=== PATIENT | male | born 1975 | race Caucasian/White ===

== ENCOUNTER 2023-10-03 01:08 | Inpatient (IN) | payer MEDICARE, MEDICAID, SELFPAY ==
[2023-10-03] VITALS (41 sets, daily range): BP systolic 97–190; BP diastolic 56–123; PULSE 69–121; RESP 12–22; TEMP 35.9–36.9; O2SAT 17–99; BMI 24.0; BMI 23.8; BMI 24.2
--- NOTE | 2023-10-03 01:31 | EKG12_ITS ---
Test Reason : CP Blood Pressure : / mmHG Vent. Rate : 103 BPM Atrial Rate : 103 BPM P-R Int : 180 ms QRS Dur : 134 ms QT Int : 374 ms P-R-T Axes : 055 -58 100 degrees QTc Int : 489 ms Sinus tachycardia Left axis deviation Left ventricular hypertrophy with QRS widening and repolarization abnormality ( R in aVL , [place] pr oduct ) Abnormal ECG Confirmed by Ky Brown ([id number]), design editor LANETTE MACIAS ([id number]) on 10/03/2023 10:03:51 AM Referred By: MADDI Confirmed By:Ky Brown
--- NOTE | 2023-10-03 01:36 | EDS_ITS ---
HPI History of Present Illness Chief Complaint: Chest Pain Narrative Narrative: 48-year-old male past medical history of hypertension, coronary artery disease with 1 stent, and ICD/defibrillator placed at [facility] by Dr. Oliver. He states that he had been life flighted there from [facility] back in 2021. He has been noncompliant with his medications and presents for evaluation for intermittent chest pain that he has been having over the last week. He states the pain can last for hours. Sometimes it is associated with nausea and shortness of breath. Other times it may involve diaphoresis. He states that he had quit smoking, but started again and smokes 10 cigarettes a day. No real exacerbating or alleviating factors. He took his antihypertensive yesterday morning, but has not taken aspirin or any other of his medications. He states that he was on numerous medications including spironolactone and other antihypertensives but he cut it down to carvedilol only. Additionally, he states he wants to be evaluated and checked out because he had the hiccups today and thinks it might be related to the chest pain that he has been having. PFSH PFSH Medical History Alcohol abuse Anxiety Asthma Congestive heart failure (CHF) COPD (chronic obstructive pulmonary disease) Crohn's disease Heart attack HLD (hyperlipidemia) Hypertension ICD (implantable cardioverter-defibrillator) in place PAF (paroxysmal atrial fibrillation) Sleep apnea Tobacco use Home Medications alprazolam 0.5 mg tablet 0.5 mg PO TID 10/03/23 [History Last Taken Unknown] carvedilol 25 mg tablet 25 mg PO BID 10/03/23 [History Last Taken Unknown] spironolactone 25 mg tablet 25 mg PO DAILY 10/03/23 [History Last Taken Unknown] Allergy/AdvReac Type Severity Reaction Status Date / Time bee venom protein (honey bee) Allergy Mild Swelling Verified 10/03/23 01:16 Family History (Updated 10/03/23 @ 04:[address] Shellie Monsalve MD) Mother Hypertension Heart disease Father Hypertension CAD (coronary artery disease) Heart disease Myocardial infarction Surgical History Hx of heart artery stent S/P implantation of automatic cardioverter/defibrillator (AICD) Social History (Updated 10/03/23 @ 04:[address] Shellie Monsalve MD) household members: none Smoking Status: Current every day smoker tobacco type: cigarettes Smoking packs per day: 0.5 Smoking cigarettes per day: 10.0 alcohol intake: current alcohol intake frequency: 3 or more drinks per day details: Usually hard liquor, i.e. 7/7 drinks, 3 or more daily. substance use type: does not use ROS ROS ED ROS Narrative Constitutional: No fever, no chills. Intermittent diaphoresis HEENT: No sore throat. No neck pain. No loss of vision. No rhinorrhea. Cardiovascular: Positive chest pain. Positive hiccups. Sometimes chest pain can last hours. No palpitations. No pedal edema. Respiratory: No cough, intermittent shortness of breath. Abdominal: No abdominal pain. Positive nausea. No vomiting. Genitourinary: No dysuria. No hematuria. Musculoskeletal: No myalgias. No arthralgias. Neurologic: No headaches. No dizziness. No lightheadedness. Skin: No rash. No change in color. Psychiatric: No depression. No anxiety. EXAM Physical Exam Narrative Exam Narrative: Afebrile. Vital signs noted. HEENT: Normocephalic. Atraumatic. PERRL, EOMI. Neck soft and supple. No point tenderness or step off. Cardiovascular: Regular rate and rhythm. No murmurs, rubs, or gallops appreciated. Respiratory: No tachypnea. Lungs clear to auscultation bilaterally. Gastrointestinal: Abdomen soft, nontender, with normoactive bowel sounds. No rebound or guarding. Neurological: Awake. Alert. Nonfocal, nonlateralizing. Skin: No rash. Normal color. No pallor. Musculoskeletal: No pedal edema. Full range of motion extremities. Const Vital Signs: 10/03/23 01:09 10/03/23 01:16 10/03/23 01:17 Temperature 98.2 F Temperature Source Oral Pulse Rate 110 H Respiratory Rate 18 Respiratory Effort Normal Non-Labored Blood Pressure 190/112 H 184/123 H Blood Pressure Mean 138 143 Pulse Ox 95 Oxygen Delivery Method Room Air 10/03/23 01:33 10/03/23 01:38 10/03/23 02:51 Temperature 98.5 F Temperature Source Pulse Rate 99 121 H Respiratory Rate 20 H 17 Respiratory Effort Blood Pressure 158/106 H 150/93 H Blood Pressure Mean 123 112 Pulse Ox 93 17 Oxygen Delivery Method Room Air Room Air 10/03/23 01:36 10/03/23 01:37 10/03/23 01:45 Temperature Temperature Source Pulse Rate 86 86 87 Respiratory Rate 14 13 13 Respiratory Effort Blood Pressure 158/106 H Blood Pressure Mean 121 Pulse Ox 98 97 99 Oxygen Delivery Method 10/03/23 02:00 10/03/23 02:15 10/03/23 02:15 Temperature Temperature Source Pulse Rate 90 98 Respiratory Rate 17 18 Respiratory Effort Blood Pressure 150/93 H 150/93 H Blood Pressure Mean 110 110 Pulse Ox 96 98 Oxygen Delivery Method Room Air 10/03/23 02:35 10/03/23 02:45 10/03/23 03:00 Temperature Temperature Source Pulse Rate 117 H 107 H 107 H Respiratory Rate 17 18 18 Respiratory Effort Blood Pressure 175/104 H Blood Pressure Mean 123 Pulse Ox 95 97 96 Oxygen Delivery Method Room Air 10/03/23 03:45 10/03/23 04:00 Temperature Temperature Source Pulse Rate 98 74 Respiratory Rate 12 22 H Respiratory Effort Blood Pressure 166/115 H Blood Pressure Mean 129 Pulse Ox 96 95 Oxygen Delivery Method Heart Score History: Slightly/Non-Suspicious ECG: Normal Age: >45 - <65 years Risk Factors: >/= 3 Risk Factors or History of CAD Score: 3 MDM MDM MDM Narrative Medical decision making narrative: In the differential diagnosis is acute coronary syndrome including non-STEMI versus pulmonary embolism versus hypertensive urgency versus emergency. EKG was obtained and interpreted by myself independently as sinus tachycardia with widened QRS at [address] changes. No STEMI. Patient was administered aspirin orally. He was also administered hydralazine with resultant blood pressure 158/106. Pulse ox ranges from 93 to 95% on room air. I reviewed his laboratory work and he has a normal white count of 5.9, hemoglobin normal at 14.4, hematocrit slightly low at 39.9 with platelet count l ow at 145. His D-dimer is elevated at 1.96, CTA was ordered to help rule out pulmonary embolism. Sodium is slightly low at 135 which I think is nonspecific with potassium low at 3.0 which was replaced orally with 40 mEq. BUN normal at 8 with creatinine 0.99, glucose appropriately elevated at 108 with an anion gap normal at 12. Of significance is his troponin that is elevated as well. It is 586. His D-dimer may be elevated secondary to more of a coronary artery clot. Chest x-ray 1 view had been obtained and interpreted by myself independently as no acute process, no pneumothorax, no pneumonia. There is an implanted defibrillator device. I reviewed the radiology report which confirms my independent interpretation. Given his elevated troponin, APTT and PT will be obtained and he will be started on a heparin drip with a bolus for non-STEMI. Patient will be discussed with the hospitalist, Dr. Monsalve for admission. I did have a discussion with the patient regarding smoking cessation and compliance with antihypertensive and other medications. I reviewed the radiology report for the CTA and there is no evidence of pulmonary embolism. There is no aortic dissection as well. Patient was discussed with Dr. Klein with cardiology, and with Dr. Monsalve with hospitalist medicine. She will continue to trend the platelets while he is on a heparin drip. Disposition is admit in stable condition. History & Record Review Discussion w/independent historian: Patient Additional record(s) reviewed:: No prior records Lab Data Attestation: I reviewed the patient's lab results. Labs: Laboratory Results - last 24 hr 10/03/23 01:15 WBC 5.9 RBC 4.11 L Hgb 14.4 Hct 39.9 L MCV 97.1 H MCH 35.0 H MCHC 36.1 H RDW Std Deviation 82.1 H RDW Coeff of Amanda 24.1 H Plt Count 145 L MPV 9.3 Immature Gran % (Auto) 0.300 Neut % (Auto) 58.3 Lymph % (Auto) 27.5 Becker % (Auto) 9.3 Eos % (Auto) 2.9 Baso % (Auto) 1.7 H Absolute Neuts (auto) 3.4 Absolute Lymphs (auto) 1.62 Nucleated RBC % 0 Differential Comment SCANNED PT 12.0 INR 0.9 APTT 31.4 D-Dimer Quant (PE/DVT) 1.96 H* Sodium 135 L Potassium 3.0 L Chloride 99 Carbon Dioxide 24.0 Anion Gap 12 BUN 8 Creatinine 0.99 Estim Creat Clear Calc 84.39 Est GFR (MDRD) Af Amer 103 Est GFR (MDRD) Non-Af 85 BUN/Creatinine Ratio 8.0 L Glucose 108 H Calcium 8.5 Troponin I High Sens 586 H* Radiography Diagnostic Testing: Clinical Impression(s) from Imaging Studies Chest X-Ray 10/03/23 01:47 IMPRESSION: 1. Implanted defibrillator. 2. No evidence for acute cardiopulmonary pathology. Electronically Signed: Wesley Arcos MD at 2:35 EDT , Chest CTA 10/03/23 02:15 IMPRESSION: 1. No evidence for pulmonary embolism, aortic aneurysm, or aortic dissection. 2. No evidence for acute cardiopulmonary pathology. 3. Coronary artery calcifications. 4. Implanted defibrillator. 5. Fatty liver. Electronically Signed: Wesley Arcos MD at 4:10 EDT , Management Discussion w/another healthcare provider: Hospitalist (Dr. Monsalve) and Director Of Vocational Guidance (Dr. Klein) Discharge Plan Dx/Rx/DC Orders Clinical Impression: Hypertensive emergency, Non-ST elevation MD (NSTEMI), Elevated d-dimer, Hypokalemia Disposition Disposition: Acute Care Hospital [facility]
[2023-10-03] MEDS: hydrALAZINE 20 MG/ML Vial 10 MG IV ×3 (01:39→16:50)
[2023-10-03] MEDS: Aspirin 81 MG TAB.CHEW 324 MG PO (01:39)
[2023-10-03 01:40] LABS: Absolute Lymphocyte Count 1.62 X10^3/uL (0.83-4.51); Absolute Neutrophil Count 3.4 X10^3/uL (2.0-7.7); Basophil% 1.7 % (0-1); Eosinophil# 0.17 X10^3/uL; Eosinophils% 2.9 % (0-5); Hematocrit 39.9 % (40-54); Hemoglobin 14.4 g/dL (13.0-16.5); Lymphocyte # 1.62 X10^3/ul (0.83-4.51); Lymphocyte % 27.5 % (19-41); Mean Corp Hgb Conc 36.1 g/dL (32-36); Mean Corpuscular Volume 97.1 fL (80-94); Mean Platelet Vol. 9.3 fl (6.2-12.0); Monocyte# 0.55 X10^3/uL; Monocyte% 9.3 % (0-10); NRBC Flagged by Analyzer 0 % (0-5); Neutrophil # 3.44 X10^3/uL (2.7-7.7); Neutrophil % 58.3 % (47-70); POSITIVE MORPHOLOGY YES; Platelet Count 145 K/mm3 (150-450); RBC Distribution Width CV 24.1 % (11.6-14.6); RBC Distribution Width SD 82.1 fl (35.1-43.9); Red Blood Count 4.11 M/mm3 (4.6-6.2); White Blood Count 5.9 K/mm3 (4.4-11.0)
--- NOTE | 2023-10-03 01:47 | RAD_ITS ---
EXAM: XR CHEST, 1 VIEW CLINICAL INDICATION: chest pain chest pain TECHNIQUE: Frontal view of the chest. COMPARISON: No relevant prior studies available. FINDINGS: LUNGS AND PLEURAL SPACES: Unremarkable. No consolidation or edema. No pneumothorax. No effusion. HEART: Unremarkable. Cardiac silhouette not enlarged. MEDIASTINUM: Central airways and mediastinal contour are unremarkable. BONES/JOINTS: There is an old healed fracture of the right seventh rib. SOFT TISSUES: Unremarkable. TUBES, LINES AND DEVICES: There is an implanted defibrillator with electrode overlying the left para midline chest. RAD/Chest 1 View (Portable) IMPRESSION: 1. Implanted defibrillator. 2. No evidence for acute cardiopulmonary pathology. Electronically Signed: Wesley Arcos MD at 2:35 EDT Reading Location ID and State: [facility] / [place] , Service support ,
[2023-10-03 01:52] LABS: Differential Comment SCANNED; Differential Indicated SCAN CRITERIA MET
[2023-10-03 02:15] LABS: D-Dimer Quantitative (DVT/PE) 1.96 FEU/ug/m (0.27-0.49)
--- NOTE | 2023-10-03 02:15 | CT_ITS ---
EXAM: CT ANGIOGRAPHY CHEST WITHOUT AND WITH INTRAVENOUS CONTRAST CLINICAL INDICATION: elevated D dimer. left sided cp today, hx afib, heart stents, asthma, copd, chf, ICD, htn, alcohol abuse TECHNIQUE: Helically acquired angiography images were obtained of the chest without and with intravenous contrast. This CT exam was performed using one or more of the following dose reduction techniques: automated exposure control, adjustment of the mA and/or kV according to patient size, and/or use of iterative reconstruction technique. MIP reconstructed images were created and reviewed. CONTRAST: IV 100mL [id number] RADIATION DOSE: CTDIvol = 5.31 mGy, DLP = 220.43 mGy-cm COMPARISON: Chest x-ray 10/03/2023. FINDINGS: PULMONARY ARTERIES: Unremarkable. Normal in caliber. No evidence of pulmonary embolism. AORTA: Unremarkable. Normal in caliber. No evidence of dissection. GREAT VESSELS OF AORTIC ARCH: Unremarkable. Normal in caliber. No evidence of dissection. LUNGS AND PLEURAL SPACES: Unremarkable. No mass. No consolidation or edema. No pleural effusion or thickening. No pneumothorax. HEART: There are coronary artery calcifications. Heart size is normal. No pericardial effusion. MEDIASTINUM: Unremarkable. No mediastinal or hilar adenopathy. Esophagus is unremarkable. No hiatal hernia. THYROID: Unremarkable. No thyroid lesions. BONES/JOINTS: An old healed fracture of the lateral segment of the right seventh rib. There are multilevel degenerative changes in the visualized spine. No suspicious lytic or blastic abnormality. LIVER: There is decreased attenuation of liver consistent with fatty infiltration. TUBES, LINES AND DEVICES: There is an implanted defibrillator, with electrode in subcutaneous fat anterior to the sternum. CT/CTA Chest W/WO Contrast IMPRESSION: 1. No evidence for pulmonary embolism, aortic aneurysm, or aortic dissection. 2. No evidence for acute cardiopulmonary pathology. 3. Coronary artery calcifications. 4. Implanted defibrillator. 5. Fatty liver. Electronically Signed: Wesley Arcos MD at 4:10 EDT Reading Location ID and State: [facility] / [place] , Service support ,
[2023-10-03 02:19] LABS: Anion Gap 12 (5-15); BUN 8 mg/dL (7-18); Calcium,Total 8.5 mg/dL (8.5-10.1); Chloride 99 mmol/L (98-107); Creatinine, Serum 0.99 mg/dL (0.70-1.30); EST Glomerular Filtration Rate 85 mL/min (>60); Est Glom Filt Rate - Afr Amer 103 mL/min (>60); Estimated Creatinine Clearance 84.39 ml/min; Glucose 108 mg/dL (74-106); Sodium Level 135 mmol/L (136-145); Troponin-I HS (w/2H Reflex) 586 pg/mL (3.0-78.0)
[2023-10-03] MEDS: HEPARIN/D5w 25,000 UNITS 25,000 UNITS/250 ML IV.SOLN. 8 UNITS CONT INF (02:43)
[2023-10-03] MEDS: Heparin Injection (Vial) 5,000 UNIT/ML VIAL 4000 UNIT IV (02:43)
[2023-10-03] MEDS: Potassium Chloride Oral Tablet 20 MEQ 40 MEQ PO ×2 (02:44→08:58)
[2023-10-03] MEDS: ALPRAZolam 0.5 MG Tablet PO (02:56)
[2023-10-03 03:00] LABS: International Normalized Ratio 0.9
[2023-10-03 03:01] LABS: Partial Thromboplast Time 31.4 Seconds (24.1-36.2)
--- NOTE | 2023-10-03 03:27 | HP.PCM.HOS_ITS ---
HPI - General General Date of Admission: 10/03/23 Date of Service: 10/03/23 Chief Complaint: Chest pain HPI Narrative The patient is a 48 y/o M w/ PMHx: EtOH abuse (3 or more EtOH drinks daily, often hard liquor drinks) with chronic LFT elevations, LIZ noncompliant with PAP therapy, PAF, Asthma/COPD, HTN, HLD, CAD s/p PCI x 1 per patient report following with cardiology in the [facility] system Dr. Oliver, Presumed HFrEF s/p AICD placement/suspected Ischemic cardiomyopathy but uncertain, Crohn's disease, Tobacco use who presents to the [facility] ED on 10/03/23 with history of significant noncompliance with his medications purposefully weaning himself off various portions of his regimen with ongoing intermittent left sided chest discomfort over the last week sometimes lasting hours associate with nausea without emesis as well as dyspnea and diaphoresis recently resumed smoking as he had previously quit also admitting that he has not been taking his aspirin therapy or statin therapy but on day of presentation he started having dyspepsia as well as hiccups in addition to ongoing chest discomfort with episodes of nausea, dyspnea and diaphoresis prompting eventual ED evaluation. Patient describes the discomfort in his chest as a burning aching sensation to the left chest. He denies any radiation to his arm or neck region. He does not have a current PCP but would like to establish thus options discussed. He is interested in help with EtOH abuse. He notes willingness to restart medications if felt necessary. He notes his pain when it has been at its worst has been 5-6 out of 10 in severity, currently down to 2-3 out of 10 in severity upon current evaluation. Workup in the ED included T98.2, heart rate 110, BP 190/112, respiratory rate 18, 95% on room air with most recent repeat vitals heart rate 98, BP 150/93, respiratory rate 18, 98% on room air, CBC with WBC 5.9, hemoglobin 14.4, platelet 145 without marked shift, unremarkable coags aside D-dimer 1.96, BMP with sodium 135, potassium 3.0, glucose 108, initial troponin 586, chest x-ray with no acute cardiopulmonary findings with implanted defibrillator, CTPA with no acute PE, aortic aneurysm or dissection, no acute cardiopulmonary pathology, implanted defibrillator present, fatty liver, EKG with sinus tachycardia with no acute evidence of ischemia. In the ED patient ministered full-strength aspirin therapy, heparin drip initiated with bolus, alprazolam 0.5 mg p.o. x 1, potassium chloride 40 mill equivalent p.o. x 1 as well as hydralazine 10 mg IV x 1 administered. Discussed with ED and they note intention to review case with Cardiology Dr. Klein given presentation with NSTEMI and underlying history with need for cardiac catheterization consideration. PFSH Medical History Alcohol abuse Anxiety Asthma Congestive heart failure (CHF) COPD (chronic obstructive pulmonary disease) Crohn's disease Heart attack HLD (hyperlipidemia) Hypertension ICD (implantable cardioverter-defibrillator) in place PAF (paroxysmal atrial fibrillation) Sleep apnea Tobacco use Home Medications alprazolam 0.5 mg tablet 0.5 mg PO TID 10/03/23 [History Last Taken Unknown] carvedilol 25 mg tablet 25 mg PO BID 10/03/23 [History Last Taken Unknown] spironolactone 25 mg tablet 25 mg PO DAILY 10/03/23 [History Last Taken Unknown] Allergy/AdvReac Type Severity Reaction Status Date / Time bee venom protein (honey bee) Allergy Mild Swelling Verified 10/03/23 01:16 Family History (Updated 10/03/23 @ 04:[address] Shellie Monsalve MD) Mother Hypertension Heart disease Father Hypertension CAD (coronary artery disease) Heart disease Myocardial infarction Surgical History Hx of heart artery stent S/P implantation of automatic cardioverter/defibrillator (AICD) Social History (Updated 10/03/23 @ 04:[address] Shellie Monsalve MD) household members: none Smoking Status: Current every day smoker tobacco type: cigarettes Smoking packs per day: 0.5 Smoking cigarettes per day: 10.0 alcohol intake: current alcohol intake frequency: 3 or more drinks per day details: Usually hard liquor, i.e. 7/7 drinks, 3 or more daily. substance use type: does not use ROS ROS Narrative Admission Review of Systems: CONSTITUTIONAL: No weight loss, fever, chills, + weakness or fatigue. HEENT: Eyes: No visual loss, blurred vision, double vision or yellow sclerae. Ears, Nose, Throat: No hearing loss, sneezing, congestion, runny nose or sore throat. SKIN: No rash or itching, lesions, wounds. CARDIOVASCULAR: + Chest pain. No palpitations, edema, orthopnea, syncopal events. RESPIRATORY: No shortness of breath, cough or sputum, wheezing, hemoptysis. GASTROINTESTINAL: + Recent increased hiccups, occasional nausea and dyspepsia. No emesis, diarrhea, constipation, abdominal pain, melena, BRBPR. GENITOURINARY: No dysuria, frequency, urgency or retention. NEUROLOGICAL: + Reports tremors/tactiles disturbances when he does not drink, denies any currently. No headache, dizziness, syncope, paralysis, ataxia, numbness or tingling in the extremities, focal weakness, change in bowel or bladder control, seizure. MUSCULOSKELETAL: + muscle, back pain, joint pain or stiffness. HEMATOLOGIC: No anemia, bleeding or bruising. LYMPHATICS: No enlarged nodes. No history of splenectomy. PSYCHIATRIC: + History of anxiety. ENDOCRINOLOGIC: + reports of sweating, cold or heat intolerance. No polyuria or polydipsia. ALLERGIES: + History of asthma. Vital Signs Vital Signs Vital Signs: 10/03/23 01:09 10/03/23 01:16 10/03/23 01:17 Temperature 98.2 F Temperature Source Oral Pulse Rate 110 H Respiratory Rate 18 Respiratory Effort Normal Non-Labored Blood Pressure 190/112 H 184/123 H Blood Pressure Mean 138 143 Pulse Ox 95 Oxygen Delivery Method Room Air 10/03/23 01:33 10/03/23 01:38 10/03/23 02:51 Temperature 98.5 F Temperature Source Pulse Rate 99 121 H Respiratory Rate 20 H 17 Respiratory Effort Blood Pressure 158/106 H 150/93 H Blood Pressure Mean 123 112 Pulse Ox 93 17 Oxygen Delivery Method Room Air Room Air 10/03/23 01:36 10/03/23 01:37 10/03/23 01:45 Temperature Temperature Source Pulse Rate 86 86 87 Respiratory Rate 14 13 13 Respiratory Effort Blood Pressure 158/106 H Blood Pressure Mean 121 Pulse Ox 98 97 99 Oxygen Delivery Method 10/03/23 02:00 10/03/23 02:15 10/03/23 02:15 Temperature Temperature Source Pulse Rate 90 98 Respiratory Rate 17 18 Respiratory Effort Blood Pressure 150/93 H 150/93 H Blood Pressure Mean 110 110 Pulse Ox 96 98 Oxygen Delivery Method Room Air 10/03/23 02:35 10/03/23 02:45 10/03/23 03:00 Temperature Temperature Source Pulse Rate 117 H 107 H 107 H Respiratory Rate 17 18 18 Respiratory Effort Blood Pressure 175/104 H Blood Pressure Mean 123 Pulse Ox 95 97 96 Oxygen Delivery Method Room Air Weight Weight: 153 lb 3.54 oz Body Mass Index (BMI) 24.0 Physical Exam Narrative Physical Examination: General: Awake, alert, oriented x 3 and cooperative, seated upright in the ED bed, notes discomfort is better, currently 2-3 out of 10 in severity of the left chest. Skin: Normal color, normal turgor, no icterus, no cyanosis. Except occasional staged ecchymoses HEENT: AT/NC, EOMI, PERRLA, MMM, no carotid bruits or JVD noted. Lungs: Mildly diminished, greater bases, appropriate effort, no rales, ronchi or wheezing. Heart: Regular rate and rhythm; no gallop, rub audible. Abdomen: Soft, NTTP, ND, mildly hyperactive BS, no severely noted HSM. Extremities: No cyanosis, clubbing, or edema. Neurological: Patient awake, alert, oriented as noted, cognitive function intact; pupils equally reactive to light and accommodation, cranial nerves gross ly normal, moving all 4 extremities, no focal deficits, strength moderately globally Precious secondary to acute presentation complaints Psychiatric: Affect appears fatigued otherwise normal, no acute evidence of depressive or anxiety feelings but does have underlying history. Results Lab / Micro Data 10/03/23 01:15 10/03/23 01:15 Labs: Laboratory Results - last 24 hr 10/03/23 01:15: WBC 5.9, RBC 4.11 L, Hgb 14.4, Hct 39.9 L, MCV 97.1 H, MCH 35.0 H, MCHC 36.1 H, RDW Std Deviation 82.1 H, RDW Coeff of Amanda 24.1 H, Plt Count 145 L, MPV 9.3, Immature Gran % (Auto) 0.300, Neut % (Auto) 58.3, Lymph % (Auto) 27.5, Hinds % (Auto) 9.3, Eos % (Auto) 2.9, Baso % (Auto) 1.7 H, Absolute Neuts (auto) 3.4, Absolute Lymphs (auto) 1.62, Nucleated RBC % 0, Differential Comment SCANNED, PT 12.0, INR 0.9, APTT 31.4, D-Dimer Quant (PE/DVT) 1.96 H*, Sodium 135 L, Potassium 3.0 L, Chloride 99, Carbon Dioxide 24.0, Anion Gap 12, BUN 8, Creatinine 0.99, Estim Creat Clear Calc 84.39, Est GFR (MDRD) Af Amer 103, Est GFR (MDRD) Non-Af 85, BUN/Creatinine Ratio 8.0 L, Glucose 108 H, Calcium 8.5, Troponin I High Sens 586 H* Imaging Radiology Impression Chest X-Ray 10/03/23 01:47 IMPRESSION: 1. Implanted defibrillator. 2. No evidence for acute cardiopulmonary pathology. Electronically Signed: Wesley Arcos MD at 2:35 EDT Reading Location ID and State: [facility] / [place] , Service support , Assessment & Plan Assessment/Plan (1) Non-ST elevation MD (NSTEMI): (2) Hypertensive emergency: PLAN: Plan The patient is a 48 y/o M w/ PMHx: [facility] records of EtOH abuse with chronic LFT elevations, PAF, Asthma/COPD, HTN, HLD, CAD s/p PCI x 1 per patient report following with cardiology in the [facility] Dr. Oliver, Presumed HFrEF s/p AICD placement/suspected Ischemic cardiomyopathy but uncertain, Crohn's disease, Tobacco use who presents to the [facility] ED on 10/03/23 with history of significant noncompliance with his medications purposefully weaning himself off various portions of his regimen with ongoing intermittent chest discomfort over the last week sometimes lasting hours associate with nausea without emesis as well as dyspnea and diaphoresis recently resumed smoking as he had previously quit also admitting that he has not been taking his aspirin therapy or statin therapy but on day of presentation he started having dyspepsia as well as hiccups in addition to ongoing chest discomfort with episodes of nausea, dyspnea and diaphoresis prompting eventual ED evaluation. #1. Chest Pain w/ Acute NSTEMI complicated by #2: EKG in ED w/ ST without acute evidence of ischemia, CXR w/ no acute cardiopulmonary findings, CTPA with no acute PE, aortic aneurysm or dissection, no acute cardiopulmonary pathology, implanted defibrillator present, fatty liver, Trop elevated, 586 initial. Will admit to PCU, maintain on a monitored bed, continue serial cardiac enzymes and EKGs. Obtain magnesium level upon admission. Will continue heparin drip initiated in the ED with bolus already administered. Continue medical management w/ asa, BB, statin w/ AM FLP. ECHO requested. Cardiology consulted. Maintain NPO after midnight. ASA, NG, morphine. Requested records from [facility] as patient had cardiac care in the system. #2. Hypertensive emergency: Patient admits to being noncompliant with his hypertensive medications which unfortunately has likely in part led to his significantly elevated blood pressure coupled with #1, in the ED patient ministered hydralazine 10 mg IV x 1 with good effect, will continue Coreg, spironolactone and given no allergy listed will initiate at least moderate dose DANN inhibitor, as needed IV hydralazine. Any regimen adjustments or changes to discretion of cardiology. From review of also previous records appears to have been on hydralazine 100 mg p.o. 3 times daily as well as high-dose Imdur at some point. #3. Hypokalemia: Admission K+ 3.0, magnesium level requested, supplementation given, repeat level in AM. #4. Presumed HFrEF s/p AICD placement/suspected Ischemic cardiomyopathy but uncertain: Will continue aspirin, adding high-dose statin, continue Coreg, adding at least moderate dose DANN inhibitor, continue spironolactone, not on any other diuretic regimen, judiciously hydrate given likely need for cardiac catheterization and unclear history. Echocardiogram requested. Will request AICD interrogation. Requested records from [facility] as patient had cardiac care in the system. #5. Hyponatremia, suspect chronic component: Admission sodium 135, chloride 99, does have alcohol abuse history, potentially could be small component of hypovolemia given recent ongoing discomfort and potentially decreased oral intake, will judiciously hydrate given underlying heart failure history and repeat CMP in AM. #6. CAD w/ Hx MD including STEMI: Status post previous PCI, will maintain on aspirin, adding high-dose statin, continue Coreg, adding DANN inhibitor given significant elevated blood pressure upon presentation, from review with patient unfortunately he has been noncompliant and doing weaning himself off of medications. Requested records from [facility] as patient had cardiac care in the system. #7. PAF: We will continue patient home Coreg regimen, per current list does not appear to be anticoagulated but again patient has been noncompliant with medical therapies, currently maintained on heparin drip given acute presentation number 1 but following would be appropriate to transition back to potentially a NOAC. #8. Alcohol abuse with chronically elevated LFTs: Will obtain hepatic profile to be cautious. Patient notes routine consumption of often 3 or more EtOH liquor drinks per day. Will maintain on CIWA protocol, MVI, thiamine and folic acid. CM consulted. Encouraged consideration of alcohol withdrawal protocol treatment with phenobarbital and patient notes that if he begins to have symptoms he will pursue this. #9. Hyperlipidemia: Per current list does not appear to be on statin therapy, will add high-dose, FLP in AM. #10. Thrombocytopenia, unclear chronicity: Admission platelets 145, no comparison, unclear if chronic or acute, will repeat CBC to further elucidate. #11. Chronic COPD/asthma: Per current list not on any chronic regimen, given presentation to maximize pulmonary status will initiate on ATC budesonide the rapy, PRN albuterol, HOB, IS parameters. #12. Tobacco Abuse: Encouraged cessation, inpatient consultation per RT, NR if desired. #13. Crohn's disease: Per current list does not appear to be on chronic regimen however verifying, encourage continued outpatient follow-up with gastroenterology as previously arranged. #14. Anxiety: Although patient has been prescribed 3 times daily alprazolam he denies taking this recently thus we will at this time discontinue especially given underlying alcohol abuse. #15. LIZ: Noncompliant, encourage CPAP q HS. #16. DVT Prophylaxis: Continue heparin drip initiated in the ED. #17. CODE status: Patient HCPOA and living will are not in place but he notes his fianc?e would be his decision-maker if necessary. Discussed CODE status at length including difference between FULL code, DNR-CCA and DNR-CC status. Following discussions about the differences in these status, requested Full Code status. Advanced Care Planning Face to Face Time: 16 minutes. Charges/Coding Visit Charges Inpatient E&M: 12985 Init Hosp L3 Procedures Hospitalists Procedures: 53604 Advncd Care Plan 30 Min
[2023-10-03 03:35] LABS: Reflex Troponin-HS? (from REC) Y
[2023-10-03 04:21] LABS: Troponin-I HS 624 pg/mL (3.0-78.0)
[2023-10-03 04:54] LABS: AST(SGOT) 77 U/L (15-37); Alanine Aminotransfer ALT/SGPT 48 U/L (16-61); Albumin, Serum 3.3 g/dL (3.2-5.0); Alkaline Phosphatase 239 U/L (45-117); Bilirubin, Direct 0.41 mg/dL (0.00-0.30); Globulin 3.4 g/dL (2.2-4.2); Magnesium 1.5 mg/dL (1.6-2.6); Phosphorus 2.1 mg/dL (2.5-4.9); Protein, Total 6.7 g/dL (6.4-8.2)
--- NOTE | 2023-10-03 05:39 | EKG12_ITS ---
Test Reason : ADMISSION EKG Blood Pressure : / mmHG Vent. Rate : 102 BPM Atrial Rate : 102 BPM P-R Int : 170 ms QRS Dur : 126 ms QT Int : 394 ms P-R-T Axes : 062 -53 094 degrees QTc Int : 513 ms Sinus tachycardia with occasional Premature ventricular complexes Possible Left atrial enlargement Left axis deviation Left ventricular hypertrophy with QRS widening ( [place] product ) Cannot rule out Septal infarct , age undetermined Abnormal ECG When compared with ECG of 03-OCT-2023 01:06, MANUAL COMPARISON REQUIRED, DATA IS UNCONFIRMED Confirmed by JACQUELINE ROGERS, LALO ([id number]), editor map LANETTE MACIAS ([id number]) on 10/03/2023 9:40:41 AM Referred By: Confirmed By:LALO PHILLIPS MD
--- NOTE | 2023-10-03 05:39 | ECHOCS_ITS ---
Reason For Study: Chest pain Procedure This was a 2D Doppler, Color Flow transthoracic echocardiogram. The study was technically difficult. Exam performed portable in patient room. Left Ventricle Normal LV size. Severe concentric left ventricular hypertrophy. The estimated ejection fraction is 50 %. Mild segmental systolic dysfunction (see wall motion). Stage 1 diastolic dysfunction. Mid- Inferior: Hypokinetic. Infero-Basal: Akinetic. Mid-Posterior: Hypokinetic. Posterior-Basal: Severely hypokinetic. Right Ventricle Normal RV size. Normal systolic function. Atria Normal left atrium. Normal right atrium. Mitral Valve Normal mitral valve. Tricuspid Valve Normal tricuspid valve. Aortic Valve Trisinus/trileaflet aortic valve. Pulmonic Valve Normal pulmonic valve. Great Vessels Normal aortic root. The pulmonary artery is normal size. Inferior vena cava collapse with respiration. Pericardium/Pleural No pericardial effusion. Medication Diluted definity 2ml given slow IV push to enhance endocardial definition. MMode/2D Measurements & Calculations LVIDd: 4.0 cm IVSd: 1.7 cm Ao root diam: 3.5 cm LVIDs: 2.6 cm LVPWd: 1.5 cm RVDd: 2.9 cm FS: 35.4 % LAV(MOD-bp): 45.5 ml LVAd ap4: 35.6 cm2 LVAd ap2: 29.9 cm2 LAV(MOD-bp) Indexed: 25.2 ml/m2 LVLd ap4: 8.9 cm LVLd ap2: 8.6 cm LAV(MOD-sp2): 50.5 ml EDV(MOD-sp4): 121.2 ml EDV(MOD-sp2): 90.9 ml LAV(MOD-sp4): 36.0 ml EDV(sp4-el): 121.0 ml EDV(sp2-el): 87.7 ml LVAs ap4: 19.7 cm2 LVAs ap2: 16.8 cm2 LVLs ap4: 7.8 cm LVLs ap2: 7.6 cm ESV(MOD-sp4): 42.0 ml ESV(MOD-sp2): 35.2 ml ESV(sp4-el): 42.0 ml ESV(sp2-el): 31.7 ml EF(MOD-sp4): 65.4 % EF(MOD-sp2): 61.3 % EF(sp4-el): 65.3 % SV(MOD-sp4): 79.2 ml SV(MOD-sp2): 55.8 ml SV(sp4-el): 78.9 ml LA A4 area: 15.1 cm2 LA dimension(2D): 4.0 cm RA A4 area: 13.2 cm2 TAPSE: 1.6 cm Time Measurements MV dec time: 0.23 sec Doppler Measurements & Calculations MV E max izaiah: 58.3 cm/sec Lat Peak E' Izaiah: 10.4 cm/sec Med Peak E' Izaiah: 6.2 cm/sec MV A max izaiah: 64.2 cm/sec E/E' lat: 5.6 E/E' med: 9.4 MV E/A: 0.91 Ao V2 max: 101.5 cm/sec LV V1 max: 97.3 cm/sec MV dec slope: 255.6 cm/sec2 Ao max P.1 mmHg LV V1 max P.8 mmHg Ao V2 mean: 70.9 cm/sec LV V1 mean P.1 mmHg Ao mean P.3 mmHg LV V1 mean: 68.4 cm/sec Ao V2 VTI: 16.5 cm LV V1 VTI: 14.3 cm AV (velocity ratio): 0.87 PA V2 max: 88.8 cm/sec ECHO/Echo Complete W/ Contrast Interpretation Summary Normal LV size. Severe concentric left ventricular hypertrophy. The estimated ejection fraction is 50 %. Mild segmental systolic dysfunction (see wall motion). Stage 1 diastolic dysfunction. Structurally normal valves. Contrast injection was performed. Ordering Physician: Shellie Monsalve Performed By: Trae Giron RCS
[2023-10-03] MEDS: 0.9% Normal Saline (1000mL) 1,000 ML 100 ML IV (06:16)
[2023-10-03] MEDS: Potassium Phosphate 21 MM in 0.9% Normal Saline (250mL Bag) 250 ML 84 MM IV (06:17)
[2023-10-03] MEDS: 0.9% Saline Lock 10 ML Syringe IV ×2 (06:21→16:36)
--- NOTE | 2023-10-03 06:21 | CON.PCM.CA_ITS ---
Assessment & Plan Assessment/Plan (1) Non-ST elevation SC (NSTEMI): PLAN: He presents with a non-ST elevation myocardial infarction. He has had a previous coronary artery stenting. He has been noncompliant with his medications and unfortunately continues to use tobacco products. My recommendation will be as follows: * Aspirin * Restart carvedilol * Left heart catheterization which demonstrated patent stent in the left anterior descending artery and a totally occluded right coronary artery with [id number] collaterals. * High intensity statin * I will recommend medical therapy. (2) Hypertensive emergency: PLAN: His blood pressure is uncontrolled because of noncompliance. I would recommend restarting the carvedilol * Restart him on lisinopril * May need to add amlodipine * Continue spironolactone * Echocardiogram to assess ventricular function which demonstrated an ejection fraction of approximately 50% with segmental wall motion abnormalities present. * Replace electrolytes. (3) ICD (implantable cardioverter-defibrillator) in place: PLAN: He does have a subcutaneous ICD in place. This will need to be interrogated and he will need to be seen through our device clinic as well. Will ask our device nurse to evaluate him sometime. Thank you for allowing me to participate in the care of your patient. Please don't hesitate to call if any issues arise. HPI Consult Data Date of Consult: 10/03/23 HPI Narrative HPI Narrative: KARTHIK TOUSSAINT, is a 48 M who presents to the emergency room with chest discomfort. He has a history of hypertension, coronary artery disease, chronic tobacco abuse, status post previous stenting, and subcutaneous ICD implantation at [facility] by Dr. Valdovinos. This was in 2021. He has been noncompliant with his medications and only take his carvedilol. He has not been on any aspirin or clopidogrel. He says that he has been having intermittent chest discomfort over the last week occasionally associated with nausea and some shortness of breath and diaphoresis. Yesterday he presented back with the same to the emergency room was evaluated was noted to have rising cardiac enzymes. His blood pressure was also elevated. Cardiology was consulted for further evaluation and management. At this particular time he remains pain-free. He also did have some hiccups which he says were bothersome. [facility] Medical History Alcohol abuse Anxiety Asthma Congestive heart failure (CHF) COPD (chronic obstructive pulmonary disease) Crohn's disease Heart attack HLD (hyperlipidemia) Hypertension ICD (implantable cardioverter-defibrillator) in place PAF (paroxysmal atrial fibrillation) Sleep apnea Tobacco use Home Medications carvedilol 25 mg tablet 25 mg PO BID 10/03/23 [History Last Taken Unknown] spironolactone 25 mg tablet 25 mg PO DAILY 10/03/23 [History Last Taken Unknown] Allergy/AdvReac Type Severity Reaction Status Date / Time bee venom protein (honey bee) Allergy Mild Swelling Verified 10/03/23 01:16 Family History Mother Hypertension Heart disease Father Hypertension CAD (coronary artery disease) Heart disease Myocardial infarction Surgical History Hx of heart artery stent S/P implantation of automatic cardioverter/defibrillator (AICD) Social History household members: none number of children: 1 service: No current occupational status: disabled pets and animals: No Smoking Status: Current every day smoker tobacco type: cigarettes Smoking packs per day: 0.5 Smoking cigarettes per day: 10.0 alcohol intake: current alcohol intake frequency: 3 or more drinks per day details: Whiskey 3-4 shots per day last drink october 01 substance use type: does not use ROS Constitutional Constitutional: Denies fever(s) or weight loss Eyes Eyes: Reports systems reviewed and no addt'l complaints, except as documented ENT HEENT: Reports systems reviewed and no addt'l complaints, except as documented Cardiovascular Cardiovascular: Denies chest pain at rest, chest pain with activity, dyspnea at rest, dyspnea on exertion, edema, palpitations or paroxysmal nocturnal dyspnea Respiratory/Chest Respiratory/Chest: Denies dyspnea on exertion, productive cough, shortness of breath at rest or shortness of breath with exertion Gastrointestinal Gastrointestinal: Denies change in bowel habits, nausea, vomiting or weight changes Genitourinary Genitourinary: Denies difficulty urinating Musculoskeletal Musculoskeletal: Denies joint stiffness or muscle weakness Integumentary Integumentary: Denies lesions Neurologic Neurologic: Denies dizziness or syncope Psychiatric Psychiatric: Denies anxiety Endocrine Endocrinology: Denies excessive sweating or fatigue Hematologic/Lymphatic Hematologic/Lymphatic: Denies anemia Allergic/Immunologic Allergic/Immunologic: Denies seasonal rhinorrhea Physical Exam Const alert, oriented x3 and no apparent distress General Appearance: cooperative HEENT hearing grossly normal bilaterally Head and Scalp: atraumatic Eyes EOMs intact bilaterally Neck General: normal visual inspection Chest inspection of chest normal and palpation of chest normal Resp normal respiratory effort Auscultation: clear to auscultation bilaterally Cardio regular rate, regular rhythm, S1 normal heart sound and S2 normal heart sound Jugular Venous Distention: JVD GI normal to inspection, nondistended, normoactive bowel sounds Extremity normal capillary refill and no pedal edema Peripheral Pulses: Yes pulses 2+ throughout and femoral pulses present Skin no rashes or lesions noted Neuro oriented x3 and CN's II-XII intact bilaterally Psych Appearance: grossly normal and appropriate Risk Stratification Risk Stratification Applicable: Yes Age >/= 65: No >/= 3 CAD Risk Factors (HTN, HLD, DM, family hx of CAD, or current smoker): No Aspirin Use in the Past 7 Days: No Severe Angina (>/= episodes in 24 hours): No EKG ST Changes >/= 0.5mm: No Positive Cardiac Marker: Yes LAURIE Risk Stratification Score: 1 LAURIE % Risk: 5% Risk Objective Data Vital Signs: Vital Signs Temp Pulse Resp BP Pulse Ox O2 Del Method 98.5 F 101 H 17 124/80 H 94 Room Air 10/03/23 02:51 10/03/23 05:15 10/03/23 05:15 10/03/23 05:15 10/03/23 04:42 10/03/23 04:34 Oxygen Delivery Method Room Air Weight: 147 lb 4.301 oz Body Mass Index (BMI) 23.8 Lab / Micro Data 10/03/23 01:15 10/03/23 01:15 Labs: Laboratory Results - last 24 hr 10/03/23 01:15: WBC 5.9, RBC 4.11 L, Hgb 14.4, Hct 39.9 L, MCV 97.1 H, MCH 35.0 H, MCHC 36.1 H, RDW Std Deviation 82.1 H, RDW Coeff of Amanda 24.1 H, Plt Count 145 L, MPV 9.3, Immature Gran % (Auto) 0.300, Neut % (Auto) 58.3, Lymph % (Auto) 27.5, [place] % (Auto) 9.3, Eos % (Auto) 2.9, Baso % (Auto) 1.7 H, Absolute Neuts (auto) 3.4, Absolute Lymphs (auto) 1.62, Nucleated RBC % 0, Differential Comment SCANNED, PT 12.0, INR 0.9, APTT 31.4, D-Dimer Quant (PE/DVT) 1.96 H*, Sodium 135 L, Potassium 3.0 L, Chloride 99, Carbon Dioxide 24.0, Anion Gap 12, BUN 8, Creatinine 0.99, Estim Creat Clear Calc 84.39, Est GFR (MDRD) Af Amer 103, Est GFR (MDRD) Non-Af 85, BUN/Creatinine Ratio 8.0 L, Glucose 108 H, Calcium 8.5, Troponin I High Sens 586 H* 10/03/23 03:35: Phosphorus 2.1 L, Magnesium 1.5 L, Total Bilirubin 0.90, Direct Bilirubin 0.41 H, AST 77 H, ALT 48, Alkaline Phosphatase 239 H, Troponin I High Sens 624 H*, Total Protein 6.7, Albumin 3.3, Globulin 3.4 Cardiology Labs/Tests 10/03/23 01:15: WBC 5.9, RBC 4.11 L, Hgb 14.4, Hct 39.9 L, MCV 97.1 H, MCH 35.0 H, MCHC 36.1 H, Plt Count 145 L, MPV 9.3, Immature Gran % (Auto) 0.300, Neut % (Auto) 58.3, Lymph % (Auto) 27.5, [place] % (Auto) 9.3, Eos % (Auto) 2.9, Baso % (Auto) 1.7 H, Absolute Neuts (auto) 3.4, Nucleated RBC % 0, PT 12.0, INR 0.9, APTT 31.4, D-Dimer Quant (PE/DVT) 1.96 H*, Sodium 135 L, Potassium 3.0 L, Chloride 99, Carbon Dioxide 24.0, Anion Gap 12, BUN 8, Creatinine 0.99, Est GFR (MDRD) Af Amer 103, Est GFR (MDRD) Non-Af 85, BUN/Creatinine Ratio 8.0 L, Glucose 108 H, Calcium 8.5 10/03/23 03:35: Phosphorus 2.1 L, Magnesium 1.5 L, Total Bilirubin 0.90, Direct Bilirubin 0.41 H Rhythm: EKG: ECHO: Stress Test: Cardiac Cath: PCI: CT Surgery: Holter monitor: EPS: PPM: CXR: Chest CT Scan: Radiography Diagnostic Testing: Radiology Impression Chest X-Ray 10/03/23 01:47 IMPRESSION: 1. Implanted defibrillator. 2. No evidence for acute cardiopulmonary pathology. Electronically Signed: Wesley Arcos MD at 2:35 EDT , Chest CTA 10/03/23 02:15 IMPRESSION: 1. No evidence for pulmonary embolism, aortic aneurysm, or aortic dissection. 2. No evidence for acute cardiopulmonary pathology. 3. Coronary artery calcifications. 4. Implanted defibrillator. 5. Fatty liver. Electronically Signed: Wesley Arcos MD at 4:10 EDT ,
[2023-10-03] MEDS: Carvedilol 25 MG Tablet PO ×2 (06:48→22:25)
[2023-10-03] MEDS: Aspirin E.C. 81 MG Tablet PO (06:48)
[2023-10-03] MEDS: Lisinopril 10 MG Tablet PO (06:48)
[2023-10-03] MEDS: Magnesium Sulfate 2 GM in Dextrose 5%-Water (100mL Bag) 100 ML IV (07:00)
[2023-10-03] MEDS: Budesonide Respules 0.5 MG/2 ML AMPUL.NEB. INHALATION ×2 (07:27→20:33)
[2023-10-03 07:29] LABS: Cholesterol 219 mg/dL (200); High Density Lipoprotein 122 mg/dL; Triglycerides 101 mg/dL; Very Low Density Lipoprotein 20 mg/dL (5-40)
[2023-10-03 07:32] LABS: Troponin-I HS 589 pg/mL (3.0-78.0)
[2023-10-03 09:01] LABS: Partial Thromboplast Time 30.4 Seconds (24.1-36.2)
[2023-10-03] MEDS: Spironolactone 25 MG Tablet PO (10:46)
[2023-10-03] MEDS: Thiamine Hydrochloride 100 MG Tablet PO (10:46)
[2023-10-03] MEDS: Folic Acid 1 MG Tablet PO (10:46)
[2023-10-03] MEDS: Famotidine 20 MG Tablet PO ×2 (10:50→22:26)
--- NOTE | 2023-10-03 13:45 | CASEMGMT ---
RN CM Face to Face with patient for initial transition planning/care coordination assessment. RN CM introduced self and role at [facility]. Patient lying in bed, alert and oriented, mother at bedside. Patient willing to participate in assessment and is able to answer all questions appropriately. Care providers, pharmacy, and demographics verified. PCP: No PCP, has list from girlfriend Specialists: none Preferred Pharmacy: [facility]; [facility] at discharge. Insurance: [facility] Prescription Benefit: yes Living Will/HPOA: none LNOK: mother, girlfriend Living Arrangements: Patient lives alone in a first floor apartment with 2 steps to enter. Patient states he is independent at home. Transportation: Mother, girlfriend DME/HHC: Patient denies DME in the home. Patient denies previous HHC or SNF. Patient states he smokes 1/2 ppd of cigarettes, marijuana a few times per week, and drink 2-3 mixed drinks daily. RN CM inquired if patient would like cessation resources, patient denied resources. Patient wishes to discharge home, denies need for home health at this time. Patient states he has no further needs or concerns at this time. CM to follow for discharge planning needs that may arise. Disposition Plan: Patient to discharge home with family support and follow-up plans in place. Krystle PHILIP, RN, CM
--- NOTE | 2023-10-03 14:08 | DCINST_ITS ---
Discharge Instructions Diet Discharge Diet: Low fat / Low cholesterol Dressing / Incision Call your doctor if you observe: Fever of 101 or Higher, Shortness of breath, Dizziness, Fainting spells, Swelling in the ankles, Chest pain and Increased palpitations (irregular heartbeat) Follow Up Care Test Results: Test results from this visit will be discussed in further detail at your follow- up appointment, if applicable. Discharge Plan Admission Admit Date/Time: 10/03/23 04:22 Attending Provider: Peyman Garcia Primary Care Provider: Care Physician,No Primary Consulting Providers: Danyel Klein; Shellie Monsalve Discharge Orders/Prescriptions Prescriptions: New atorvastatin 80 mg Tablet 80 mg PO QHS 30 Days Qty: 30 0RF aspirin 81 mg Tablet,Delayed Release (Dr/Ec) 81 mg PO BREAKFAST 30 Days Qty: 30 0RF lisinopril 10 mg Tablet 10 mg PO DAILY 30 Days Qty: 30 0RF potassium chloride 20 mEq tablet extended release 20 meq PO DAILY Qty: 14 0RF Continued carvedilol 25 mg tablet 25 mg PO BID spironolactone 25 mg tablet 25 mg PO DAILY Referrals / Follow Up: Danyel Klein MD [Med Staff - Active Staff] - Within 1 Month Care Physician,No Primary [Primary Care Provider] - Disposition Disposition (needs filled in before D/C Order can be placed): Home, Self Care
--- NOTE | 2023-10-03 14:16 | CL.D_ITS ---
Patient Name: KARTHIK TOUSSAINT Study Date: 10/03/2023 Performing: Danyel Klein MD Ht: 67 inches 170.18 cm : 1975 Wt: 147.27 lbs 66.8 kg Age: 48 Gender: male BSA: 1.78 PROCEDURE(S) PERFORMED DC01-([id number])LHC/COR/LV CLINICAL PROFILE AND INDICATIONS Indications: Suspected CAD Heart Failure: None Stress/Imaging Stress/Image Study Performed: No CAD Presentations: Unstable angina. CONCLUSIONS Totally occluded right coronary artery with [id number] collaterals mildly reduced left ventricular ejection fraction previously placed stent in the LAD is patent and subcutaneous ICD is in good position. RECOMMENDATIONS Medical therapy Medication compliance is recommended. DESCRIPTION OF PROCEDURE The patient arrived to the procedure lab. The risks and benefits of the procedure as well as a full description of our services here and current unavailability of surgical backup were fully explained to the patient and/or their significant other prior to the catheterization. The Timeout was completed, verifying the correct patient and procedure. The patient's procedural site was prepped and draped in the usual fashion. Local anesthetic was given subcutaneously to right radial region with Lidocaine 2%. Local anesthetic was given subcutaneously to right ulnar region with Lidocaine 2%. Using a modified Seldinger technique, arterial access was obtained via the right ulnar artery, a 6Fr sheath was inserted. Left Coronary Artery selective angiography was performed in multiple views using a 5 Fr. 4.0 Chataignier catheter. Right Coronary Artery selective angiography was then performed in multiple views using a 5 Fr. 4.0 Chataignier catheter. Left Ventriculography was performed in SANDOVAL projection using a 5 Fr. Pigtail catheter. LV to AO pullback pressures were then recorded.The arterial sheath was pulled and a TR Band was applied for hemostasis, 9cc of air CORONARY ANGIOGRAPHY DOMINANCE: Right Dominant LEFT HEART ASSESSMENT Left Ventricular Ejection Fraction: by LV Gram 45 % Inferior Basal Akinesis Depressed Left Ventricular systolic function LEFT MAIN: Mild calcification, Mild luminal irregularities LEFT ANTERIOR DESCENDING ARTERY: Previously placed stent in the left anterior descending artery is patent with no significant stenosis noted. CIRCUMFLEX ARTERY: Small vessel with moderate luminal irregularities present. Left to right collaterals noted RIGHT CORONARY ARTERY: PROX RCA: is occluded COLLATERAL FLOW: Collateral flow from Left to Right COMPLICATIONS No Complications PROCEDURE MEDICATIONS Fentanyl 50 mcg IV Versed 1 mg IV Oxygen: 2 L/min via nasal cannula Heparin given IA 10/03/2023 09:59:32 Verapamil 2.5mg, 3000 units of Heparin given IA 10/03/2023 09:59:32 SUMMARY OF HEMODYNAMIC DATA Time AIR REST ECG 09:15:17 LV 95/5, 10 10:01:35 LV 94/5, 10 10:01:42 LVp 93/5, 9 10:01:46 AOp 89/63 (75) 10:01:51 AO 96/64 (78) SA 10:02:08 LVp 95/5, 11 10:08:15 AOp 98/58 (76) 10:08:20 10:19:53 Signed By Danyel Klein MD On 10/03/2023 14:15:33 Danyel Klein MD
--- NOTE | 2023-10-03 15:02 | PHA.DC_ITS ---
Pharmacy [facility] Pharmacy Service has performed discharge medication reconciliation and counseling for this patient. 1. ASPIRIN 81MG PO BREAKFAST 2. ATORVASTATIN 80MG PO QHS 3. LISINOPRIL 10MG PO DAILY 4. POTASSIUM CHLORIDE 20MEQ PO DAILYCM The patient's discharge medication list was reviewed for discrepancies and discrepancies were resolved. The patient was counseled on the following discharge medications and changes in medications for homegoing were reviewed. The Reason for Use, instructions for use, and potential side effects were revie wed for all new medications. The patient's questions regarding all of their medications were answered. The patient was able to verbally demonstrate an understanding of their discharge medications. Medications at Discharge Home Medications aspirin 81 mg tablet,delayed release 81 mg PO BREAKFAST 30 days #30 tabs 10/03/23 atorvastatin 80 mg tablet 80 mg PO QHS 30 days #30 tabs 10/03/23 carvedilol 25 mg tablet 25 mg PO BID BP 10/03/23 lisinopril 10 mg tablet 10 mg PO DAILY 30 days #30 tabs 10/03/23 potassium chloride 20 mEq tablet,extended release 20 meq PO DAILY #14 tabs 10/03/23 spironolactone 25 mg tablet 25 mg PO DAILY BP/fluid retention 10/03/23
--- NOTE | 2023-10-03 16:11 | EKG12_ITS ---
Test Reason : Blood Pressure : / mmHG Vent. Rate : 071 BPM Atrial Rate : 071 BPM P-R Int : 154 ms QRS Dur : 134 ms QT Int : 436 ms P-R-T Axes : 008 -48 109 degrees QTc Int : 473 ms Normal sinus rhythm Left axis deviation Non-specific intra-ventricular conduction block Minimal voltage criteria for LVH, may be normal variant ( Jose Armando product ) T wave abnormality, consider lateral ischemia Abnormal ECG Confirmed by Ky Brown ([id number]), production editor LANETTE MACIAS ([id number]) on 10/04/2023 10:08:13 AM Referred By: JASSI Confirmed By:Ky Brown
[2023-10-03] MEDS: LORazepam 1 MG Tablet PO (18:23)
--- NOTE | 2023-10-03 18:31 | PCM.PN.BLA ---
Progress Note When I went and discussed with him the possibility of discharge today he was willing to go home however he did appear like he was going through alcohol withdrawal which he vehemently denies as he says he only takes 2 drinks a day. On the way out the door he developed some shortness of breath and hypertension and rest did not significantly lower these numbers therefore I discussed with him the need to stay in the hospital which she agreed to. Will continue to monitor and evaluate in the morning
[2023-10-03] MEDS: Atorvastatin Calcium 80 MG Tablet PO (22:25)
[2023-10-04] VITALS (7 sets, daily range): BP systolic 122–169; BP diastolic 85–120; PULSE 70–94; RESP 16–18; TEMP 36.3–36.4; O2SAT 94–97; BMI 24.3
[2023-10-04] MEDS: LORazepam 1 MG Tablet PO ×3 (00:30→12:04)
[2023-10-04] MEDS: hydrALAZINE 20 MG/ML Vial 10 MG IV (06:48)
[2023-10-04] MEDS: 0.9% Saline Lock 10 ML Syringe IV (06:49)
[2023-10-04] MEDS: Budesonide Respules 0.5 MG/2 ML AMPUL.NEB. INHALATION (07:23)
[2023-10-04 08:02] LABS: Anion Gap 8 (5-15); BUN 10 mg/dL (7-18); BUN/Creat Ratio 11.5 RATIO (10-20); Calcium,Total 8.8 mg/dL (8.5-10.1); Chloride 106 mmol/L (98-107); Creatinine, Serum 0.87 mg/dL (0.70-1.30); EST Glomerular Filtration Rate 99 mL/min (>60); Est Glom Filt Rate - Afr Amer 120 mL/min (>60); Estimated Creatinine Clearance 92.69 ml/min; Glucose 114 mg/dL (74-106); Magnesium 1.7 mg/dL (1.6-2.6); Potassium 3.2 mmol/L (3.5-5.1); Sodium Level 137 mmol/L (136-145)
[2023-10-04] MEDS: Multivitamins,Ther W-Minerals Tablet 1 TABLET PO (09:12)
[2023-10-04] MEDS: Carvedilol 25 MG Tablet PO (09:12)
[2023-10-04] MEDS: Thiamine Hydrochloride 100 MG Tablet PO (09:12)
[2023-10-04] MEDS: Folic Acid 1 MG Tablet PO (09:12)
[2023-10-04] MEDS: Famotidine 20 MG Tablet PO (09:12)
[2023-10-04] MEDS: Spironolactone 25 MG Tablet PO (09:12)
[2023-10-04] MEDS: Lisinopril 10 MG Tablet PO (09:13)
[2023-10-04] MEDS: Aspirin E.C. 81 MG Tablet PO (09:14)
--- NOTE | 2023-10-04 11:54 | CASEMGMT ---
Patient has order for discharge. RN CM in to discuss needs at discharge. Patient has information to schedule at [facility]. Patient denies further needs or help at discharge. Patient had no further questions or concerns.
[2023-10-04] MEDS: Potassium Phosphate 30 MM in 0.9% Normal Saline (250mL Bag) 250 ML 42 MM IV (11:56)
[2023-10-04] MEDS: Magnesium Sulfate 2 GM in Dextrose 5%-Water (100mL Bag) 100 ML IV (11:56)
--- NOTE | 2023-10-04 14:59 | DS.PCM_ITS ---
Providers Date of Admission: 10/03/23 Primary Care Physician: No Primary Care Phys Consultations 10/03/23 05:39 Consult: Cardiology Routine Consulting Provider: Danyel Klein Reason for Consult: Chest Pain EMERGENT Consult: No MD Notified: Yes Date Notified: 10/03/23 Time Notified: 04:23 Method of Notification: ED Physician Initiated Reason For Visit: NSTEMI, HTN EMERGENCY Diagnosis Discharge Diagnosis (1) Non-ST elevation SC (NSTEMI): Status: Acute Code(s): I21.4 - Non-ST elevation (NSTEMI) myocardial infarction (2) Hypertensive emergency: Status: Acute Code(s): I16.1 - Hypertensive emergency (3) ICD (implantable cardioverter-defibrillator) in place: Status: Acute Code(s): Z95.810 - Presence of automatic (implantable) cardiac defibrillator Medications at Discharge Home Medications aspirin 81 mg tablet,delayed release 81 mg PO BREAKFAST 30 days #30 tabs 10/03/23 atorvastatin 80 mg tablet 80 mg PO QHS 30 days #30 tabs 10/03/23 carvedilol 25 mg tablet 25 mg PO BID BP 10/03/23 lisinopril 10 mg tablet 10 mg PO DAILY 30 days #30 tabs 10/03/23 potassium chloride 20 mEq tablet,extended release 20 meq PO DAILY #14 tabs 10/03/23 spironolactone 25 mg tablet 25 mg PO DAILY BP/fluid retention 10/03/23 Hospital Course Operations None Procedures Cardiac catheterization Summary of Care Provided Minutes Spent on Discharge: 36 Hospital Course: Per HPI: The patient is a 48 y/o M w/ PMHx: EtOH abuse (3 or more EtOH drinks daily, often hard liquor drinks) with chronic LFT elevations, LIZ noncompliant with PAP therapy, PAF, Asthma/COPD, HTN, HLD, CAD s/p PCI x 1 per patient report following with cardiology in the [facility] Dr. Oliver, Presumed HFrEF s/p AICD placement/suspected Ischemic cardiomyopathy but uncertain, Crohn's disease, Tobacco use who presents to the [facility] ED on 10/03/23 with history of significant noncompliance with his medications purposefully weaning himself off various port ions of his regimen with ongoing intermittent left sided chest discomfort over the last week sometimes lasting hours associate with nausea without emesis as well as dyspnea and diaphoresis recently resumed smoking as he had previously quit also admitting that he has not been taking his aspirin therapy or statin therapy but on day of presentation he started having dyspepsia as well as hiccups in addition to ongoing chest discomfort with episodes of nausea, dyspnea and diaphoresis prompting eventual ED evaluation. Patient describes the discomfort in his chest as a burning aching sensation to the left chest. He denies any radiation to his arm or neck region. He does not have a current PCP but would like to establish thus options discussed. He is interested in help with EtOH abuse. He notes willingness to restart medications if felt necessary. He notes his pain when it has been at its worst has been 5-6 out of 10 in severity, currently down to 2-3 out of 10 in severity upon current evaluation. Workup in the ED included T98.2, heart rate 110, BP 190/112, respiratory rate 18, 95% on room air with most recent repeat vitals heart rate 98, BP 150/93, respiratory rate 18, 98% on room air, CBC with WBC 5.9, hemoglobin 14.4, platelet 145 without marked shift, unremarkable coags aside D-dimer 1.96, BMP with sodium 135, potassium 3.0, glucose 108, initial troponin 586, chest x-ray with no acute cardiopulmonary findings with implanted defibrillator, CTPA with no acute PE, aortic aneurysm or dissection, no acute cardiopulmonary pathology, implanted defibrillator present, fatty liver, EKG with sinus tachycardia with no acute evidence of ischemia. In the ED patient ministered full-strength aspirin therapy, heparin drip initiated with bolus, alprazolam 0.5 mg p.o. x 1, potassium chloride 40 mill equivalent p.o. x 1 as well as hydralazine 10 mg IV x 1 administered. Discussed with ED and they note intention to review case with Cardiology Dr. Klein given presentation with NSTEMI and underlying history with need for cardiac catheterization consideration. Hospital Course: 1. Non-STEMI secondary to hypertensive emergency/chronic systolic CHF? 48-year-old male was a heavy drinker presented to the hospital with chest pain and hypertensive emergency. Cardiology was consulted and took him to the cardiac [employer] which demonstrated that his RCA was completely occluded, his prior LAD stent was patent. He was not compliant with the medications because he did not feel like he needed them. He was restarted on his blood pressure medication including his Aldactone and he was also added onto lisinopril and Coreg. He was also started on high-dose statin therapy and was to be discharged yesterday after his heart cath however his blood pressure spiked and he developed lightheadedness and dizziness and there is some concern that he was going into withdrawal so he was kept overnight. This morning he was feeling much better and his CIWA scores were 4 and after his morning blood pressure medications his blood pressure was much more stable. I discussed with him the possibility for discharge today he expressed understanding the risk benefits of going home and would like to go home today. His electrolytes were replaced with his phosphorus and magnesium and he was discharged on potassium supplementation for 2 weeks. I also asked nursing staff to help him find a primary care physician prior to discharge. 2. Alcohol abuse chronic medical condition which complicates his care. I just discussed with him the need to quit drinking and if he needs to detox he can stay otherwise needs to find therapy as an outpatient. Physical Exam Narrative General: Alert, Oriented x3, Cooperative, No apparent distress HEENT: Atraumatic, PERRLA, EOMI, Normocephalic Oral: Moist Mucosa Neck: Supple, No JVD Lungs: Diminished, Normal air movement, No rhonchi, No wheeze, No rales Cardiovascular: Regular rate, Regular Rhythm, Normal S1, Normal S2, No murmurs Abdomen: Soft, Non Tender, Non-Distended, No Hepato-splenomegaly Extremities: No edema, Capillary Refill Less than 3 Seconds Skin: No rashes, No breakdown Musculoskeletal: No Tenderness to Palpation of Joints or Extremities Neurological: No focal neurological deficits, Motor Exam 5/5 strength throughout, Sensory exam intact to light touch and pain Psych/Mental Status: Normal Affect, Appropriate Medical Records Data Medical Nutrition Assessment Dietitian: Malnutrition Criteria Met Start: 10/03/23 13:48 Freq: Status: Active Protocol: Document 10/03/23 13:48 RMA (Rec: 10/03/23 13:48 RMA [id number]) Nutrition Malnutrition Evidence of Malnutrition Exists Yes Malnutrition (severe): Chronic,Social/Behavioral/ Environmental Evidenced By Suboptimal Energy Intake ( Severe),Weight Loss (Severe) Clinical Problem Chronic Disease or Condition Related Malnutrition Etiology 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 Will add 120mL ensure plus HP 3 times per day w/ medpass. Will add extra 1 oz lean meat/ protein Q meal tray. Fluid restriction as needed per physician. Adjust ONS as needed to optimize PO and prevent further weight loss. Weight / BMI Weight Weight: 150 lb 9.211 oz Body Mass Index (BMI) 24.3 ABG / Lab / Microbiology Data 10/03/23 01:15 10/04/23 07:10 Laboratory: Laboratory Results - last 24 hr 10/04/23 07:10: Sodium 137, Potassium 3.2 L, Chloride 106, Carbon Dioxide 23.0, Anion Gap 8, BUN 10, Creatinine 0.87, Estim Creat Clear Calc 92.69, Est GFR (MDRD) Af Amer 120, Est GFR (MDRD) Non-Af 99, BUN/Creatinine Ratio 11.5, Glucose 114 H, Calcium 8.8, Phosphorus 2.0 L, Magnesium 1.7 D/C Instructions Discharge Diet: Low fat / Low cholesterol Call your doctor if you observe: Fever of 101 or Higher, Shortness of breath, Dizziness, Fainting spells, Swelling in the ankles, Chest pain and Increased palpitations (irregular heartbeat) Meaningful Use Info Meaningful Use Meaningful Use Diagnoses (Choose all that apply): None applicable Ischemic Stroke Statin Dosing Therapy Reference: STATIN DOSE THERAPY REFERENCE: * Patients > 75 years receive moderate or high dose statin therapy. * Patients 75 years or YOUNGER should receive HIGH intensity statin dose unless contraindicated. You will be required to document reason for non-treatment if statin daily dose does not meet guidelines. HIGH DOSE STATIN THERAPY DAILY Atorvastatin > than or = to 40 mg Rosuvastatin > than or = to 20 mg Amlodipine + Atorvastatin > than or = to 2.5/40 mg Ezetimibe + Simvastatin 10/80 mg Simvastatin 80mg Discharge Plan Admission Admit Date/Time: 10/03/23 04:22 Attending Provider: Peyman Garcia Primary Care Provider: Care Physician,No Primary Consulting Providers: Willi Klein Autumn L Discharge Orders/Prescriptions Prescriptions: New atorvastatin 80 mg Tablet 80 mg PO QHS 30 Days Qty: 30 0RF aspirin 81 mg Tablet,Delayed Release (Dr/Ec) 81 mg PO BREAKFAST 30 Days Qty: 30 0RF lisinopril 10 mg Tablet 10 mg PO DAILY 30 Days Qty: 30 0RF potassium chloride 20 mEq tablet extended release 20 meq PO DAILY Qty: 14 0RF Continued carvedilol 25 mg tablet 25 mg PO BID spironolactone 25 mg tablet 25 mg PO DAILY Referrals / Follow Up: [facility] [Provider Group] - 10/07/23 1:00 pm (This appt will be with Ana the Pacer Nurse. ) Danyel Klein MD [Med Staff - Active Staff] - Within 1 Month Care Physician,No Primary [Primary Care Provider] - Disposition Discharge Orders: Discharge Patient (Routine); Ordered 10/04/23 Ordered By: Dr. Peyman Garcia Charges/Coding Visit Charges Inpatient E&M: 87568 Disch Hosp >30min
== END 2023-10-04 18:21 | disposition home or self-care (01) | DRG 280 ==
LOC: ED 02:29 → PCU 05:12
PROVIDERS: Admitting Provider Family Medicine; Emergency Provider Emergency Medicine; Visit Provider Family Medicine
DX: I21.4 Non-ST elevation (NSTEMI) myocardial infarction (principal); E43 Unspecified severe protein-calorie malnutrition; E87.1 Hypo-osmolality and hyponatremia; I50.22 Chronic systolic (congestive) heart failure; F10.239 Alcohol dependence with withdrawal, unspecified; K50.90 Crohn's disease, unspecified, without complications; I16.1 Hypertensive emergency; D69.6 Thrombocytopenia, unspecified; I11.0 Hypertensive heart disease with heart failure; J44.9 Chronic obstructive pulmonary disease, unspecified; E87.6 Hypokalemia; F17.210 Nicotine dependence, cigarettes, uncomplicated; I25.10 Atherosclerotic heart disease of native coronary artery without angina pectoris; E78.5 Hyperlipidemia, unspecified; I25.2 Old myocardial infarction; G47.33 Obstructive sleep apnea (adult) (pediatric); Z95.810 Presence of automatic (implantable) cardiac defibrillator; R06.6 Hiccough; Z95.5 Presence of coronary angioplasty implant and graft; Z68.24 Body mass index [BMI] 24.0-24.9, adult; Z91.148 Patient's other noncompliance with medication regimen for other reason; Y90.9 Presence of alcohol in blood, level not specified
CPT/HCPCS: 36415; 71045; 71275; 80048; 80061; 80076; 83735; 84100; 84484; 85025; 85379; 85610; 85730; 93005; 93306; 93458; 94640; 94668; 97802; 99152; 99153; 99285; J7030; J7050; Q9957; Q9967; A4216; C1769; C1894; C8929

== ENCOUNTER 2023-12-18 17:58 | Inpatient (IN) | payer MEDICARE, MEDICAID, SELFPAY ==
[2023-12-18] VITALS (19 sets, daily range): BP systolic 62–108; BP diastolic 40–80; PULSE 82–114; RESP 14–26; TEMP 36.1–37.5; O2SAT 92–100; BMI 25.4; BMI 24.3
--- NOTE | 2023-12-18 18:14 | EKG12_ITS ---
Test Reason : Blood Pressure : / mmHG Vent. Rate : 124 BPM Atrial Rate : 000 BPM P-R Int : 000 ms QRS Dur : 122 ms QT Int : 372 ms P-R-T Axes : 000 -48 136 degrees QTc Int : 534 ms Atrial fibrillation with rapid ventricular response Left anterior fascicular block Minimal voltage criteria for LVH, may be normal variant ( Jose Armando product ) T wave abnormality, consider lateral ischemia Abnormal ECG Confirmed by JACQUELINE ROGERS, LALO ([id number]), editor sound LANETTE MACIAS ([id number]) on 12/20/2023 8:29:45 AM Referred By: Confirmed By:LALO PHILLIPS MD
--- NOTE | 2023-12-18 18:15 | EX.ED.DYSGE1 ---
HPI History of Present Illness Chief Complaint: Weakness Detail of Chief Complaint: Generalized weakness and black stools Informant: patient and spouse/S.O. Narrative Narrative: Patient presents to the emergency department complaint of generalized weakness and black stools. Patient states that he has had black stools x 3 to 4 days. He has history of colitis. Patient also abuses alcohol. Normally drinks whiskey. Patient also with history of A-fib and has an ICD in place. He denies chest pain or abdominal pain. He denies vomiting blood. He does have history of a bleeding ulcer. [facility] Medical History (Updated 12/18/23 @ 20:[address] Tolu Marion, DO) Alcohol abuse Anxiety PAF (paroxysmal atrial fibrillation) Tobacco use HLD (hyperlipidemia) Crohn's disease Sleep apnea COPD (chronic obstructive pulmonary disease) Asthma Congestive heart failure (CHF) Hypertension ICD (implantable cardioverter-defibrillator) in place Heart attack Home Medications ?Medication ?Instructions ?Recorded ?Last Taken ?Type aspirin 81 mg tablet,delayed 81 mg PO BREAKFAST 30 days #30 tabs 10/03/23 Unknown Rx release atorvastatin 80 mg tablet 80 mg PO QHS 30 days #30 tabs 10/03/23 Unknown Rx carvedilol 25 mg tablet 25 mg PO BID BP 10/03/23 Unknown History lisinopril 10 mg tablet 10 mg PO DAILY 30 days #30 tabs 10/03/23 Unknown Rx potassium chloride 20 mEq 20 meq PO DAILY #14 tabs 10/03/23 Unknown Rx tablet,extended release spironolactone 25 mg tablet 25 mg PO DAILY BP/fluid retention 10/03/23 Unknown History Allergy/AdvReac Type Severity Reaction Status Date / Time bee venom protein (honey bee) Allergy Mild Swelling Verified 10/03/23 01:16 Family History Mother Hypertension Heart disease Father Hypertension CAD (coronary artery disease) Heart disease Myocardial infarction Surgical History S/P implantation of automatic cardioverter/defibrillator (AICD) Hx of heart artery stent Social History household members: none number of children: 1 current occupational status: disabled pets and animals: No Smoking Status: Current every day smoker tobacco type: cigarettes alcohol intake: current alcohol intake frequency: 3 or more drinks per day details: Whiskey 3-4 shots per day last drink october 01 substance use type: does not use ROS ROS ED Review of Systems ROS Unobtainable: other Constitutional Constitutional ED: Reports lethargy; Denies chills, fever(s), sweats or weight loss Eyes Eyes: Denies blurry vision, change in vision or diplopia ENT ENT ED: Denies rhinorrhea or sore throat Cardiovascular Cardiovascular: Denies chest pain, orthopnea or racing heartbeat Respiratory/Chest Respiratory/Chest: Denies cough, dyspnea, dyspnea on exertion, orthopnea or sputum Gastrointestinal Gastrointestinal: Reports other Details: Black stool ; Denies abdominal pain, diarrhea, nausea or vomiting Genitourinary Genitourinary ED: Denies dysuria, hematuria or urinary frequency Musculoskeletal Musculoskeletal: Denies arthralgias, back pain, myalgias or neck pain Integumentary Denies abscess, Abrasions or rash Neurologic Neurologic: Reports weakness; Denies headache(s) Psychiatric Psychiatric: Denies anxiety, depression or suicidal thoughts Endocrine Endocrinology: Denies polydipsia, polyphagia or polyuria Hematologic/Lymphatic Hematologic/Lymphatic: Denies easy bleeding, easy bruising or lymphadenopathy Allergic/Immunologic Allergic/Immunologic ED: Denies mouth swelling, tongue swelling or urticaria EXAM Physical Exam Narrative Exam Narrative: Patient smells of alcohol. Speech slightly slurred. Const Vital Signs: 12/18/23 18:07 12/18/23 18:19 12/18/23 19:10 Temperature 99.5 F H 99.1 F 99.1 F Temperature Source Rectal Oral Axillary Pulse Rate 114 H 103 H 99 Respiratory Rate 16 16 16 Blood Pressure 85/54 L 64/40 L 62/43 L Blood Pressure Mean 64 48 49 Pulse Ox 92 96 97 Oxygen Delivery Method Room Air Nasal Cannula Nasal Cannula Oxygen Flow Rate (L/min) 6 6 12/18/23 19:19 12/18/23 19:25 12/18/23 19:52 Temperature 99.3 F H 99.2 F H 99 F Temperature Source Axillary Axillary Axillary Pulse Rate 98 88 101 H Respiratory Rate 16 22 H 25 H Blood Pressure 88/74 L 88/74 L 99/65 Blood Pressure Mean 78 78 76 Pulse Ox 99 93 96 Oxygen Delivery Method Nasal Cannula Nasal Cannula Nasal Cannula Oxygen Flow Rate (L/min) 6 6 6 12/18/23 20:00 12/18/23 20:00 12/18/23 20:07 Temperature 99.1 F 99.1 F 99.1 F Temperature Source Oral Oral Axillary Pulse Rate 90 84 102 H Respiratory Rate 18 25 H 22 H Blood Pressure 98/68 98/68 90/60 Blood Pressure Mean 78 78 70 Pulse Ox 96 98 96 Oxygen Delivery Method Nasal Cannula Nasal Cannula Nasal Cannula Oxygen Flow Rate (L/min) 6 6 6 12/18/23 20:15 12/18/23 20:30 12/18/23 20:45 Temperature 98.8 F 99 F 99 F Temperature Source Axillary Oral Axillary Pulse Rate 107 H 109 H 110 H Respiratory Rate 23 H 22 H 18 Blood Pressure 105/80 82/70 L 107/69 Blood Pressure Mean 88 74 81 Pulse Ox 100 98 100 Oxygen Delivery Method Nasal Cannula Nasal Cannula Room Air Oxygen Flow Rate (L/min) 6 6 12/18/23 21:00 Temperature 98.6 F Temperature Source Axillary Pulse Rate 111 H Respiratory Rate 18 Blood Pressure 85/66 L Blood Pressure Mean 72 Pulse Ox 99 Oxygen Delivery Method Nasal Cannula Oxygen Flow Rate (L/min) 6 Positive well nourished and well developed General Appearance ED: well developed and NAD HEENT Reports TM's clear and moist mucous membranes normocephalic and atraumatic; Negative for trauma or tenderness Tympanic Membrane ED: Yes TM's clear Eyes PERRL and EOMs intact bilaterally General Eye ED: Negative for pale conjunctiva or scleral icterus Neck no lymphadenopathy, supple and no JVD General: Negative for tenderness Chest Wall inspection of chest normal and palpation of chest normal Chest: Negative for tenderness Resp normal respiratory effort and clear to auscultation bilaterally Effort and Inspection: Negative for respiratory distress or pain with movement Auscultation: Negative for rhonchi, wheezes or diminished lung sounds Cardio regular rate, regular rhythm, S1 normal heart sound, S2 normal heart sound and no murmurs Peripheral Pulses: pulses 2+ throughout GI normal to inspection, nondistended, normoactive bowel sounds, soft to palpation, non-tender, non-distended and no masses GI Narrative: Rectal exam-patient has black tarry stool on exam Back/Spine no CVA tenderness and no thoracic nor lumbar tenderness Extremity normal to inspection General Extremety ED: Negative for edema General Extremity: Negative for edema Neuro oriented x3, CN's II-XII intact bilaterally, no sensory deficits noted and gait normal Sensorium / Orientation: awake, alert, oriented to person, oriented to place and oriented to time Motor Exam: strength 5/5 throughout and strength abnormal Psych mental status grossly normal Skin no rashes or lesions noted and no wounds MDM MDM MDM Narrative Medical decision making narrative: Patient presents to the emergency department with black stool and generalized weakness. History of alcohol abuse. IV line established. Patient placed on a surveillance system monitor. Type and screen ordered. 2 IVs ordered. Patient was given a liter of ascitic fluid bolus. He was typed and screened. Will obtain lab workup. Will start on Protonix IV. CBC with differential white count 12.0 with hemoglobin 10.9 and platelet count of of 80. Chemistries taken showed a low sodium of 127 with potassium of 3.2 and chloride of 61 with CO2 of 21. BUN was 89 creatinine 3.23. LFTs were elevated with AST of 463 and ALT of 125 and alk phos of 193. Troponin was elevated at 223. EKG showed a atrial fibrillation with a rate of [address] changes. I did discuss case with Dr. White who asked that I start patient on octreotide and Rocephin and get a CTA of the abdomen pelvis which was done. Patient had a fluid-filled stomach and no other significant findings. Despite fluids and 2 units of trauma blood patient initially had a bump in his blood pressure up to 100 systolic but then started to trend back down into the 80s systolic. Discussed case with hospitalist to evaluate patient for admission to the ICU. Discussed case with Dr. White again who will see patient this evening. Patient did have emesis in the emergency department that was bloody. Lab Data Attestation: I reviewed the patient's lab results. Labs: Laboratory Results - last 24 hr 12/18/23 18:20 WBC 12.0 H RBC 2.82 L Hgb 10.9 L Hct 30.5 L MCV 108.2 H MCH 38.7 H MCHC 35.7 RDW Std Deviation 60.4 H RDW Coeff of Amanda 15.1 H Plt Count 80 L MPV 12.3 H Immature Gran % (Auto) 0.700 Neut % (Auto) 85.5 H Lymph % (Auto) 7.5 L [place] % (Auto) 6.2 Eos % (Auto) 0.0 Baso % (Auto) 0.1 Absolute Neuts (auto) 10.3 H Absolute Lymphs (auto) 0.90 Nucleated RBC % 0.6 Differential Comment SCANNED Platelet Estimate SLT DEC Sodium 127 L Potassium 3.2 L Chloride 81 L Carbon Dioxide 21.0 Anion Gap 25 H BUN 89 H Creatinine 3.23 H Estim Creat Clear Calc 24.96 Est GFR (MDRD) Af Amer 26 L Est GFR (MDRD) Non-Af 22 L BUN/Creatinine Ratio 27.6 H Glucose 199 H Lactic Acid 7.4 H* Calcium 6.6 L Total Bilirubin 2.40 H AST 463 H ALT 125 H Alkaline Phosphatase 193 H Troponin I High Sens 223 H* Total Protein 5.6 L Albumin 2.6 L Globulin 3.0 Albumin/Globulin Ratio 0.9 Ethyl Alcohol 115.0 Blood Type A POSITIVE Antibody Screen NEGATIVE Crossmatch See Detail Radiography Diagnostic Testing: Clinical Impression(s) from Imaging Studies Abdomen/Pelvis CTA 12/18/23 18:49 IMPRESSION: 1. Minimal calcification of distal abdominal aorta however no evidence of aneurysmal dilatation dissection or vascular occlusion. 2. Normal appearance of the celiac SMA and JOHN. Normal appearance of the renal arteries bilaterally. 3. No masses bowel obstruction abscess free fluid or free air. There is mild wall thickening of the ascending colon and transverse colon. Mild colitis is a consideration. No masses or areas of abnormal enhancement. 4. Hepatic steatosis without hepatic masses. 5. No evidence cholelithiasis or duct dilatation. 6. No evidence of renal calcifications or obstructive uropathy. Electronically Signed: Ayo Ross MD at 20:30 EDT , Chest X-Ray 12/18/23 19:50 IMPRESSION: 1. No evidence of acute cardiac pulmonary process. 2. Subcutaneous before AICD system/defibrillator without change. Electronically Signed: Ayo Ross MD at 20:20 EDT , EKG Initial EKG: Attestation: I personally reviewed and interpreted this EKG as follows: Comments: Atrial fibrillation with rate of [address] changes Critical Care Time Critical care time (excluding procedures): 30-74 minutes, Including time spent:, Discussing w/Patient &/or Family/Post Anesthesia Room Nurse, Discussing w/Consultants, Arranging Admission or Transfer, Performing Direct Patient Care at Bedside and - (35 minutes) Discharge Plan Dx/Rx/DC Orders Clinical Impression: Acute upper gastrointestinal bleeding, Acute hypotension, TEO (acute kidney injury), Acute hyponatremia, Alcohol abuse Disposition Disposition: Acute Care Hospital [facility]
[2023-12-18] MEDS: 0.9% Normal Saline (1000mL) 1,000 ML 999 ML IV ×2 (18:39→19:00)
[2023-12-18 18:42] LABS: Absolute Neutrophil Count 10.3 X10^3/uL (2.0-7.7); Basophil# 0.01 X10^3/uL; Basophil% 0.1 % (0-1); Hematocrit 30.5 % (40-54); Hemoglobin 10.9 g/dL (13.0-16.5); Lymphocyte % 7.5 % (19-41); Mean Corp Hgb Conc 35.7 g/dL (32-36); Mean Corpuscular Hgb 38.7 pg (27.0-32.0); Mean Corpuscular Volume 108.2 fL (80-94); Mean Platelet Vol. 12.3 fl (6.2-12.0); Monocyte# 0.74 X10^3/uL; Monocyte% 6.2 % (0-10); NRBC Flagged by Analyzer 0.6 % (0-5); Neutrophil # 10.29 X10^3/uL (2.7-7.7); Neutrophil % 85.5 % (47-70); POSITIVE COUNT YES; Platelet Count 80 K/mm3 (150-450); RBC Distribution Width CV 15.1 % (11.6-14.6); RBC Distribution Width SD 60.4 fl (35.1-43.9); Red Blood Count 2.82 M/mm3 (4.6-6.2)
--- NOTE | 2023-12-18 18:49 | CT_ITS ---
INDICATION: upper gi bleed: Additional history: Weakness,Black Stools,Elevated Wbc,Jaundice Hx:Afib-Has Icd,Crohn''s,Colitis,Hld,Htn EXAMINATION: CTA OF THE ABDOMEN AND PELVIS WITH IV CONTRAST CTA Abdomen and Pelvis WO/W Contrast Injection TECHNIQUE: Helically acquired images were obtained of the abdomen and pelvis following IV contrast. A dose lowering technique was used using automated exposure control, adjustment of mA and/or kV according to the patient''s size and the use of iterative reconstruction technique Postcontrast imaging, planar and 3-dimensional reconstructions obtained. IV Contrast dosage and agent: 100 mL Isovue-370 Oral contrast: None. Radiation Dose (provided by facility) CTDIvol (32.48 ) mGy, DLP ( 880.11) mGy-cm COMPARISON: : No relevant prior comparison study available FINDINGS: CTA ANGIOGRAM: ABDOMINAL AORTA: The abdominal aorta has normal size and configuration. No areas of bulky plaque, dissection, or aneurysmal dilatation. Minimal calcification in the distal abdominal aorta. VISCERAL VESSELS: There is normal orientation of the origin of the celiac and SMA without focal stenosis or occlusion. Normal patency of the visualized proximal JOHN. RENAL ARTERIES: No stenosis or occlusion bilaterally. Normal patency of the renal arteries bilaterally. ILIAC VESSELS: There is normal patency of the iliac vessels bilaterally. No aneurysmal dilatation or dissection noted. No filling defects noted. No evidence of occlusion. LOWER EXTREMITIES: There is normal patency of the proximal RIGHT and LEFT femoral arterial tree including the visualized common femoral artery, deep femoral artery, and the proximal SFA. CT ABDOMEN AND PELVIS: LOWER THORAX: Lungs are clear. Coronary vascular calcifications are present. HEPATOBILIARY: Liver: The liver is homogeneous and shows no evidence of focal lesion. Diffusely diminished density throughout the liver consistent with hepatic steatosis. Gallbladder: The gallbladder is unremarkable. Pancreas: Pancreas is normal size configuration and density. No mass is noted. Spleen: The spleen is homogeneous and normal in size. . BOWEL: Stomach: Stomach is fluid-filled and moderately distended. No mass is noted. Bowel: Large small bowel loops have normal configuration. Fluid-filled minimally distended small bowel, pattern is nonspecific. Mild wall thickening involving the ascending colon and transverse colon. Appendix: The appendix is not positively identified.: GENITOURINARY: Adrenals: Both adrenal glands are normal in size, no masses or abnormal enhancement noted.. Kidneys: Kidneys appear symmetric in size. No calcifications are seen in the collecting system. There is no hydronephrosis or surrounding fluid. Bladder: Normal Pelvic organs: The visualized pelvic organs are normal in size and configuration. No masses or adenopathy noted. RETROPERITONEUM: No evidence retroperitoneal masses or adenopathy. Aorta as detailed above. PERITONEAL CAVITY: ANTERIOR ABDOMINAL WALL: Normal, no hernia identified. BONES AND SOFT TISSUES: The skeleton shows no evidence for fractures or destructive lesions. OTHER: None CT/CTA Abd/Pelvis W/WO Contrast IMPRESSION: 1. Minimal calcification of distal abdominal aorta however no evidence of aneurysmal dilatation dissection or vascular occlusion. 2. Normal appearance of the celiac SMA and JOHN. Normal appearance of the renal arteries bilaterally. 3. No masses bowel obstruction abscess free fluid or free air. There is mild wall thickening of the ascending colon and transverse colon. Mild colitis is a consideration. No masses or areas of abnormal enhancement. 4. Hepatic steatosis without hepatic masses. 5. No evidence cholelithiasis or duct dilatation. 6. No evidence of renal calcifications or obstructive uropathy. Electronically Signed: Ayo Ross MD at 20:30 EDT ,
[2023-12-18] MEDS: Pantoprazole Sodium 80 MG in 0.9% Normal Saline (100mL Bag) 80 ML 10 MG CONT INF (18:58)
[2023-12-18 18:59] LABS: Differential Indicated SCAN CRITERIA MET
[2023-12-18] MEDS: Octreotide 0.1 MG/ML ML IV (19:08)
[2023-12-18] MEDS: Ceftriaxone 1 GM/50 ML BAG IV (19:08)
[2023-12-18 19:09] LABS: Differential Comment SCANNED; Platelet Estimate SLT DEC (ADEQ)
[2023-12-18 19:10] LABS: ALB/GLOB Ratio 0.9 RATIO (0.9-2.4); AST(SGOT) 463 U/L (15-37); Alanine Aminotransfer ALT/SGPT 125 U/L (16-61); Albumin, Serum 2.6 g/dL (3.2-5.0); Alkaline Phosphatase 193 U/L (45-117); Anion Gap 25 (5-15); BUN 89 mg/dL (7-18); BUN/Creat Ratio 27.6 RATIO (10-20); Calcium,Total 6.6 mg/dL (8.5-10.1); Chloride 81 mmol/L (98-107); Creatinine, Serum 3.23 mg/dL (0.70-1.30); EST Glomerular Filtration Rate 22 mL/min (>60); Est Glom Filt Rate - Afr Amer 26 mL/min (>60); Estimated Creatinine Clearance 24.96 ml/min; Glucose 199 mg/dL (74-106); Lactic Acid 7.4 mmol/L (0.4-1.9); Potassium 3.2 mmol/L (3.5-5.1); Protein, Total 5.6 g/dL (6.4-8.2); Sodium Level 127 mmol/L (136-145); Troponin-I HS 223 pg/mL (3.0-78.0)
--- NOTE | 2023-12-18 19:50 | RAD_ITS ---
INDICATION: weakness EXAMINATION/TECHNIQUE: X-RAY - XR Chest 1 View COMPARISON: 10/03/[address] FINDINGS: LIFE-SUPPORT AND LINES: 1. Subcutaneous AICD system without change.. HEART AND VESSELS: The cardiac silhouette, pulmonary vasculature have normal appearance. No evidence of congestive failure. LUNGS AND PLEURAL SPACES: Lungs are clear. No focal infiltrate, consolidation or effusions. No evidence of pneumothorax. No pulmonary mass is noted. MEDIASTINUM AND HILAR REGIONS: No masses adenopathy noted. No areas of calcification. Visualized upper airway is normal in position. BONY ELEMENTS: Healed RIGHT rib fractures again noted. RAD/Chest 1 View (Portable) IMPRESSION: 1. No evidence of acute cardiac pulmonary process. 2. Subcutaneous before AICD system/defibrillator without change. Electronically Signed: Ayo Ross MD at 20:20 EDT ,
--- NOTE | 2023-12-18 20:46 | PCM.HP.STD ---
[facility] - General General Date of Admission: 12/18/23 Date of Service: 12/18/23 Chief Complaint: Black Tarry Stools for 3-4 Days. HPI Narrative KARTHIK ALMAZAN, is a 48 M with a past medical history of essential hypertension, hyperlipidemia, chronic alcohol abuse; with ~3-4 drinks of whiskey daily, CAD; s/p NSTEMI with history of LAD stent and 100% RCA occlusion noted on [facility] (09/2023), PAF; on BASA (not on anticoagulation), history of chronic diastolic CHF; with preserved LVEF 50% (09/2023), history of ischemic cardiomyopathy, history of AICD, history of tobacco abuse; with subsequent asthma/COPD, LIZ; non-compliant with CPAP, Crohn's disease, generalized anxiety, OA and GERD; with history of PUD who presents to [facility] ER complaining of dark, tarry stools. Mr. Almazan reports his symptoms began ~3-4 days prior to admission when he noticed his stools turned black. He apparently did not come in sooner because he has a history of colitis and he thought it would pass. Unfortunately, he has continued to have black stools with increasing fatigue and malaise so he decided to come in for further evaluation and treatment. He denies vomiting, fever, chills, constipation, chest pain or SOB. In the ER he was diagnosed with UGIB causing Melanotic Stools likely due to recurrent PUD and/or possible bleeding from Esophageal Varices in the setting of Chronic EtOH Abuse; with a STEVEN 115 mg/dL, T. bilirubin 2.4 mg/dL, AST 463 U/L, ALT 125 U/L & alkaline phosphatase 193 U/L present on admission complicated by Thrombocytopenia of 80K with a BUN of 89 mg/dL (up from his baseline of ~10 mg/dL last admission) present on admission with Lactic Acidosis of 7.4 mmol/L and Leukocytosis of 12K present on admission consistent with evolving Hemorrhagic Shock with blood pressure of 85/66 mmHg in spite of getting 2L bolus NS and one unit of trauma blood in ER with a hemoglobin of 10.9 g/dL present on admission compounded by elevated troponin of 223 pg/mL present on admission likely due to Demand Ischemia compounded by ARF; evidenced by elevated serum creatinine of 3.23 mg/dL present on admission (up from his baseline serum creatinine of 0.87 mg/dL last admission) with Hyponatremia of 127 mmol/L, Hypokalemia of 3.2 mmol/L and Severe Hypocalcemia of 6.6 mg/dL present on admission and he was then admitted to the ICU for ongoing care for a stay that is expected to extend beyond 2 midnights. Finally, I spoke with the dedicated intermodal truck driver on-call about this patient with help greatly appreciated! [facility] Medical History Alcohol abuse Anxiety PAF (paroxysmal atrial fibrillation) Tobacco use HLD (hyperlipidemia) Crohn's disease Sleep apnea COPD (chronic obstructive pulmonary disease) Asthma Congestive heart failure (CHF) Hypertension ICD (implantable cardioverter-defibrillator) in place Heart attack Home Medications ?Medication ?Instructions ?Recorded ?Last Taken ?Type aspirin 81 mg tablet,delayed 81 mg PO BREAKFAST 30 days #30 tabs 10/03/23 Unknown Rx release atorvastatin 80 mg tablet 80 mg PO QHS 30 days #30 tabs 10/03/23 Unknown Rx carvedilol 25 mg tablet 25 mg PO BID BP 10/03/23 Unknown History lisinopril 10 mg tablet 10 mg PO DAILY 30 days #30 tabs 10/03/23 Unknown Rx potassium chloride 20 mEq 20 meq PO DAILY #14 tabs 10/03/23 Unknown Rx tablet,extended release spironolactone 25 mg tablet 25 mg PO DAILY BP/fluid retention 10/03/23 Unknown History Allergy/AdvReac Type Severity Reaction Status Date / Time bee venom protein (honey bee) Allergy Mild Swelling Verified 10/03/23 01:16 Family History Mother Hypertension Heart disease Father Hypertension CAD (coronary artery disease) Heart disease Myocardial infarction Surgical History S/P implantation of automatic cardioverter/defibrillator (AICD) Hx of heart artery stent Social History household members: none number of children: 1 current occupational status: disabled pets and animals: No Smoking Status: Current every day smoker tobacco type: cigarettes alcohol intake: current alcohol intake frequency: 3 or more drinks per day details: Whiskey 3-4 shots per day last drink october 01 substance use type: does not use ROS ROS Narrative Full ROS was not possible as patient was acutely ill and had just been extubated. Vital Signs Vital Signs Vital Signs: 12/18/23 18:07 12/18/23 18:19 12/18/23 19:10 Temperature 99.5 F H 99.1 F 99.1 F Temperature Source Rectal Oral Axillary Pulse Rate 114 H 103 H 99 Respiratory Rate 16 16 16 Blood Pressure 85/54 L 64/40 L 62/43 L Blood Pressure Mean 64 48 49 Pulse Ox 92 96 97 Oxygen Delivery Method Room Air Nasal Cannula Nasal Cannula Oxygen Flow Rate (L/min) 6 6 12/18/23 19:19 12/18/23 19:25 12/18/23 19:52 Temperature 99.3 F H 99.2 F H 99 F Temperature Source Axillary Axillary Axillary Pulse Rate 98 88 101 H Respiratory Rate 16 22 H 25 H Blood Pressure 88/74 L 88/74 L 99/65 Blood Pressure Mean 78 78 76 Pulse Ox 99 93 96 Oxygen Delivery Method Nasal Cannula Nasal Cannula Nasal Cannula Oxygen Flow Rate (L/min) 6 6 6 12/18/23 20:00 12/18/23 20:00 12/18/23 20:07 Temperature 99.1 F 99.1 F 99.1 F Temperature Source Oral Oral Axillary Pulse Rate 90 84 102 H Respiratory Rate 18 25 H 22 H Blood Pressure 98/68 98/68 90/60 Blood Pressure Mean 78 78 70 Pulse Ox 96 98 96 Oxygen Delivery Method Nasal Cannula Nasal Cannula Nasal Cannula Oxygen Flow Rate (L/min) 6 6 6 12/18/23 20:15 12/18/23 20:30 Temperature 98.8 F 99 F Temperature Source Axillary Oral Pulse Rate 107 H 109 H Respiratory Rate 23 H 22 H Blood Pressure 105/80 82/70 L Blood Pressure Mean 88 74 Pulse Ox 100 98 Oxygen Delivery Method Nasal Cannula Nasal Cannula Oxygen Flow Rate (L/min) 6 6 Weight Weight: 157 lb 13.616 oz Body Mass Index (BMI) 25.4 Physical Exam Const alert, oriented x3, no apparent distress and average body habitus General Appearance: cooperative Orientation / Consciousness: lethargic HEENT normocephalic, head/scalp atraumatic, hearing grossly normal bilaterally and moist oral mucous membranes Eyes PERRL and EOMs intact bilaterally Neck no lymphadenopathy and supple Resp normal respiratory effort, no retractions, no use of accessory muscles and clear to auscultation bilaterally Cardio regular rate and regular rhythm GI normal to inspection, nondistended, normoactive bowel sounds, soft to palpation, non-tender and non-distended Extremity normal to inspection, full ROM and no clubbing, cyanosis or edema Skin Skin Narrative: Patient has no evidece Neuro oriented x3, CN's II-XII intact bilaterally, moves all extremities and no focal motor deficits Sensorium / Orientation: awake, alert, oriented to person, oriented to place and oriented to time Speech: speech normal Psych affect normal Results Medical Records Data Attestation: I reviewed the patient's medical records Lab / Micro Data Attestation: I reviewed the patient's lab results. 12/19/23 05:40 12/19/23 05:40 Labs: Laboratory Results - last 24 hr 12/18/23 18:20: WBC 12.0 H, RBC 2.82 L, Hgb 10.9 L, Hct 30.5 L, MCV 108.2 H, MCH 38.7 H, MCHC 35.7, RDW Std Deviation 60.4 H, RDW Coeff of Amanda 15.1 H, Plt Count 80 L, MPV 12.3 H, Immature Gran % (Auto) 0.700, Neut % (Auto) 85.5 H, Lymph % (Auto) 7.5 L, [place] % (Auto) 6.2, Eos % (Auto) 0.0, Baso % (Auto) 0.1, Absolute Neuts (auto) 10.3 H, Absolute Lymphs (auto) 0.90, Nucleated RBC % 0.6, Differential Comment SCANNED, Platelet Estimate SLT DEC, Sodium 127 L, Potassium 3.2 L, Chloride 81 L, Carbon Dioxide 21.0, Anion Gap 25 H, BUN 89 H, Creatinine 3.23 H, Estim Creat Clear Calc 24.96, Est GFR (MDRD) Af Amer 26 L, Est GFR (MDRD) Non-Af 22 L, BUN/Creatinine Ratio 27.6 H, Glucose 199 H, Lactic Acid 7.4 H*, Calcium 6.6 L, Total Bilirubin 2.40 H, AST 463 H, ALT 125 H, Alkaline Phosphatase 193 H, Troponin I High Sens 223 H*, Total Protein 5.6 L, Albumin 2.6 L, Globulin 3.0, Albumin/Globulin Ratio 0.9, Ethyl Alcohol 115.0, Blood Type A POSITIVE, Antibody Screen NEGATIVE, Crossmatch See Detail Micro: Microbiology 12/18/23 18:20 Stool Stool Occult Blood (LISANDRA) - Final Occult Blood Positive Imaging Radiology Impression Abdomen/Pelvis CTA 12/18/23 18:49 IMPRESSION: 1. Minimal calcification of distal abdominal aorta however no evidence of aneurysmal dilatation dissection or vascular occlusion. 2. Normal appearance of the celiac SMA and JOHN. Normal appearance of the renal arteries bilaterally. 3. No masses bowel obstruction abscess free fluid or free air. There is mild wall thickening of the ascending colon and transverse colon. Mild colitis is a consideration. No masses or areas of abnormal enhancement. 4. Hepatic steatosis without hepatic masses. 5. No evidence cholelithiasis or duct dilatation. 6. No evidence of renal calcifications or obstructive uropathy. Electronically Signed: Ayo Ross MD at 20:30 EDT , Chest X-Ray 12/18/23 19:50 IMPRESSION: 1. No evidence of acute cardiac pulmonary process. 2. Subcutaneous before AICD system/defibrillator without change. Electronically Signed: Ayo Ross MD at 20:20 EDT , Assessment & Plan Assessment/Plan (1) Gastrointestinal hemorrhage with melena: (2) Adverse drug reaction: QUALIFIERS: Encounter type: initial encounter Qualified Code(s): T50.905A - Adverse effect of unspecified drugs, medicaments and biological substances, initial encounter (3) History of peptic ulcer disease: (4) Alcoholic cirrhosis of liver: QUALIFIERS: Ascites presence: unspecified Qualified Code(s): K70.30 - Alcoholic cirrhosis of liver without ascites (5) Alcoholic hepatitis: QUALIFIERS: Ascites presence: unspecified Qualified Code(s): K70.10 - Alcoholic hepatitis without ascites (6) Alcohol abuse: (7) Elevated troponin: (8) History of non-ST elevation myocardial infarction (NSTEMI): (9) Acute renal failure: QUALIFIERS: Acute renal failure type: unspecified Qualified Code(s): N17.9 - Acute kidney failure, unspecified (10) Hyponatremia: (11) Hypokalemia: (12) Hypocalcemia: PLAN: Plan 1. UGIB causing Melanotic Stools likely due to recurrent PUD and/or possible bleeding from Esophageal Varices in the setting of Chronic EtOH Abuse; with a STEVEN 115 mg/dL, T. bilirubin 2.4 mg/dL, AST 463 U/L, ALT 125 U/L & alkaline phosphatase 193 U/L present on admission complicated by Thrombocytopenia of 80K with a BUN of 89 mg/dL (up from his baseline of ~10 mg/dL last admission) present on admission with Lactic Acidosis of 7.4 mmol/L and Leukocytosis of 12K present on admission consistent with evolving Hemorrhagic Shock with blood pressure of 85/66 mmHg in spite of getting 2L bolus NS and one unit of trauma blood in ER with a hemoglobin of 10.9 g/dL present on admission - Admit to ICU, keep strict NPO and continue Protonix drip begun in the ER. Type & Cross and transfuse for hemoglobin <7 g/dL or if patient beginning to exsanguinate. Bolus LR with continued hypotension and start Levophed drip to keep MAP > 65 mmHg. Serialize lactate and CMP to follow trend. Start IV Phenobarbital 100 mg IV TID in an effort to prevent impending EtOH withdrawal. Avoid Tylenol or other potentially hepatotoxic agents. Avoid NSAID's with active GI Bleeding. Patient will likely be intubated and if so then he will be sedated with Fentanyl and Versed drips. Check ABG to establish baseline. Finally, Dr. White's prompt help, expertise and collegiality are greatly appreciated with patient taken for emergent EGD this evening. 2. Adverse Drug Reaction to unopposed BASA with a known history of PUD likely contributing at least in part to #1 - Hold BASA until further notice and continue Protonix PO long-term once he is weaned off of drip. Will have pharmacy review medications to confirm suspicion of lack of prior GI prophylaxis. 3. Elevated troponin of 223 pg/mL present on admission likely due to Demand Ischemia arising from #1 & #2 in the setting of recently diagnosed CAD; s/p NSTEMI with history of LAD stent and 100% RCA occlusion noted on [facility] (09/2023) with patient on BASA and high-dose Atorvastatin - Serialize troponin. Patient is not a candidate for treatment at this time other than transfusions due to #1. Patient strict NPO at this time with troponin already significantly elevated. 4. ARF; evidenced by elevated serum creatinine of 3.23 mg/dL present on admission (up from his baseline serum creatinine of 0.87 mg/dL last admission) due to #1 - #3 - Aggressively volume resuscitate with suspected ATN due to persistent hypotension with UA to confirm suspicion pending at this time. Recheck CMP daily to monitor for improvement. 5. Hyponatremia of 127 mmol/L, Hypokalemia of 3.2 mmol/L, hypomagnesemia of 1.2 mg/dL and Severe Hypocalcemia of 6.6 mg/dL present on admission complicating #1 - #4 - Replace electrolytes IV and recheck levels in the AM. 6. PAF; on BASA (not on anticoagulation) adding to the complexity and potential worsening risk profile of #1 - #5 - Hold BASA until further notice. Give IV Digoxin prn if RVR develops. 7. History of Crohn's disease - Apparently stable with no evidence of acute flare at this time. 8. Essential hypertension - Hold scheduled antihypertensives with hemorrhagic shock outlined in #1. 9. History of tobacco abuse; with subsequent asthma/COPD plus LIZ; non-compliant with CPAP - Stable with no evidence of flare at this time. Continue nocturnal CPAP if patient not intubated for procedure. 10. Hyperlipidemia - Hold statin until further notice with active UGIB and hyperbilirubinemia with hypertransaminasemia. 11. History of chronic diastolic CHF; with preserved LVEF 50% (09/2023) - Noted with no signs of volume overload at this time. 12. History of ischemic cardiomyopathy - Noted. 13. History of AICD - Stable. 14. Generalized anxiety - Noted. 15. OA - Stable. 16. DVT prophylaxis - SCD's only. Chemoprophylaxis is contraindicated at this time due to active bleeding and thrombocytopenia both outlined in #1. Total time: Approximately 85 minutes. Charges/Coding Visit Charges Inpatient E&M: 45054 Init Hosp L3
--- NOTE | 2023-12-18 21:09 | NURSING ---
clemente insertion x2 attempts by unsuccessful
--- NOTE | 2023-12-18 21:45 | PRE.ANES_ITS ---
ASA Classification* ASA Classification ASA Classification: 4 and E Assessment & Plan Anesthesia* Anesthesia Assessment Anesthesia Assessment: Discussed sedation and/or anesthesia options, risks, benefits, and alternatives with patient/parents/legal guardian/POA. Questions invited. The patient/parents/legal guardian/POA seems to understand and agrees to proceed with anesthesia plan. Reviewed the physical assessment, medical history, allergy history and patient home medications list prior to surgery/procedure/anesthetic and documented any changes. Performed airway and anesthesia risk assessments. Anesthesia Type Anesthesia Type: General (RSI due to Blood presumed in stomach due to upper gi beed) Anesthesia Focused Assessment* Temperature: 98.6 F Pulse Rate: 104 Blood Pressure: 85/66 Respiratory Rate: 22 Pulse Ox: 99 Airway Assessment Mouth opens: >3 cm Mallampati Score: II Focused Labs Anesthesia Preop lab: CBC WBC 12.0 K/mm3 (4.4-11.0) H 12/18/23 18:20 RBC 2.82 M/mm3 (4.6-6.2) L 12/18/23 18:20 Hgb 10.9 g/dL (13.0-16.5) L 12/18/23 18:20 Hct 30.5 % (40-54) L 12/18/23 18:20 Plt Count 80 K/mm3 (150-450) L 12/18/23 18:20 CHEMISTRY Potassium 3.2 mmol/L (3.5-5.1) L 12/18/23 18:20 Sodium 127 mmol/L (136-145) L 12/18/23 18:20 Magnesium 1.7 mg/dL (1.6-2.6) 10/04/23 07:10 Phosphorus 2.0 mg/dL (2.5-4.9) L 10/04/23 07:10 BUN 89 mg/dL (7-18) H 12/18/23 18:20 Creatinine 3.23 mg/dL (0.70-1.30) H 12/18/23 18:20 Glucose 199 mg/dL (74-106) H 12/18/23 18:20 COAG PT 12.0 SECONDS (11.7-14.9) 10/03/23 01:15 Pre-Assessment Diagnosis/Proposed Procedure Planned Operative Procedure(s): EGD for Acute blood loss upper GI Anesthesia History Anesthesia History - technical support associate: Anesthesia History - technical support associate Hx Hospitalization Any Problems With Anesthesia Cholinesterase deficiency You/Your Family Experience fever (hyperthermia) with Relationship Recent Exposure to Contagious Disease Does patient have nerve stimulator Patient instructed to have device shut off --Does patient have Pacemaker or ICD? When Was Last Pacemaker Check QUESTION #4 FULL TEXT: You/Your Family Experience fever (hyperthermia) with Anesthesia Last Oral Intake Last Oral intake: Last Oral Intake NPO since Meds taken in AM with sips of water? Meds patient instructed to take am of surgery PONV PONV - technical support associate: PONV - technical support associate Female HX of Motion Sickness HX of N/V After Surgery Non-Smoker Duration of Surgery greater than 60 minutes Number of Risk Factors PONV Score Height & Weight Height & Weight: Anesthesia: Height & Weight Height 5 ft 6 in 12/18/23 18:07 Weight: 71.6 kg 12/18/23 18:07 Body Mass Index (BMI) 25.4 12/18/23 18:07 Respiratory Assessment Respiratory Assessment - technical support associate: Respiratory Tract Infection Hx - technical support associate Hx Respiratory Tract Infection STOP Sleep Apnea STOP Sleep Apnea - technical support associate: STOP Sleep Apnea - technical support associate Hx Hypertension Yes 10/03/23 05:40 Hx Sleep Apnea Yes 10/03/23 05:40 CPAP No 10/03/23 05:40 BIPAP No 10/03/23 05:40 Do you snore loudly (louder than talking or can be heard Do you often feel tired/ fatigued/ sleepy during daytime? Has anyone observed you stop breathing during sleep? STOP Results QUESTION #5 FULL TEXT : Do you snore loudly (louder than talking or can be heard through closed doors)? Tobacco Use History Tobacco Use History - technical support associate: Tobacco Use History - technical support associate Tobacco Use Smoking Status Current every day smoker 12/18/23 19:57 Hx Tobacco Use Yes 10/03/23 05:40 Years Smoking Packs Smoked per Day Smoking Cessation Date was within the last 15 years Hx Smoking Cessation Date Hx Smoking Cessation Counseling Hematologic Medial History Hematologic Hx - technical support associate: Hematologic Medical Hx - contact center director Hx of Blood Transfusion Hx of Transfusion in last 3 Months Date of Last Transfusion (if within last 3 months) Ever experience any problems with transfusion(s)? Specify any problems Hx of Preganancy in last 3 Months Nurse Filling Out Transfusion & Questions: Date: Time: Patient unable to answer at this time (ie. confused, unrespo /Reproduction History /Reproductive History - technical support associate: /Reproductive Hx- technical support associate Hx Now Gestational Age (in weeks): EDC: Hx Hx Para Hx Section SAB Active Medications Active Medications: Current Medications Generic Name Dose Route Start Last Admin Trade Name Freq PRN Reason Stop Dose Admin Pantoprazole Sodium 80 mg/ 100 mls @ 10 mls/hr 12/18/23 18:15 12/18/23 18:58 Sodium Chloride CONT INF 10 mls/hr Q10H PJ Administration Lactated Ringer's 1,000 mls @ 999 mls/hr 12/18/23 21:30 IV .Q1H1M PJ Piperacillin Sod/Tazobactam 50 mls @ 12.5 mls/hr 12/18/23 22:00 Sod 3.375 gm/ Sodium Chloride IV Q12 PJ Ondansetron HCl 4 mg 12/18/23 21:23 Ondansetron 4 Mg/2 Ml Vial IV Q8H PRN PRN NAUSEA/VOMITING Phenobarbital 100 mg 12/18/23 22:00 Phenobarbital Sodium 130 Mg/Ml Vial IV TID PJ PFSH Medical History Alcohol abuse Anxiety PAF (paroxysmal atrial fibrillation) Tobacco use HLD (hyperlipidemia) Crohn's disease Sleep apnea COPD (chronic obstructive pulmonary disease) Asthma Congestive heart failure (CHF) Hypertension ICD (implantable cardioverter-defibrillator) in place Heart attack Home Medications ?Medication ?Instructions ?Recorded ?Last Taken ?Type aspirin 81 mg tablet,delayed 81 mg PO BREAKFAST 30 days #30 tabs 10/03/23 Unknown Rx release atorvastatin 80 mg tablet 80 mg PO QHS 30 days #30 tabs 10/03/23 Unknown Rx carvedilol 25 mg tablet 25 mg PO BID BP 10/03/23 Unknown History lisinopril 10 mg tablet 10 mg PO DAILY 30 days #30 tabs 10/03/23 Unknown Rx potassium chloride 20 mEq 20 meq PO DAILY #14 tabs 10/03/23 Unknown Rx tablet,extended release spironolactone 25 mg tablet 25 mg PO DAILY BP/fluid retention 10/03/23 Unknown History Allergy/AdvReac Type Severity Reaction Status Date / Time bee venom protein (honey bee) Allergy Mild Swelling Verified 10/03/23 01:16 Family History Mother Hypertension Heart disease Father Hypertension CAD (coronary artery disease) Heart disease Myocardial infarction Surgical History S/P implantation of automatic cardioverter/defibrillator (AICD) Hx of heart artery stent Social History household members: none number of children: 1 current occupational status: disabled pets and animals: No Smoking Status: Current every day smoker tobacco type: cigarettes alcohol intake: current alcohol intake frequency: 3 or more drinks per day details: Whiskey 3-4 shots per day last drink october 01 substance use type: does not use Review of Systems (Anesthesia) ROS Narrative System reviewed and no additional complaints, except as documented.
--- NOTE | 2023-12-18 21:48 | EX.PCM.CON.G ---
HPI Consult Data Date of Consult: 12/18/23 HPI Narrative Reason for Consultation: GI bleed HPI Narrative: KARTHIK TOUSSAINT, is a 48 M who presents to the emergency department complaint of generalized weakness and black stools. Patient states that he has had black stools x 3 to 4 days. He has history of colitis. Patient also abuses alcohol. Normally drinks whiskey. Patient also with history of A-fib and has an ICD in place. He denies chest pain or abdominal pain. He denies vomiting blood. He does have history of a bleeding ulcer. He has not been on PPI prophylaxis as per the chart. He has a history of a recent non-ST segment elevation MT. He underwent cardiac catheterization 2 months ago and has been on aspirin therapy. Findings from his cardiac catheterization were as follows: CORONARY ANGIOGRAPHY DOMINANCE: Right Dominant LEFT HEART ASSESSMENT Left Ventricular Ejection Fraction: by LV Gram 45 % Inferior Basal Akinesis Depressed Left Ventricular systolic function LEFT MAIN: Mild calcification, Mild luminal irregularities LEFT ANTERIOR DESCENDING ARTERY: Previously placed stent in the left anterior descending artery is patent with no significant stenosis noted. CIRCUMFLEX ARTERY: Small vessel with moderate luminal irregularities present. Left to right collaterals noted RIGHT CORONARY ARTERY: PROX RCA: is occluded COLLATERAL FLOW: Collateral flow from Left to Right In the emergency room he was determined to be hypotensive to the 80s and tachycardic. He received 2 L fluid bolus of normal saline and 2 units of trauma blood. Laboratory analysis is as follows. WBC 12.0 H, RBC 2.82 L, Hgb 10.9 L, Hct 30.5 L, MCV 108.2 H, MCH 38.7 H, MCHC 35.7, RDW Std Deviation 60.4 H, RDW Coeff of Amanda 15.1 H, Plt Count 80 L, Sodium 127 L, Potassium 3.2 L, Chloride 81 L, Carbon Dioxide 21.0, Anion Gap 25 H, BUN 89 H, Creatinine 3.23 H Lactic Acid 7.4 H* Total Bilirubin 2.40 H, AST 463 H, ALT 125 H, Alkaline Phosphatase 193 H, , Total Protein 5.6 L, Albumin 2.6 L, Troponin I High Sens 223 H* [facility] Medical History Alcohol abuse Anxiety PAF (paroxysmal atrial fibrillation) Tobacco use HLD (hyperlipidemia) Crohn's disease Sleep apnea COPD (chronic obstructive pulmonary disease) Asthma Congestive heart failure (CHF) Hypertension ICD (implantable cardioverter-defibrillator) in place Heart attack Home Medications ?Medication ?Instructions ?Recorded ?Last Taken ?Type aspirin 81 mg tablet,delayed 81 mg PO BREAKFAST 30 days #30 tabs 10/03/23 Unknown Rx release atorvastatin 80 mg tablet 80 mg PO QHS 30 days #30 tabs 10/03/23 Unknown Rx carvedilol 25 mg tablet 25 mg PO BID BP 10/03/23 Unknown History lisinopril 10 mg tablet 10 mg PO DAILY 30 days #30 tabs 10/03/23 Unknown Rx potassium chloride 20 mEq 20 meq PO DAILY #14 tabs 10/03/23 Unknown Rx tablet,extended release spironolactone 25 mg tablet 25 mg PO DAILY BP/fluid retention 10/03/23 Unknown History Allergy/AdvReac Type Severity Reaction Status Date / Time bee venom protein (honey bee) Allergy Mild Swelling Verified 10/03/23 01:16 Family History Mother Hypertension Heart disease Father Hypertension CAD (coronary artery disease) Heart disease Myocardial infarction Surgical History S/P implantation of automatic cardioverter/defibrillator (AICD) Hx of heart artery stent Social History household members: none number of children: 1 current occupational status: disabled pets and animals: No Smoking Status: Current every day smoker tobacco type: cigarettes alcohol intake: current alcohol intake frequency: 3 or more drinks per day details: Whiskey 3-4 shots per day last drink october 01 substance use type: does not use ROS Constitutional Constitutional: Denies fever(s) or weight loss Eyes Eyes: Reports systems reviewed and no addt'l complaints, except as documented ENT HEENT: Reports systems reviewed and no addt'l complaints, except as documented Cardiovascular Cardiovascular: Denies chest pain at rest, chest pain with activity, dyspnea at rest, dyspnea on exertion, edema, palpitations or paroxysmal nocturnal dyspnea Respiratory/Chest Respiratory/Chest: Denies dyspnea on exertion, productive cough, shortness of breath at rest or shortness of breath with exertion Gastrointestinal Gastrointestinal: Denies change in bowel habits, nausea, vomiting or weight changes Genitourinary Genitourinary: Denies difficulty urinating Musculoskeletal Musculoskeletal: Denies joint stiffness or muscle weakness Integumentary Integumentary: Denies lesions Neurologic Neurologic: Denies dizziness or syncope Psychiatric Psychiatric: Denies anxiety Endocrine Endocrinology: Denies excessive sweating or fatigue Hematologic/Lymphatic Hematologic/Lymphatic: Denies anemia Allergic/Immunologic Allergic/Immunologic: Denies seasonal rhinorrhea Physical Exam Narrative General: Alert, Oriented x3, Cooperative, No apparent distress HEENT: Atraumatic, PERRLA, EOMI, Normocephalic Oral: Moist Mucosa Neck: Supple, No JVD Lungs: Diminished, Normal air movement, No rhonchi, No wheeze, No rales Cardiovascular: Regular rate, Regular Rhythm, Normal S1, Normal S2, No murmurs Abdomen: Soft, Non Tender, Non-Distended, No Hepato-splenomegaly Extremities: No edema, Capillary Refill Less than 3 Seconds Skin: No rashes, No breakdown Musculoskeletal: No Tenderness to Palpation of Joints or Extremities Neurological: No focal neurological deficits, Motor Exam 5/5 strength throughout, Sensory exam intact to light touch and pain Psych/Mental Status: Normal Affect, Appropriate Lab / Micro Data 12/18/23 18:20 12/18/23 18:20 Labs: Laboratory Results - last 24 hr 12/18/23 18:20: WBC 12.0 H, RBC 2.82 L, Hgb 10.9 L, Hct 30.5 L, MCV 108.2 H, MCH 38.7 H, MCHC 35.7, RDW Std Deviation 60.4 H, RDW Coeff of Amanda 15.1 H, Plt Count 80 L, MPV 12.3 H, Immature Gran % (Auto) 0.700, Neut % (Auto) 85.5 H, Lymph % (Auto) 7.5 L, Rice % (Auto) 6.2, Eos % (Auto) 0.0, Baso % (Auto) 0.1, Absolute Neuts (auto) 10.3 H, Absolute Lymphs (auto) 0.90, Nucleated RBC % 0.6, Differential Comment SCANNED, Platelet Estimate SLT DEC, Sodium 127 L, Potassium 3.2 L, Chloride 81 L, Carbon Dioxide 21.0, Anion Gap 25 H, BUN 89 H, Creatinine 3.23 H, Estim Creat Clear Calc 24.96, Est GFR (MDRD) Af Amer 26 L, Est GFR (MDRD) Non-Af 22 L, BUN/Creatinine Ratio 27.6 H, Glucose 199 H, Lactic Acid 7.4 H*, Calcium 6.6 L, Total Bilirubin 2.40 H, AST 463 H, ALT 125 H, Alkaline Phosphatase 193 H, Troponin I High Sens 223 H*, Total Protein 5.6 L, Albumin 2.6 L, Globulin 3.0, Albumin/Globulin Ratio 0.9, Ethyl Alcohol 115.0, Blood Type A POSITIVE, Antibody Screen NEGATIVE, Crossmatch See Detail Micro: Microbiology 12/18/23 18:20 Stool Stool Occult Blood (LISANDRA) - Final Occult Blood Positive Imaging Radiology Impression Abdomen/Pelvis CTA 12/18/23 18:49 IMPRESSION: 1. Minimal calcification of distal abdominal aorta however no evidence of aneurysmal dilatation dissection or vascular occlusion. 2. Normal appearance of the celiac SMA and JOHN. Normal appearance of the renal arteries bilaterally. 3. No masses bowel obstruction abscess free fluid or free air. There is mild wall thickening of the ascending colon and transverse colon. Mild colitis is a consideration. No masses or areas of abnormal enhancement. 4. Hepatic steatosis without hepatic masses. 5. No evidence cholelithiasis or duct dilatation. 6. No evidence of renal calcifications or obstructive uropathy. Electronically Signed: Ayo Ross MD at 20:30 EDT , Chest X-Ray 12/18/23 19:50 IMPRESSION: 1. No evidence of acute cardiac pulmonary process. 2. Subcutaneous before AICD system/defibrillator without change. Electronically Signed: Ayo Ross MD at 20:20 EDT , Assessment & Plan Assessment/Plan (1) Alcoholic hepatitis: PLAN: His labs are consistent with alcoholic hepatitis. His alcohol level currently is 110. He will be given phenobarbital. His Madrey score is 32. He cannot be given steroids due to his acute upper GI bleed. (2) Alcoholic cirrhosis of liver: PLAN: Likely alcoholic cirrhosis by his lab work and imaging there is suspicious for cirrhosis. He does have hepatosplenomegaly on imaging. Coupled with his thrombocytopenia in the setting of antiplatelet therapy with decompensated liver disease being upper GI bleed. He is very high risk and has a very high mortality. He does not have any sign of ascites at this time. He has mild jaundice. He also has acute kidney injury that is likely secondary to ATN or prerenal azotemia from GI blood loss but also could be secondary to hepatorenal syndrome. His INR is pending. (3) Alcohol abuse: PLAN: Current alcohol level is 110. He will be receiving phenobarbital. (4) Acute hypotension: PLAN: Acute hypotension secondary to GI bleed. (5) Acute upper gastrointestinal bleeding: PLAN: He will need to undergo emergent endoscopy. He was explained alternatives, risk, benefits including not withstanding bleeding, infection, sepsis, perforation, need for emergent urgent . He will have an ASA of 3. I instructed ER to give him octreotide and ceftriaxone along with PPI drip. Charges/Coding Visit Charges Inpatient E&M: 08782 Init Hosp L3
[2023-12-18 22:36] LABS: Reflex Lactate? Y
[2023-12-18] MEDS: Epinephrine (1 mg/ml) 1 MG/ML VIAL (22:37)
[2023-12-18] MEDS: 0.9% Normal Saline (Pres. free 10 ML Vial (22:37)
--- NOTE | 2023-12-18 22:44 | OP.EGD_ITS ---
Patient Name: Silver Almazan Procedure Date: 12/18/2023 9:39 PM Date of : 1975 Age: 48 Procedure: Upper GI endoscopy Indications: Coffee-ground emesis, Melena Providers: Serg White DO Medicines: Monitored Anesthesia Care Patient Profile: This is a 48 year old male. Refer to note in patient chart for documentation of history and physical. Patient has symptoms of acute vomiting. Complications: No immediate complications. Procedure: Pre-Anesthesia Assessment: - Prior to the procedure, a History and Physical was performed, and patient medications and allergies were reviewed. The patient is competent. The risks and benefits of the procedure and the sedation options and risks were discussed with the patient. All questions were answered and informed consent was obtained. Patient identification and proposed procedure were verified by the physician in the pre-procedure area. Mental Status Examination: alert and oriented. Airway Examination: normal oropharyngeal airway and neck mobility. Respiratory Examination: clear to auscultation. CV Examination: normal. Prophylactic Antibiotics: The patient does not require prophylactic antibiotics. Prior Anticoagulants: The patient has taken no anticoagulant or antiplatelet agents except for NSAID medication. ASA Grade Assessment: II - A patient with mild systemic disease. After reviewing the risks and benefits, the patient was deemed in satisfactory condition to undergo the procedure. The anesthesia plan was to use monitored anesthesia care (MAC). Immediately prior to administration of medications, the patient was re-assessed for adequacy to receive sedatives. The heart rate, respiratory rate, oxygen saturations, blood pressure, adequacy of pulmonary ventilation, and response to care were monitored throughout the procedure. The physical status of the patient was re-assessed after the procedure. After obtaining informed consent, the endoscope was passed under direct vision. Throughout the procedure, the patient's blood pressure, pulse, and oxygen saturations were monitored continuously. The gastroscope was introduced through the mouth, and advanced to the second part of duodenum. The upper GI endoscopy was accomplished without difficulty. The patient tolerated the procedure well. Scope In: 10:12:25 PM Scope Out: 10:41:03 PM Total Procedure Duration Time 0 hours 28 minutes 37 seconds Findings: The examined esophagus was normal. Four spurting cratered gastric ulcers with a visible vessel were found in the cardia, in the gastric body and at the pylorus. The largest lesion was 6 mm in largest dimension. Area was successfully injected with 8 mL of a 0.1 mg/mL solution of epinephrine for drug delivery. Estimated blood loss was minimal. Coagulation for hemostasis using heater probe was successful. Estimated blood loss was minimal. Few non-bleeding linear duodenal ulcers with no stigmata of bleeding were found in the first portion of the duodenum and in the second portion of the duodenum. The largest lesion was 4 mm in largest dimension. Impression: - Normal esophagus. - Spurting gastric ulcers with a visible vessel. Injected. Treated with a heater probe. - Non-bleeding duodenal ulcers with no stigmata of bleeding. - No specimens collected. Recommendation: - Return patient to ICU for ongoing care. - NPO. - Continue present medications. Procedure Code(s): --- Professional --- 06393, Esophagogastroduodenoscopy, flexible, transoral; with control of bleeding, any method 46269, 59,51, Esophagogastroduodenoscopy, flexible, transoral; with directed submucosal injection(s), any substance CPT copyright 2021 [employer]. All rights reserved. The codes documented in this report are preliminary and upon clinical coder review may be revised to meet current compliance requirements. Serg White DO 12/18/2023 10:43:31 PM This report has been signed electronically. Number of Addenda: 0 Note Initiated On: 12/18/2023 9:39 PM
--- NOTE | 2023-12-18 22:44 | OP.CCLET_ITS ---
12/18/2023 No Primary Care Physician Re : Upper GI endoscopy procedure for Silver Almazan Dear Care Physician This procedure was performed on Monday, December 18, 2023. My impressions and recommendations are as follows: Impressions : - Normal esophagus. - Spurting gastric ulcers with a visible vessel. Injected. Treated with a heater probe. - Non-bleeding duodenal ulcers with no stigmata of bleeding. - No specimens collected. Recommendations : - Return patient to ICU for ongoing care. - NPO. - Continue present medications. My findings are described in the full procedure note, which is enclosed. If I can be of further assistance, please feel free to contact me at . Sincerely, Serg White DO 12/18/2023 10:43:31 PM This report has been signed electronically.
--- NOTE | 2023-12-18 23:20 | PCM.POST.ANE ---
Anesthesia: Postop Eval I Current Vital Signs Temperature: 97 F Pulse Rate: 93 Blood Pressure: 94/52 Respiratory Rate: 19 Pulse Ox: 98 Assessment Airway patent: Yes Spontaneous unlabored respirations: Yes nausea: No Vomiting: No Anesthesia Complication: No Fluid Hydration Crystalloid volume administer (ml): 400 Total IV fluid infused: 400 Progress Note Anesthesia document: Postop Eval 1 completed: Yes
--- NOTE | 2023-12-18 23:21 | POSTOPAN2_ITS ---
Anesthesia Postop Eval I Sum Postop Eval Completion status Anesthesia document: Postop Eval 1 completed: Yes Anesthesia Postop Eval I Summary Anesthesia Postop Eval I Summary: Anesthesia Postop Eval I: Assessment Summary Airway patent Yes 12/18/23 23:20 [email or web address] Spontaneous unlabored Yes 12/18/23 23:20 [email or web address] [email or web address] respirations Mental status nausea No 12/18/23 23:20 [email or web address] [email or web address] Vomiting No 12/18/23 23:20 [email or web address] Anesthesia Postop Eval I: Fluid Summary Crystalloid volume administer 400 12/18/23 23:20 [email or web address] (ml) Colloids volume administered ( ml) Blood Product volume administered (ml) Total IV fluid infused 400 12/18/23 23:20 [email or web address] Anesthesia Postop Eval I: Summary Notes Anesthesia Complication No 12/18/23 23:20 [email or web address] Anesthesia Complication Comment: Post-operative progress note Anesthesia: Postop Eval II Evaluation Mental status: Awake Pain Level: 0 nausea: No Vomiting: No
--- NOTE | 2023-12-18 23:21 | PCM.POSTANE2 ---
Anesthesia Postop Eval I Sum Postop Eval Completion status Anesthesia document: Postop Eval 1 completed: Yes Anesthesia Postop Eval I Summary Anesthesia Postop Eval I Summary: Anesthesia Postop Eval I: Assessment Summary Airway patent Yes 12/18/23 23:20 SATURATION EQUIPMENT [email or web address].[email or web address] Spontaneous unlabored Yes 12/18/23 23:20 SATURATION EQUIPMENT OPERATOR.[email or web address] respirations Mental status nausea No 12/18/23 23:20 SATURATION EQUIPMENT OPERATOR.[email or web address] Vomiting No 12/18/23 23:20 SATURATION EQUIPMENT OPERATOR.[email or web address] Anesthesia Postop Eval I: Fluid Summary Crystalloid volume administer 400 12/18/23 23:20 SATURATION EQUIPMENT OPERATOR.[email or web address] (ml) Colloids volume administered ( ml) Blood Product volume administered (ml) Total IV fluid infused 400 12/18/23 23:20 SATURATION EQUIPMENT OPERATOR.JCOTE Anesthesia Postop Eval I: Summary Notes Anesthesia Complication No 12/18/23 23:20 SATURATION EQUIPMENT OPERATOR.JCOTE Anesthesia Complication Comment: Post-operative progress note Anesthesia: Postop Eval II Evaluation Mental status: Awake Pain Level: 0 nausea: No Vomiting: No
[2023-12-18] MEDS: Lactated Ringers 1,000 ML 999 ML IV (23:35)
[2023-12-18] MEDS: Phenobarbital Sodium 130 MG/ML Vial 100 MG IV (23:58)
[2023-12-18] MEDS: Potassium Phosphate 40 MM in 0.9% Normal Saline (500mL Bag) 500 ML 62.5 MM IV (23:58)
[2023-12-18] MEDS: Piperacil/Tazobactam 3.375 GM in 0.9% Normal Saline (50mL MB+) 50 ML IV (23:58)
[2023-12-18] MEDS: Calcium Gluconate 1 GM/10 ML Vial IVP (23:59)
[2023-12-19] VITALS (52 sets, daily range): BP systolic 66–141; BP diastolic 48–107; PULSE 74–110; RESP 17–26; TEMP 37.8–38.4; O2SAT 94–100; BMI 24.3
[2023-12-19] MEDS: dexMEDEtomidine 400 MCG in 0.9% Normal Saline (100mL Bag) 96 ML 9 MCG CONT INF
[2023-12-19 00:22] LABS: Troponin-I HS 213 pg/mL (3.0-78.0)
--- NOTE | 2023-12-19 00:27 | ED.RN ---
Soft restraints applied due to unable to redirect pt, pulling at tubes.
[2023-12-19 00:42] LABS: Blood Gas Specimen Type VEN; O2 Delivery Device Not entered; SITE Not entered; VBG BASE EXCESS -2 mmol/L (-1.0-3.5); VBG Bicarbonate 22 mmol/L (22-26); VBG PO2 29 mmHg (25-40); VBG SO2 60 % (50-70); VBG TCO2 23 mmol/L (23-33); VBG pCO2 31.8 mmHg (41-51); VBG pH 7.44 (7.32-7.42)
[2023-12-19 00:52] LABS: Lactic Acid 6.2 mmol/L (0.4-1.9)
[2023-12-19] MEDS: 0.9% Normal Saline (250mL Bag) 250 ML 15 ML IV (01:30)
[2023-12-19 01:55] LABS: Bacteria 0 SEEN /hpf (None Seen); Mucous, Urine 0 SEEN /hpf (<or=2+); Red Blood Cells-Urine 0 SEEN /hpf (0-5); Squamous Epithelial Cells - UA 0 SEEN /hpf (0-5); White Blood Cells 0 SEEN /hpf (0-5)
[2023-12-19 01:57] LABS: Color, Urine Yellow (Yellow); Glucose, Dipstick Normal (Normal); Ketone-Dipstick 15 mg/dl (Negative); Leukocyte Esterase-Dipstick Negative /ul (Negative); Nitrite-Dipstick Negative (Negative); Occult Blood-Urine 50 /ul (Negative); Protein-Dipstick 30 mg/dl (Negative); Urine Bilirubin Dipstick Negative (Negative); Urine Clarity Clear (Clear); Urine Urobilinogen 1 mg/dl (Normal)
[2023-12-19] MEDS: Norepinephrine 8 MG in 0.9% Normal Saline (250mL Bag) 242 ML 9.4 MG CONT INF (02:35)
[2023-12-19] MEDS: LACTATED RINGERS 500 ML 999 ML IV (02:49)
[2023-12-19] MEDS: Pantoprazole Sodium 80 MG in 0.9% Normal Saline (100mL Bag) 80 ML 10 MG CONT INF ×2 (04:35→14:01)
[2023-12-19 05:55] LABS: Absolute Neutrophil Count 9.6 X10^3/uL (2.0-7.7); Basophil# 0.02 X10^3/uL; Basophil% 0.2 % (0-1); Hematocrit 28.5 % (40-54); Hemoglobin 10.3 g/dL (13.0-16.5); Lymphocyte % 7.1 % (19-41); Mean Corp Hgb Conc 36.1 g/dL (32-36); Mean Corpuscular Hgb 35.8 pg (27.0-32.0); Mean Platelet Vol. 12.7 fl (6.2-12.0); Monocyte# 0.61 X10^3/uL; Monocyte% 5.4 % (0-10); NRBC Flagged by Analyzer 0.3 % (0-5); Neutrophil # 9.61 X10^3/uL (2.7-7.7); Neutrophil % 85.9 % (47-70); POSITIVE COUNT YES; POSITIVE MORPHOLOGY YES; Platelet Count 57 K/mm3 (150-450); RBC Distribution Width CV 19.6 % (11.6-14.6); RBC Distribution Width SD 71.1 fl (35.1-43.9); Red Blood Count 2.88 M/mm3 (4.6-6.2); White Blood Count 11.2 K/mm3 (4.4-11.0)
[2023-12-19] MEDS: Phenobarbital Sodium 130 MG/ML Vial 100 MG IV (05:59)
[2023-12-19] MEDS: Piperacil/Tazobactam 3.375 GM in 0.9% Normal Saline (50mL MB+) 50 ML IV ×3 (05:59→21:35)
[2023-12-19 06:04] LABS: Differential Indicated SCAN CRITERIA MET
[2023-12-19 06:43] LABS: ALB/GLOB Ratio 0.9 RATIO (0.9-2.4); AST(SGOT) 189 U/L (15-37); Alanine Aminotransfer ALT/SGPT 68 U/L (16-61); Albumin, Serum 2.1 g/dL (3.2-5.0); Alkaline Phosphatase 134 U/L (45-117); Anion Gap 13 (5-15); BUN 72 mg/dL (7-18); BUN/Creat Ratio 36.7 RATIO (10-20); Calcium,Total 6.7 mg/dL (8.5-10.1); Chloride 96 mmol/L (98-107); Creatinine, Serum 1.96 mg/dL (0.70-1.30); EST Glomerular Filtration Rate 39 mL/min (>60); Est Glom Filt Rate - Afr Amer 47 mL/min (>60); Estimated Creatinine Clearance 41.14 ml/min; Globulin 2.3 g/dL (2.2-4.2); Glucose 122 mg/dL (74-106); Magnesium 1.2 mg/dL (1.6-2.6); Phosphorus 2.9 mg/dL (2.5-4.9); Potassium 3.3 mmol/L (3.5-5.1); Protein, Total 4.4 g/dL (6.4-8.2); Sodium Level 135 mmol/L (136-145); Thyroid Stim Hormone (TSH) 0.78 uIU/mL (0.358-3.74)
--- NOTE | 2023-12-19 07:19 | PCM.PN.HOSP ---
Reason for Visit Reason for Visit: Diagnoses Alcohol abuse, uncomplicated (12/18/23) Hypotension, unspecified (12/18/23) Alcoholic hepatitis without ascites (12/18/23) Alcoholic cirrhosis of liver without ascites (12/18/23) Gastrointestinal hemorrhage, unspecified (12/18/23) Subjective Subjective Patient is a 48-year-old gentleman with past medical history significant for alcoholic cirrhosis of the liver admitted with melena Objective Data Objective Data Vital Signs: Vital Signs Temp Pulse Resp BP Pulse Ox O2 Del Method O2 Flow Rate 100.4 F H 80 25 H 87/65 L 98 Nasal Cannula 4 12/19/23 06:15 12/19/23 06:15 12/19/23 06:15 12/19/23 06:15 12/19/23 06:15 12/19/23 06:15 12/19/23 06:15 Oxygen Flow Rate (L/min) 4 Oxygen Delivery Method Nasal Cannula Weight: 68.7 kg Body Mass Index (BMI) 24.3 Intake & Output: Intake and Output for Last 24 Hours 12/17/23 12/18/23 12/19/23 23:59 23:59 23:59 Intake Total 2350 / 2350 1777.51 / 1777.51 Output Total 1175 / 1175 Balance 2350 / 2350 602.51 / 602.51 Lab / Micro Data 12/19/23 05:40 12/19/23 05:40 Labs: Laboratory Results - last 24 hr 12/18/23 01:50: Urine Color Yellow, Urine Clarity Clear, Urine pH 6.0, Ur Specific [place] 1.010, Urine Protein 30 H, Urine Glucose (UA) Normal, Urine Ketones 15 H, Urine Occult Blood 50 H, Urine Nitrite Negative, Urine Bilirubin Negative, Urine Urobilinogen 1 H, Ur Leukocyte Esterase Negative, Urine RBC 0 SEEN, Urine WBC 0 SEEN, Ur Squamous Epith Cells 0 SEEN, Urine Bacteria 0 SEEN, Urine Mucus 0 SEEN 12/18/23 18:20: WBC 12.0 H, RBC 2.82 L, Hgb 10.9 L, Hct 30.5 L, MCV 108.2 H, MCH 38.7 H, MCHC 35.7, RDW Std Deviation 60.4 H, RDW Coeff of Amanda 15.1 H, Plt Count 80 L, MPV 12.3 H, Immature Gran % (Auto) 0.700, Neut % (Auto) 85.5 H, Lymph % (Auto) 7.5 L, [place] % (Auto) 6.2, Eos % (Auto) 0.0, Baso % (Auto) 0.1, Absolute Neuts (auto) 10.3 H, Absolute Lymphs (auto) 0.90, Nucleated RBC % 0.6, Differential Comment SCANNED, Platelet Estimate SLT DEC, Sodium 127 L, Potassium 3.2 L, Chloride 81 L, Carbon Dioxide 21.0, Anion Gap 25 H, BUN 89 H, Creatinine 3.23 H, Estim Creat Clear Calc 24.96, Est GFR (MDRD) Af Amer 26 L, Est GFR (MDRD) Non-Af 22 L, BUN/Creatinine Ratio 27.6 H, Glucose 199 H, Lactic Acid 7.4 H*, Calcium 6.6 L, Total Bilirubin 2.40 H, AST 463 H, ALT 125 H, Alkaline Phosphatase 193 H, Troponin I High Sens 223 H*, Total Protein 5.6 L, Albumin 2.6 L, Globulin 3.0, Albumin/Globulin Ratio 0.9, Ethyl Alcohol 115.0, Blood Type A POSITIVE, Antibody Screen NEGATIVE, Crossmatch See Detail 12/18/23 23:40: Lactic Acid 6.2 H*, Troponin I High Sens 213 H* 12/19/23 05:40: WBC 11.2 H, RBC 2.88 L, Hgb 10.3 L, Hct 28.5 L, MCV 99.0 H D, MCH 35.8 H, MCHC 36.1 H, RDW Std Deviation 71.1 H, RDW Coeff of [place] 19.6 H, Plt Count 57 L, MPV 12.7 H, Immature Gran % (Auto) 1.400 H, Neut % (Auto) 85.9 H, Lymph % (Auto) 7.1 L, [place] % (Auto) 5.4, Eos % (Auto) 0.0, Baso % (Auto) 0.2, Absolute Neuts (auto) 9.6 H, Absolute Lymphs (auto) 0.80 L, Nucleated RBC % 0.3, Sodium 135 L, Potassium 3.3 L, Chloride 96 L, Carbon Dioxide 26.0, Anion Gap 13, BUN 72 H, Creatinine 1.96 H, Estim Creat Clear Calc 41.14, Est GFR (MDRD) Af Amer 47 L, Est GFR (MDRD) Non-Af 39 L, BUN/Creatinine Ratio 36.7 H, Glucose 122 H, Calcium 6.7 L, Phosphorus 2.9, Magnesium 1.2 L, Total Bilirubin 1.90 H, AST 189 H, ALT 68 H, Alkaline Phosphatase 134 H, Total Protein 4.4 L, Albumin 2.1 L, Globulin 2.3, Albumin/Globulin Ratio 0.9, TSH 0.78 Micro: Microbiology 12/18/23 18:20 Stool Stool Occult Blood (LISANDRA) - Final Occult Blood Positive ABG Data ABG results: ABG 12/19/23 00:38 Specimen Type PRIYANK Sample Site Not entered VBG pH 7.44 H VBG pO2 29 VBG HCO3 22 VBG Total CO2 23 VBG O2 Sat (Calc) 60 VBG Base Excess -2 L POC Mix VBG pCO2 Pt Tmp 31.8 L O2 Delivery Device Not entered Radiography Diagnostic Testing: Radiology Impression Abdomen/Pelvis CTA 12/18/23 18:49 IMPRESSION: 1. Minimal calcification of distal abdominal aorta however no evidence of aneurysmal dilatation dissection or vascular occlusion. 2. Normal appearance of the celiac SMA and JOHN. Normal appearance of the renal arteries bilaterally. 3. No masses bowel obstruction abscess free fluid or free air. There is mild wall thickening of the ascending colon and transverse colon. Mild colitis is a consideration. No masses or areas of abnormal enhancement. 4. Hepatic steatosis without hepatic masses. 5. No evidence cholelithiasis or duct dilatation. 6. No evidence of renal calcifications or obstructive uropathy. Electronically Signed: Ayo Ross MD at 20:30 EDT , Chest X-Ray 12/18/23 19:50 IMPRESSION: 1. No evidence of acute cardiac pulmonary process. 2. Subcutaneous before AICD system/defibrillator without change. Electronically Signed: Ayo Ross MD at 20:20 EDT , Physical Exam Narrative GENERAL: Lethargic but arousable HEENT: Atraumatic; normocephalic EYES; Anicteric, Normal Conjunctiva NECK; supple, normal thyroid, RESPIRATORY: Diminished to auscultation CARDIOVASCULAR: Regular S1 S2, GI: soft, normoactive bowel sounds, : No Renal angle tenderness; EXTREMITIES: No edema, no clubbing, MUSCULOSKELETAL: no muscle wasting NEURO: no lateralizing signs. SKIN: No Rash PSYCH; significantly lethargic Assessment & Plan Assessment/Plan (1) Gastrointestinal hemorrhage with melena: PLAN: Plan Patient is a 48-year-old gentleman with past medical history significant for alcoholic cirrhosis of the liver admitted with melena 1. Acute GI bleed ? Secondary to upper GI bleed from gastric ulcer exacerbated by patient thrombocytopenia as well as antiplatelet use. Patient underwent emergent upper EGD by Dr. White with gastroenterology was found to have Spurting gastric ulcers with a visible vessel. Injected. Treated with a heater probe. - Non-bleeding duodenal ulcers with no stigmata of bleeding. Patient currently managed in intensive care unit 2. Chronic alcohol use at risk for withdrawal ? Patient is on phenobarb and Precedex Precedex has since been discontinued 3. Hypovolemic shock ? Resuscitated with with blood transfusion and subsequently IV fluids in addition to norepinephrine 4.Anemia ? Secondary to acute blood loss anemia, patient was transfused. 2 unit PRBC. Monitoring H&H with plans to transfuse if patient is deemed to be symptomatic or hemoglobin falls below 7 5. Elevated troponin ? Secondary to demand ischemia patient presentation not consistent with acute coronary syndrome , 6. Coronary artery disease ? With previous STEMI with subsequent PCI with stent to LAD and RCA lesion patient is on guideline directed medical therapy. His dual antiplatelet therapy held in view of his presentation 7. Hypokalemia ? Corrected per protocol 8. Hyponatremia ? Secondary to chronic alcohol use monitoring with daily BMPs 9. Acute renal failure ? Suspected to be secondary to hepatorenal syndrome as well as volume depletion patient be resuscitated with IV fluid with monitoring of electrolyte with daily BMPs 10. Paroxysmal atrial fibrillation ? Patient not on systemic anticoagulation due to significant risk for bleeding rate remains controlled 11. Chronic disease ? Stable 12. Essential hypertension ? Patient antihypertensives on hold given his low blood pressure 13. Thrombocytopenia Secondary to chronic alcohol use 14. Tobacco dependence - Counseled on cessation, offered nicotine patch for tobacco cravings 15. Obstructive sleep apnea ? Consistent use of PAP therapy encourage 16. Asthmatic bronchitis ? Bronchodilator treatment as needed 17. Acute alcoholic transaminitis ? Monitoring LFTs 18. DVT prophylaxis ? Bilateral SCDs Time spent in the patient's overall evaluation,decision-making process, review of diagnostic data, adjustment of management, discussion with other providers, nursing nursing and ancillary staff involved in patient's care documentation, 52 Minutes Charges/Coding Visit Charges Inpatient E&M: 47122 Subs Hosp L3
--- NOTE | 2023-12-19 07:30 | CON.PCM.CC_ITS ---
Assessment & Plan Assessment/Plan (1) Gastrointestinal hemorrhage with melena: (2) Alcoholic cirrhosis of liver: QUALIFIERS: Ascites presence: unspecified Qualified Code(s): K 70.30 - Alcoholic cirrhosis of liver without ascites PLAN: Plan RECOMMENDATIONS: 1. Discontinue Precedex. 2. Obtain and send blood for culture. 3. Continue empiric antibiotics. 4. Continue PPI therapy. 5. Phenobarbital taper as ordered. 6. Transfuse blood products if hemoglobin drops below 7 g/dL. 7. Start thiamine and folic acid. IMPRESSIONS: 1. Hypotension I do suspect that the patient's current hypotension is likely multifactorial in etiology. While I agree that there was likely a hemorrhagic component to his presenting blood pressures, I believe that a component of his ongoing hypotension is related to polypharmacy, with phenobarbital and Precedex having been administered overnight. At the present time, the patient's blood counts are stable. He has received an adequate amount of IV fluid resuscitation. His Precedex infusion has been discontinued. The patient's IV phenobarbital will be transitioned to a taper. The patient will be continued on Levophed to maintain a mean arterial pressure at or above 65 mmHg. Although the patient was placed empirically on antibiotics, no definitive source of infection has yet to be identified. Therefore, antibiotics will be continued, pending finalized culture results. 2. Anemia related to upper GI bleed The patient presented to the hospital with melena in the setting of bleeding gastric ulcers, which were treated endoscopically by gastroenterology. The patient will be continued on PPI therapy as ordered. Otherwise, continue to monitor blood counts and transfuse if hemoglobin drops below 7 g/dL. 3. Acute kidney injury Most likely prerenal in etiology. The patient's creatinine has improved with volume expansion. Continue vasopressor support to maintain hemodynamic stability. Will continue to monitor urine output for now. There is no current indication for renal replacement therapy. 4. Elevated troponin Most likely related to demand ischemia in the setting of presenting anemia and melena. Continue current medical management. 5. Chronic alcohol dependency The patient has a longstanding history of alcohol dependency. The patient did have a positive alcohol level upon presentation. This morning, the patient was far too sedated. Therefore, Precedex was discontinued. His phenobarbital will be transitioned to a taper, accordingly. Thiamine and folic acid will be initiated. 6. History of coronary artery disease status post PCI/heart failure with preserved ejection fraction/hypertension/hyperlipidemia Complicates care, management, recovery and prognosis. Continue to hold home antihypertensives for now. The patient is to remain NPO. TIME: 37 minutes of critical care time, independent of procedures, was spent addressing the patient's hypotension, anemia, acute kidney injury, elevated troponin, alcohol dependency, review of all data and collaboration with the care team. HPI Consult Data Date of Consult: 12/19/23 HPI Narrative Reason for Consultation: Hypotension HPI Narrative: The patient is a 48-year-old male, with a history as outlined below, who presented to the emergency department on December 17 with melanotic stools of 3 to 4 days duration. History pertinent to his hospitalization was obtained primarily via chart review, the patient is currently sedated and too encephalopathic to provide any additional details. He has a known medical history that includes chronic alcohol dependency, history of coronary artery disease status post PCI, paroxysmal atrial fibrillation, heart failure with preserved ejection fraction, obstructive sleep apnea, hypertension and hyperlipidemia. In addition, the patient reportedly also has a history of unspecified colitis. On presentation to the emergency department, the patient was initially documented to be afebrile and was mildly tachycardic and tachypneic with a presenting blood pressure of 85/66 mmHg. Initial laboratory evaluation revealed a white blood cell count of 12,000 with a hemoglobin of 10.9 g/dL. Platelet count was low at 80,000. Chemistry profile was notable for a sodium of 127, potassium of 3.2, chloride of 81, BUN of 89 and creatinine of 3.23. Lactate was elevated at 7.4. Total bilirubin was increased to 2.4 with an AST of 463, ALT of 125 and alkaline phosphatase of 193. Troponin was increased to 223. TSH was normal at 0.78. Urine analysis was unremarkable. Alcohol level was noted to be 115. CTA abdomen/pelvis demonstrated mild wall thickening of the ascending and transverse colon. No other pathology was identified. Chest imaging demonstrated no acute cardiopulmonary process. The patient was seen in consultation by gastroenterology and underwent endoscopic evaluation, which revealed bleeding gastric ulcers which were injected and treated with a heater probe. Several nonbleeding duodenal ulcers were also identified. The patient was transfused 2 units packed red blood cells and received supplemental IV fluid hydration. On account of persistent hypotension, the patient was initiated on antimicrobials and vasopressor support. [facility] Medical History Alcohol abuse Anxiety PAF (paroxysmal atrial fibrillation) Tobacco use HLD (hyperlipidemia) Crohn's disease Sleep apnea COPD (chronic obstructive pulmonary disease) Asthma Congestive heart failure (CHF) Hypertension ICD (implantable cardioverter-defibrillator) in place Heart attack Home Medications ?Medication ?Instructions ?Recorded ?Last Taken ?Type aspirin 81 mg tablet,delayed 81 mg PO BREAKFAST 30 days #30 tabs 10/03/23 Unknown Rx release atorvastatin 80 mg tablet 80 mg PO QHS 30 days #30 tabs 10/03/23 Unknown Rx carvedilol 25 mg tablet 25 mg PO BID BP 10/03/23 Unknown History lisinopril 10 mg tablet 10 mg PO DAILY 30 days #30 tabs 10/03/23 Unknown Rx potassium chloride 20 mEq 20 meq PO DAILY #14 tabs 10/03/23 Unknown Rx tablet,extended release spironolactone 25 mg tablet 25 mg PO DAILY BP/fluid retention 10/03/23 Unknown History Allergy/AdvReac Type Severity Reaction Status Date / Time bee venom protein (honey bee) Allergy Mild Swelling Verified 10/03/23 01:16 Family History Mother Hypertension Heart disease Father Hypertension CAD (coronary artery disease) Heart disease Myocardial infarction Surgical History S/P implantation of automatic cardioverter/defibrillator (AICD) Hx of heart artery stent Social History household members: none number of children: 1 current occupational status: disabled pets and animals: No Smoking Status: Current every day smoker tobacco type: cigarettes alcohol intake: current alcohol intake frequency: 3 or more drinks per day details: Whiskey 3-4 shots per day last drink october 01 substance use type: does not use ROS Review of Systems ROS Unobtainable: due to mental status Physical Exam Const Constitutional Narrative: The patient is quite somnolent with minimal response to verbal stimulation. HEENT normocephalic and head/scalp atraumatic HEENT Narrative: Dry mucous membranes. Poor dentition. Eyes PERRL Neck supple General: trachea midline Chest inspection of chest normal Resp normal respiratory effort Auscultation: Negative for rales, rhonchi or wheezes Cardio regular rate and regular rhythm GI normal to inspection, nondistended, normoactive bowel sounds Extremity no clubbing, cyanosis or edema Skin no rashes or lesions noted Neuro Neuro Narrative: Somnolent. Minimally responsive. Psych Mood & Affect: flat affect Lab / Micro Data 12/19/23 05:40 12/19/23 05:40 Labs: Laboratory Results - last 24 hr 12/18/23 01:50: Urine Color Yellow, Urine Clarity Clear, Urine pH 6.0, Ur Specific [place] 1.010, Urine Protein 30 H, Urine Glucose (UA) Normal, Urine Ketones 15 H, Urine Occult Blood 50 H, Urine Nitrite Negative, Urine Bilirubin Negative, Urine Urobilinogen 1 H, Ur Leukocyte Esterase Negative, Urine RBC 0 SEEN, Urine WBC 0 SEEN, Ur Squamous Epith Cells 0 SEEN, Urine Bacteria 0 SEEN, Urine Mucus 0 SEEN 12/18/23 18:20: WBC 12.0 H, RBC 2.82 L, Hgb 10.9 L, Hct 30.5 L, MCV 108.2 H, MCH 38.7 H, MCHC 35.7, RDW Std Deviation 60.4 H, RDW Coeff of Amanda 15.1 H, Plt Count 80 L, MPV 12.3 H, Immature Gran % (Auto) 0.700, Neut % (Auto) 85.5 H, Lymph % (Auto) 7.5 L, [place] % (Auto) 6.2, Eos % (Auto) 0.0, Baso % (Auto) 0.1, Absolute Neuts (auto) 10.3 H, Absolute Lymphs (auto) 0.90, Nucleated RBC % 0.6, Differential Comment SCANNED, Platelet Estimate SLT DEC, Sodium 127 L, Potassium 3.2 L, Chloride 81 L, Carbon Dioxide 21.0, Anion Gap 25 H, BUN 89 H, Creatinine 3.23 H, Estim Creat Clear Calc 24.96, Est GFR (MDRD) Af Amer 26 L, Est GFR (MDRD) Non-Af 22 L, BUN/Creatinine Ratio 27.6 H, Glucose 199 H, Lactic Acid 7.4 H*, Calcium 6.6 L, Total Bilirubin 2.40 H, AST 463 H, ALT 125 H, Alkaline Phosphatase 193 H, Troponin I High Sens 223 H*, Total Protein 5.6 L, Albumin 2.6 L, Globulin 3.0, Albumin/Globulin Ratio 0.9, Ethyl Alcohol 115.0, Blood Type A POSITIVE, Antibody Screen NEGATIVE, Crossmatch See Detail 12/18/23 23:40: Lactic Acid 6.2 H*, Troponin I High Sens 213 H* 12/19/23 05:40: WBC 11.2 H, RBC 2.88 L, Hgb 10.3 L, Hct 28.5 L, MCV 99.0 H D, M CH 35.8 H, MCHC 36.1 H, RDW Std Deviation 71.1 H, RDW Coeff of [place] 19.6 H, Plt Count 57 L, MPV 12.7 H, Immature Gran % (Auto) 1.400 H, Neut % (Auto) 85.9 H, L ymph % (Auto) 7.1 L, [place] % (Auto) 5.4, Eos % (Auto) 0.0, Baso % (Auto) 0.2, A bsolute Neuts (auto) 9.6 H, Absolute Lymphs (auto) 0.80 L, Nucleated RBC % 0.3, Sodium 135 L, Potassium 3.3 L, Chloride 96 L, Carbon Dioxide 26.0, Anion Gap 13, BUN 72 H, Creatinine 1.96 H, Estim Creat Clear Calc 41.14, Est GFR (MDRD) Af Amer 47 L, Est GFR (MDRD) Non-Af 39 L, BUN/Creatinine Ratio 36.7 H, Glucose 122 H, Calcium 6.7 L, Phosphorus 2.9, Magnesium 1.2 L, Total Bilirubin 1.90 H, AST 189 H, ALT 68 H, Alkaline Phosphatase 134 H, Total Protein 4.4 L, Albumin 2.1 L, Globulin 2.3, Albumin/Globulin Ratio 0.9, TSH 0.78 Micro: Microbiology 12/18/23 18:20 Stool Stool Occult Blood (LISANDRA) - Final Occult Blood Positive ABG Data ABG results: ABG 12/19/23 00:38 Specimen Type PRIYANK Sample Site Not entered VBG pH 7.44 H VBG pO2 29 VBG HCO3 22 VBG Total CO2 23 VBG O2 Sat (Calc) 60 VBG Base Excess -2 L POC Mix VBG pCO2 Pt Tmp 31.8 L O2 Delivery Device Not entered Imaging Radiology Impression Abdomen/Pelvis CTA 12/18/23 18:49 IMPRESSION: 1. Minimal calcification of distal abdominal aorta however no evidence of aneurysmal dilatation dissection or vascular occlusion. 2. Normal appearance of the celiac SMA and JOHN. Normal appearance of the renal arteries bilaterally. 3. No masses bowel obstruction abscess free fluid or free air. There is mild wall thickening of the ascending colon and transverse colon. Mild colitis is a consideration. No masses or areas of abnormal enhancement. 4. Hepatic steatosis without hepatic masses. 5. No evidence cholelithiasis or duct dilatation. 6. No evidence of renal calcifications or obstructive uropathy. Electronically Signed: Ayo Ross MD at 20:30 EDT , Chest X-Ray 12/18/23 19:50 IMPRESSION: 1. No evidence of acute cardiac pulmonary process. 2. Subcutaneous before AICD system/defibrillator without change. Electronically Signed: Ayo Ross MD at 20:20 EDT , Charges/Coding Procedures Hospitalists Procedures: 22087 Critical Care 1st Hr
[2023-12-19 07:34] LABS: Differential Comment SCANNED
[2023-12-19 07:35] LABS: Anisocytosis 2+; Platelet Estimate MKD DEC (ADEQ)
[2023-12-19] MEDS: Magnesium Sulfate 2 GM in Dextrose 5%-Water (100mL Bag) 100 ML IV (08:13)
[2023-12-19] MEDS: CHLORHEXIDINE GLUC 2% CLOTH 1 EACH TOWELETTE TOPICAL (08:13)
[2023-12-19 09:22] LABS: International Normalized Ratio 1.2; Prothrombin Time (Protime)PT. 15.1 SECONDS (11.7-14.9)
[2023-12-19 09:23] LABS: Partial Thromboplast Time 26.6 Seconds (24.1-36.2)
[2023-12-19] MEDS: Potassium Chloride IVPB 40 MEQ 100 MEQ IV BOLUS ×4 (09:27→12:30)
[2023-12-19 09:30] LABS: Procalcitonin 1.04 ng/mL (0.00-0.09)
[2023-12-19] MEDS: Folic Acid 1 MG in 0.9% Normal Saline (50mL Bag) 50 ML 200 MG IV (09:35)
[2023-12-19] MEDS: Thiamine Hydrochloride 200 MG in 0.9% Normal Saline (50mL Bag) 50 ML IV (09:48)
--- NOTE | 2023-12-19 11:12 | CASEMGMT ---
JI MARTIN attempted assessment, pt unable to complete. Spoke with pt nurse who states that pt medications have been adjusted and he will hopefully be more oriented soon. JI MARTIN to complete assessment at a later time. Sig other listed on demographic sheet. Will await to see if pt can participate in assessment.
--- NOTE | 2023-12-19 11:15 | RAD_ITS ---
STUDY: X-RAY CHEST REASON FOR EXAM: Male, 48 years old. picc placement; ready now TECHNIQUE: Single AP portable view of the chest. COMPARISON: Comparison is made with prior study dated December 18, 2023. FINDINGS: A right-sided PICC line catheter has been placed. The tip is in the right atrium. EKG electrodes are seen. Implanted fibrillator device is once again seen. The lungs are clear and expanded. There is no demonstrated pleural abnormality. Normal size heart. Normal mediastinum and mel. Normal visualized pulmonary arteries. Normal visualized aortic arch and descending thoracic aorta. Normal visualized thoracic spine. Healed right rib fracture. There is no demonstrated abnormality of the visualized soft tissue structures of the upper abdomen. RAD/CXR for Line Placement IMPRESSION: The tip of the right PICC line catheter is in the right atrium. Electronically Signed: Henrik Gtz MD at 12:19 EDT ,
--- NOTE | 2023-12-19 11:26 | PCM.OP.PRO ---
Procedure Report Date of Procedure: 12/19/23 Assessment & Plan Assessment/Plan (1) Acute hypotension: Procedures Radiology Radiology Access Procedures: PICC Procedure Time Out Time Out Informed consent given: Yes Consent signed: Yes Time out checklist: patient, procedure, site marked/identified, positioning of patient, supplies available and allergies confirmed Time out staff in room: Yes Time out verified: Yes Time out date: 12/19/23 Time out time: 10:15 PICC Line Consent Screening tool completed:: Yes Consent obtained:: Yes Consent given by (patient or responsible alliance party):: PATIENT'S SIGNIFICANT OTHER Line successful (if no, document why in comments):: Yes Insertion Reason for Insertion: CONTINUOUS VESICANT Date of Insertion: 12/19/23 Ok to use: Yes Type of PICC inserted: Dual Power PICC PICC Lot #: [id number] PICC Reference #: [id number] Microintroducer Used: Yes (in kit) Ultrasound/Equipment Used: Probe Cover Kit Trimmed Length (cm): 43 Insertion Length (cm): 43 Exposed Length (cm): 0 Tip Placement: Caval Atrial Junction Placement Confirmation: Xray Insertion Vein: Right Basilic Insertion Attempts: 1 Local Anesthesia Used: Lidocaine 1% (in kit) Dressing Applied: Statlock and Tegaderm CHG Arm Measurement above site (in cm): 25 Patient Tolerated Procedure: Well Threading Difficulties: No Comments Comment: Patient identity was verified with two patient identifiers. Informed consent was obtained and time-out was completed. Hands were sanitized. The patient was positioned supine with right arm at 90 degrees. The patient's upper arm vasculature was assessed using ultrasound. Patency of the right basilic vein was confirmed and the vein was externally marked. An external measurement was obtained of 43 cm. External leads were applied to the patient's right upper chest and laterally and inferior of the umbilicus on the mid axillary line. Cap, mask, and prep gloves were donned. The underdrape was placed under the patient's arm. The site was prepped with chlorhexidine, and tourniquet was loosely applied. Prep gloves were discarded, and hands were sanitized. The sterile kit was opened with additional supplies dropped in. Sterile gown and gloves were donned, and the patient was draped. The sterile kit was assembled with needle, introducer, needless connectors, and each catheter lumen flushed with sterile normal saline. The marked site of insertion was anesthetized with 1% lidocaine from the kit. Patient tolerated well. The right basilic vein was then accessed using ultrasound guidance and guidewire was inserted to safety lynette. The tourniquet was released. The access needle was removed while securing the guidewire in place. The site was again anesthetized with 1% lidocaine, prior to insertion of introducer sheath and dilator. Patient tolerated the insertion well. The catheter was trimmed to a length of 43 cm. Using 3C guidance, the catheter was then inserted through the introducer sheath, slowly. There was no resistance on insertion. The catheter followed the expected course of the vessel using 3CG tracking. The introducer sheath was retracted and peeled away, incrementally, while keeping the catheter secured. The trimmed catheter was inserted to an insertion length of 43 cm, leaving 0 cm external. The stylet was removed. A flushed needleless connector was attached to the lumen. Aspiration of the lumen was performed to remove any air and confirm blood return. Blood return was verified and each lumen was flushed with 10 ml of sterile normal saline in a pulsatile fashion. The each lumen was clamped with the last pulsed flush. Total sterile flushes used for the insertion was 7 10 ml syringes, 2 from the kit. Finally, the insertion site was cleaned with chlorhexidine, and the catheter was secured using a StatLock. The site was covered with a Tegaderm CHG Dressing and disinfecting caps were applied. Baseline arm circumference was obtained at the insertion site and measured 25 cm. The patient was provided with a patient education handout on PICC line care of infection prevention, heavy lifting restriction, maintaining mobility, and watching for any signs of infection. A chest x-ray was obtained to verify placement and demonstrates that the tip lies in the right atrium. The PICC line was withdrawn 2 cm, leaving 2 cm external. Sterile dressing change was performed. The primary nurse is aware that the PICC line is ready for use.
--- NOTE | 2023-12-19 15:08 | CASEMGMT ---
Social Work- SW met with pt mom per request, as mom was tearful and distraught about pt lack of care for self. Pt mom states that pt stated that he is tired of life as admit. Pt mom states that he has undiagnosed anxiety and depression and has been heavily drinking for 2+ years. Pt mom reports that pt has been drinking since he was a teenager, however, since becoming disabled 5ish years ago, he began increasing in amount of alcohol consumed. Pt mom states that pt daughter, aged 18, severed all ties with him last April, which has increased depression. Pt mom states that pt lives alone and has let his apartment go and it is now in poor condition. Previously, pt kept good care of home and gardened. Pt has SO who does not live with him and who does no use substances. Pt has remarked that he doesn't have anything to do during the day and feels pt would benefit from feeling like he has a sense of purpose. Pt mom reports that family has all blocked pt, as he calls them all hours of the night when he is drinking. Pt often sleeps during the day and is awake all night. Pt mom reports that pt drinks a bottle of whiskey every other day. Pt mom believes that pt may be using drugs recently as well. Pt mom would like pt to receive treatment for substance use including RAMP and inpatient at discharge. Pt mom inquired about options to make pt receive treatment. SW provided education on JENNIFER, addiction, treatment, withdrawal management, and programs, as well as legal means by which family members may make decisions. SW provided support and active, empathetic listening. SW to remain available to follow. LAUREN Goodson
--- NOTE | 2023-12-19 16:37 | PN.GI_ITS ---
Subjective Subjective Patient has been out of it most of the day. He did undergo an emergent upper endoscopy yesterday for an acute upper GI bleed. He had 2.5 L of blood and fluid removed from his stomach. 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 Objective Data Objective Data Vital Signs: Vital Signs Temp Pulse Resp BP Pulse Ox O2 Del Method O2 Flow Rate 100.6 F H 92 24 H 90/70 98 Nasal Cannula 2 12/19/23 10:00 12/19/23 10:00 12/19/23 10:12/19/23 10:00 12/19/23 11:24 12/19/23 11:24 12/19/23 11:24 Oxygen Flow Rate (L/min) 2 Oxygen Delivery Method Nasal Cannula Weight: 151 lb 7.321 oz Body Mass Index (BMI) 24.3 Intake & Output: Intake and Output for Last 24 Hours 12/17/23 12/18/23 12/19/23 23:59 23:59 23:59 Intake Total 2350 / 2350 3166.5333 / 3166.5333 Output Total 2875 / 2875 Balance 2350 / 2350 291.5333 / 291.5333 Lab / Micro Data 12/19/23 05:40 12/19/23 05:40 Labs: Laboratory Results - last 24 hr 12/18/23 01:50: Urine Color Yellow, Urine Clarity Clear, Urine pH 6.0, Ur Specific [place] 1.010, Urine Protein 30 H, Urine Glucose (UA) Normal, Urine Ketones 15 H, Urine Occult Blood 50 H, Urine Nitrite Negative, Urine Bilirubin Negative, Urine Urobilinogen 1 H, Ur Leukocyte Esterase Negative, Urine RBC 0 SEEN, Urine WBC 0 SEEN, Ur Squamous Epith Cells 0 SEEN, Urine Bacteria 0 SEEN, Urine Mucus 0 SEEN 12/18/23 18:20: WBC 12.0 H, RBC 2.82 L, Hgb 10.9 L, Hct 30.5 L, MCV 108.2 H, MCH 38.7 H, MCHC 35.7, RDW Std Deviation 60.4 H, RDW Coeff of Amanda 15.1 H, Plt Count 80 L, MPV 12.3 H, Immature Gran % (Auto) 0.700, Neut % (Auto) 85.5 H, Lymph % (Auto) 7.5 L, [place] % (Auto) 6.2, Eos % (Auto) 0.0, Baso % (Auto) 0.1, Absolute Neuts (auto) 10.3 H, Absolute Lymphs (auto) 0.90, Nucleated RBC % 0.6, Differential Comment SCANNED, Platelet Estimate SLT DEC, Sodium 127 L, Potassium 3.2 L, Chloride 81 L, Carbon Dioxide 21.0, Anion Gap 25 H, BUN 89 H, Creatinine 3.23 H, Estim Creat Clear Calc 24.96, Est GFR (MDRD) Af Amer 26 L, Est GFR (MDRD) Non-Af 22 L, BUN/Creatinine Ratio 27.6 H, Glucose 199 H, Lactic Acid 7.4 H*, Calcium 6.6 L, Total Bilirubin 2.40 H, AST 463 H, ALT 125 H, Alkaline Phosphatase 193 H, Troponin I High Sens 223 H*, Total Protein 5.6 L, Albumin 2.6 L, Globulin 3.0, Albumin/Globulin Ratio 0.9, Ethyl Alcohol 115.0, Blood Type A POSITIVE, Antibody Screen NEGATIVE, Crossmatch See Detail 12/18/23 23:40: Lactic Acid 6.2 H*, Troponin I High Sens 213 H* 12/19/23 05:40: WBC 11.2 H, RBC 2.88 L, Hgb 10.3 L, Hct 28.5 L, MCV 99.0 H D, M CH 35.8 H, MCHC 36.1 H, RDW Std Deviation 71.1 H, RDW Coeff of Amanda 19.6 H, Plt Count 57 L, MPV 12.7 H, Immature Gran % (Auto) 1.400 H, Neut % (Auto) 85.9 H, L ymph % (Auto) 7.1 L, [place] % (Auto) 5.4, Eos % (Auto) 0.0, Baso % (Auto) 0.2, A bsolute Neuts (auto) 9.6 H, Absolute Lymphs (auto) 0.80 L, Nucleated RBC % 0.3, Differential Comment SCANNED, Platelet Estimate MKD DEC, Anisocytosis 2+, Sodium 135 L, Potassium 3.3 L, Chloride 96 L, Carbon Dioxide 26.0, Anion Gap 13, BUN 72 H, Creatinine 1.96 H, Estim Creat Clear Calc 41.14, Est GFR (MDRD) Af Amer 47 L, Est GFR (MDRD) Non-Af 39 L, BUN/Creatinine Ratio 36.7 H, Glucose 122 H, Calcium 6.7 L, Phosphorus 2.9, Magnesium 1.2 L, Total Bilirubin 1.90 H, AST 189 H, ALT 68 H, Alkaline Phosphatase 134 H, Total Protein 4.4 L, Albumin 2.1 L, Globulin 2.3, Albumin/Globulin Ratio 0.9, TSH 0.78 12/19/23 08:45: PT 15.1 H, INR 1.2, APTT 26.6, Procalcitonin 1.04 H Micro: Microbiology 12/18/23 18:20 Stool Stool Occult Blood (LISANDRA) - Final Occult Blood Positive ABG Data ABG results: ABG 12/19/23 00:38 Specimen Type PRIYANK Sample Site Not entered VBG pH 7.44 H VBG pO2 29 VBG HCO3 22 VBG Total CO2 23 VBG O2 Sat (Calc) 60 VBG Base Excess -2 L POC Mix VBG pCO2 Pt Tmp 31.8 L O2 Delivery Device Not entered Radiography Diagnostic Testing: Radiology Impression Abdomen/Pelvis CTA 12/18/23 18:49 IMPRESSION: 1. Minimal calcification of distal abdominal aorta however no evidence of aneurysmal dilatation dissection or vascular occlusion. 2. Normal appearance of the celiac SMA and JOHN. Normal appearance of the renal arteries bilaterally. 3. No masses bowel obstruction abscess free fluid or free air. There is mild wall thickening of the ascending colon and transverse colon. Mild colitis is a consideration. No masses or areas of abnormal enhancement. 4. Hepatic steatosis without hepatic masses. 5. No evidence cholelithiasis or duct dilatation. 6. No evidence of renal calcifications or obstructive uropathy. Electronically Signed: Ayo Ross MD at 20:30 EDT , Chest X-Ray 12/18/23 19:50 IMPRESSION: 1. No evidence of acute cardiac pulmonary process. 2. Subcutaneous before AICD system/defibrillator without change. Electronically Signed: Ayo Ross MD at 20:20 EDT , Chest X-Ray 12/19/23 11:15 IMPRESSION: The tip of the right PICC line catheter is in the right atrium. Electronically Signed: Henrik Gtz MD at 12:19 EDT , Physical Exam Const Constitutional Narrative: The patient is very lethargic but wakes up to stimulus. HEENT normocephalic and head/scalp atraumatic HEENT Narrative: Dry mucous membranes. Poor dentition. Eyes PERRL Neck supple General: trachea midline Chest inspection of chest normal Resp normal respiratory effort Auscultation: Negative for rales, rhonchi or wheezes Cardio regular rate and regular rhythm GI normal to inspection, nondistended, normoactive bowel sounds Extremity no clubbing, cyanosis or edema Skin no rashes or lesions noted Neuro Neuro Narrative: Somnolent. Minimally responsive. Psych Mood & Affect: flat affect Assessment & Plan Assessment/Plan (1) Alcoholic hepatitis: QUALIFIERS: Ascites presence: unspecified Qualified Code(s): K 70.10 - Alcoholic hepatitis without ascites PLAN: His labs are consistent with alcoholic hepatitis. His alcohol level currently is 110. He will be given phenobarbital. His Madrey score is 32. He cannot be given steroids due to his acute upper GI bleed. 12/19/2023-his Omaira is getting better. It is down to 24. He is not a steroid candidate. He is not exhibiting any signs of worsening alcoholic hepatitis at this time. (2) Alcoholic cirrhosis of liver: QUALIFIERS: Ascites presence: unspecified Qualified Code(s): K 70.30 - Alcoholic cirrhosis of liver without ascites PLAN: Likely alcoholic cirrhosis by his lab work and imaging there is suspicious for cirrhosis. He does have hepatosplenomegaly on imaging. Coupled with his thrombocytopenia in the setting of antiplatelet therapy with decompensated liver disease being upper GI bleed. He is very high risk and has a very high mortality. He does not have any sign of ascites at this time. He has mild jaundice. He also has acute kidney injury that is likely secondary to ATN or prerenal azotemia from GI blood loss but also could be secondary to hepatorenal syndrome. His INR is pending. 12/19/2023-decompensated alcoholic cirrhosis. He will need to get alpha- fetoprotein and check ammonia level. No sign of ascites at this time. He is up about 4 pounds since admission yesterday. He still remains on low-dose pressor therapy. (3) Alcohol abuse: PLAN: Current alcohol level is 110. He will be receiving phenobarbital. (4) Acute hypotension: PLAN: Acute hypotension secondary to GI bleed. (5) Acute upper gastrointestinal bleeding: PLAN: He will need to undergo emergent endoscopy. He was explained alternatives, risk, benefits including not withstanding bleeding, infection, sepsis, perforation, need for emergent urgent . He will have an ASA of 3. I instructed ER to give him octreotide and ceftriaxone along with PPI drip. 12/19/2023-acute GI bleed with multiple peptic ulcers in the setting of alcoholic gastritis and aspirin usage with a history of non-ST segment elevation GA's status post history of AICD. Recent echocardiogram shows EF is 45%. Would recommend to continue to hold aspirin therapy. Continue PPI as previously ordered. If hemoglobin stays stable then diet can be advanced tomorrow. Charges/Coding Visit Charges Inpatient E&M: 19470 Subs Hosp L3
[2023-12-19] MEDS: Phenobarbital 32.4 MG Tablet 64.8 MG PO ×2 (17:12→21:35)
[2023-12-20] VITALS (27 sets, daily range): BP systolic 85–145; BP diastolic 53–106; PULSE 92–138; RESP 18–31; TEMP 37.8–38.5; O2SAT 90–100; BMI 23.6
[2023-12-20] MEDS: Pantoprazole Sodium 80 MG in 0.9% Normal Saline (100mL Bag) 80 ML 10 MG CONT INF ×3 (00:01→14:41)
[2023-12-20] MEDS: Phenobarbital 32.4 MG Tablet 64.8 MG PO ×6 (01:34→21:16)
[2023-12-20] MEDS: Piperacil/Tazobactam 3.375 GM in 0.9% Normal Saline (50mL MB+) 50 ML IV ×3 (05:41→21:16)
[2023-12-20 06:20] LABS: Absolute Lymphocyte Count 0.87 X10^3/uL (0.83-4.51); Basophil# 0.01 X10^3/uL; Basophil% 0.1 % (0-1); Eosinophil# 0.01 X10^3/uL; Eosinophils% 0.1 % (0-5); Hematocrit 27.2 % (40-54); Hemoglobin 9.4 g/dL (13.0-16.5); Lymphocyte # 0.87 X10^3/ul (0.83-4.51); Lymphocyte % 8.9 % (19-41); Mean Corp Hgb Conc 34.6 g/dL (32-36); Mean Corpuscular Hgb 35.3 pg (27.0-32.0); Mean Corpuscular Volume 102.3 fL (80-94); Mean Platelet Vol. 12.6 fl (6.2-12.0); Monocyte# 0.81 X10^3/uL; Monocyte% 8.3 % (0-10); NRBC Flagged by Analyzer 0.2 % (0-5); Neutrophil # 7.95 X10^3/uL (2.7-7.7); Neutrophil % 81.2 % (47-70); POSITIVE COUNT YES; POSITIVE MORPHOLOGY YES; Platelet Count 59 K/mm3 (150-450); RBC Distribution Width CV 20.6 % (11.6-14.6); RBC Distribution Width SD 77.4 fl (35.1-43.9); Red Blood Count 2.66 M/mm3 (4.6-6.2); White Blood Count 9.8 K/mm3 (4.4-11.0)
[2023-12-20 06:36] LABS: Differential Indicated SCAN CRITERIA MET
[2023-12-20 06:38] LABS: International Normalized Ratio 1.1; Prothrombin Time (Protime)PT. 13.7 SECONDS (11.7-14.9)
--- NOTE | 2023-12-20 06:53 | PCM.PN.INT ---
Assessment & Plan Assessment/Plan (1) Gastrointestinal hemorrhage with melena: (2) Alcoholic cirrhosis of liver: QUALIFIERS: Ascites presence: unspecified Qualified Code(s): K70.30 - Alcoholic cirrhosis of liver without ascites PLAN: Plan RECOMMENDATIONS: 1. Continue phenobarbital taper. Will add as needed Ativan as well. 2. Continue thiamine and folic acid. 3. Continue empiric antibiotics. 4. Transfuse if hemoglobin drops below 7 g/dL. 5. Continue PPI therapy. 6. Okay to advance diet from my perspective. 7. Obtain follow-up chest x-ray. IMPRESSIONS: 1. Hypotension Resolved. I do suspect that the patient's hypotension was likely multifactorial in etiology. While I agree that there was likely a hemorrhagic component to his presenting blood pressures, I believe that a component of his hypotension was related to polypharmacy, with phenobarbital and Precedex having been administered. Lastly, while an infectious process is a possibility, no definitive source of infection has yet to be identified. The patient has been weaned from vasopressor support. Nevertheless, he continues to have a fever. Cultures are currently pending, including C. difficile PCR. Will obtain follow-up chest imaging this morning as well. The patient will be continued on empiric antibiotics, pending finalized infectious workup. 2. Anemia related to upper GI bleed The patient presented to the hospital with melena in the setting of bleeding gastric ulcers, which were treated endoscopically by gastroenterology. The patient will be continued on PPI therapy as ordered. Otherwise, continue to monitor blood counts and transfuse if hemoglobin drops below 7 g/dL. 3. Acute kidney injury Resolved. Most likely prerenal in etiology. The patient's creatinine has improved with volume expansion. Will continue to monitor urine output for now. There is no current indication for renal replacement therapy. 4. Elevated troponin Most likely related to demand ischemia in the setting of presenting anemia and melena. Continue current medical management. 5. Chronic alcohol dependency The patient has a longstanding history of alcohol dependency. The patient did have a positive alcohol level upon presentation. Plan to continue phenobarbital taper and as needed Ativan, along with thiamine and folic acid repletion. 6. History of coronary artery disease status post PCI/heart failure with preserved ejection fraction/hypertension/hyperlipidemia Complicates care, management, recovery and prognosis. Continue to hold home antihypertensives for now. Diet can be advanced today from my perspective. This note was generated with Dragon dictation software. It may contain incorrect words, spelling, and punctuation that were not noted in checking the note before signing. Subjective Subjective The patient was seen and examined at the bedside this morning. Events from the last 24 hours have been reviewed. The patient is currently febrile with a temperature of 101.2 ?F. However, he is otherwise hemodynamically stable and maintaining appropriate oxygen saturations on room air. The patient was weaned from vasopressor support last evening. Hemoglobin is stable at 9.4 g/dL. Platelet count is stable at 59,000. Nursing staff reported diarrhea overnight, for which C. difficile PCR was sent. The patient remains on a phenobarbital taper. He is much more alert and appropriately interactive this morning. He denies any abdominal pain. Objective Data Objective Data The patient's most recent lab work, culture data and imaging studies have all been personally reviewed. Stool for occult blood was positive on December 17. Blood cultures are pending. C. difficile PCR is pending. Vital Signs: Vital Signs Temp Pulse Resp BP Pulse Ox O2 Del Method O2 Flow Rate 101.2 F H 112 H 26 H 108/76 95 Room Air 2 12/20/23 05:00 12/20/23 05:00 12/20/23 05:00 12/20/23 05:00 12/20/23 05:00 12/20/23 05:00 12/19/23 11:24 Oxygen Flow Rate (L/min) 2 Oxygen Delivery Method Room Air Weight: 147 lb 4.301 oz Body Mass Index (BMI) 23.6 Intake & Output: Intake and Output for Last 24 Hours 12/18/23 12/19/23 12/20/23 23:59 23:59 23:59 Intake Total 2350 / 2350 3542.4033 / 3542.4033 150 / 150 Output Total 3275 / 3275 800 / 800 Balance 2350 / 2350 267.4033 / 267.4033 -650 / -650 Lab / Micro Data Attestation: I reviewed the patient's lab results. 12/20/23 05:45 12/20/23 05:45 Labs: Laboratory Results - last 24 hr 12/19/23 05:40: Differential Comment SCANNED, Platelet Estimate MKD DEC, Anisocytosis 2+ 12/19/23 08:45: PT 15.1 H, INR 1.2, APTT 26.6, Procalcitonin 1.04 H 12/20/23 05:45: WBC 9.8, RBC 2.66 L, Hgb 9.4 L, Hct 27.2 L, MCV 102.3 H, MCH 35.3 H, MCHC 34.6, RDW Std Deviation 77.4 H, RDW Coeff of Amanda 20.6 H, Plt Count 59 L, MPV 12.6 H, Immature Gran % (Auto) 1.400 H, Neut % (Auto) 81.2 H, Lymph % (Auto) 8.9 L, Nuckolls % (Auto) 8.3, Eos % (Auto) 0.1, Baso % (Auto) 0.1, Absolute Neuts (auto) 8.0 H, Absolute Lymphs (auto) 0.87, Nucleated RBC % 0.2, PT 13.7, INR 1.1 Micro: Microbiology 12/18/23 18:20 Stool Stool Occult Blood (LISANDRA) - Final Occult Blood Positive Radiography Diagnostic Testing: Radiology Impression Chest X-Ray 12/19/23 11:15 IMPRESSION: The tip of the right PICC line catheter is in the right atrium. Electronically Signed: Henrik Gtz MD at 12:19 EDT , Physical Exam Const alert and no apparent distress General Appearance: cooperative HEENT normocephalic and head/scalp atraumatic HEENT Narrative: Dry mucous membranes. Poor dentition. Eyes PERRL and EOMs intact bilaterally Neck supple General: trachea midline Chest inspection of chest normal Resp normal respiratory effort Effort and Inspection: tachypneic Auscultation: Negative for rales, rhonchi or wheezes Cardio S1 normal heart sound and S2 normal heart sound Rate: tachycardic GI normal to inspection, nondistended, normoactive bowel sounds Extremity no clubbing, cyanosis or edema Skin no rashes or lesions noted Neuro CN's II-XII intact bilaterally and moves all extremities Psych Mood & Affect: flat affect Charges/Coding Visit Charges Inpatient E&M: 94994 Subs Hosp L3
--- NOTE | 2023-12-20 06:54 | RAD_ITS ---
EXAM: XR CHEST, 1 VIEW CLINICAL INDICATION: Fevers TECHNIQUE: Frontal view of the chest. COMPARISON: No relevant prior studies available. FINDINGS: LUNGS AND PLEURAL SPACES: Mild right basilar airspace disease. No pneumothorax. No effusion. HEART: Unremarkable. Cardiac silhouette not enlarged. MEDIASTINUM: Central airways and mediastinal contour are unremarkable. BONES/JOINTS: Unremarkable. No acute fracture. SOFT TISSUES: Unremarkable. TUBES, LINES AND DEVICES: Right PICC with tip at cavoatrial junction. Implanted defibrillator in the left chest wall with lead overlying the sternum. RAD/Chest 1 View (Portable) IMPRESSION: Mild right basilar airspace disease. Findings may indicate atelectasis or infection. Electronically Signed: Tristan Bryant MD at 7:55 EDT ,
[2023-12-20 07:02] LABS: ALB/GLOB Ratio 0.9 RATIO (0.9-2.4); AST(SGOT) 207 U/L (15-37); Alanine Aminotransfer ALT/SGPT 56 U/L (16-61); Albumin, Serum 2.2 g/dL (3.2-5.0); Alkaline Phosphatase 181 U/L (45-117); Anion Gap 10 (5-15); BUN 32 mg/dL (7-18); BUN/Creat Ratio 33.5 RATIO (10-20); Calcium,Total 7.7 mg/dL (8.5-10.1); Chloride 104 mmol/L (98-107); Creatinine, Serum 0.95 mg/dL (0.70-1.30); EST Glomerular Filtration Rate 89 mL/min (>60); Est Glom Filt Rate - Afr Amer 108 mL/min (>60); Estimated Creatinine Clearance 84.88 ml/min; Globulin 2.4 g/dL (2.2-4.2); Glucose 94 mg/dL (74-106); Magnesium 1.8 mg/dL (1.6-2.6); Phosphorus 1.4 mg/dL (2.5-4.9); Potassium 3.2 mmol/L (3.5-5.1); Protein, Total 4.6 g/dL (6.4-8.2); Sodium Level 140 mmol/L (136-145)
[2023-12-20 07:03] LABS: Differential Comment SCANNED
[2023-12-20 07:04] LABS: Anisocytosis 1+; Bite Cell RARE; Macrocytosis 1+; Microcytosis RARE; Platelet Estimate MKD DEC (ADEQ); Stomatocyte RARE
--- NOTE | 2023-12-20 07:23 | PN.HOSP_ITS ---
Reason for Visit Reason for Visit: Diagnoses Hypocalcemia (12/18/23) Hypo-osmolality and hyponatremia (12/18/23) Hypokalemia (12/18/23) Alcohol abuse, uncomplicated (12/18/23) Old myocardial infarction (12/18/23) Hypotension, unspecified (12/18/23) Alcoholic hepatitis without ascites (12/18/23) Alcoholic cirrhosis of liver without ascites (12/18/23) Melena (12/18/23) Gastrointestinal hemorrhage, unspecified (12/18/23) Acute kidney failure, unspecified (12/18/23) Other specified abnormal findings of blood chemistry (12/18/23) Adverse effect of unspecified drugs, medicaments and biological substances, initial encounter (12/18/23) Personal history of peptic ulcer disease (12/18/23) Subjective Subjective Patient seen much more awake and interactive. Per nursing staff patient is having low-grade fever as well as diarrhea. Patient has been placing enteric precautions pending receipt of C. difficile result Objective Data Objective Data Vital Signs: Vital Signs Temp Pulse Resp BP Pulse Ox O2 Del Method O2 Flow Rate 101.1 F H 126 H 24 H 126/101 H 90 Room Air 2 12/20/23 06:00 12/20/23 06:00 12/20/23 06:00 12/20/23 06:00 12/20/23 06:00 12/20/23 06:00 12/19/23 11:24 Oxygen Flow Rate (L/min) 2 Oxygen Delivery Method Room Air Weight: 66.8 kg Body Mass Index (BMI) 23.6 Intake & Output: Intake and Output for Last 24 Hours 12/18/23 12/19/23 12/20/23 23:59 23:59 23:59 Intake Total 2350 / 2350 3542.4033 / 3542.4033 150 / 150 Output Total 3275 / 3275 800 / 800 Balance 2350 / 2350 267.4033 / 267.4033 -650 / -650 Lab / Micro Data 12/20/23 05:45 12/20/23 05:45 Labs: Laboratory Results - last 24 hr 12/19/23 05:40: Differential Comment SCANNED, Platelet Estimate MKD DEC, Anisocytosis 2+ 12/19/23 08:45: PT 15.1 H, INR 1.2, APTT 26.6, Procalcitonin 1.04 H 12/20/23 05:45: WBC 9.8, RBC 2.66 L, Hgb 9.4 L, Hct 27.2 L, MCV 102.3 H, MCH 35.3 H, MCHC 34.6, RDW Std Deviation 77.4 H, RDW Coeff of Amanda 20.6 H, Plt Count 59 L, MPV 12.6 H, Immature Gran % (Auto) 1.400 H, Neut % (Auto) 81.2 H, Lymph % (Auto) 8.9 L, [place] % (Auto) 8.3, Eos % (Auto) 0.1, Baso % (Auto) 0.1, Absolute Neuts (auto) 8.0 H, Absolute Lymphs (auto) 0.87, Nucleated RBC % 0.2, Differential Comment SCANNED, Platelet Estimate MKD DEC, Anisocytosis 1+, Microcytosis RARE, Macrocytosis 1+, Stomatocytes RARE, Bite Cells RARE, PT 13.7, INR 1.1, Sodium 140, Potassium 3.2 L, Chloride 104, Carbon Dioxide 26.0, Anion Gap 10, BUN 32 H, Creatinine 0.95, Estim Creat Clear Calc 84.88, Est GFR (MDRD) Af Amer 108, Est GFR (MDRD) Non-Af 89, BUN/Creatinine Ratio 33.5 H, Glucose 94, Calcium 7.7 L, Phosphorus 1.4 L, Magnesium 1.8, Total Bilirubin 1.50 H, AST 207 H, ALT 56, Alkaline Phosphatase 181 H, Total Protein 4.6 L, Albumin 2.2 L, Globulin 2.4, Albumin/Globulin Ratio 0.9 Micro: Microbiology 12/18/23 18:20 Stool Stool Occult Blood (LISANDRA) - Final Occult Blood Positive Radiography Diagnostic Testing: Radiology Impression Chest X-Ray 12/19/23 11:15 IMPRESSION: The tip of the right PICC line catheter is in the right atrium. Electronically Signed: Henrik Gtz MD at 12:19 EDT , Physical Exam Narrative GENERAL: Cooperative HEENT: Atraumatic; normocephalic EYES; Anicteric, Normal Conjunctiva NECK; supple, normal thyroid, RESPIRATORY: Diminished to auscultation CARDIOVASCULAR: Regular S1 S2, GI: soft, normoactive bowel sounds, : No Renal angle tenderness; EXTREMITIES: No edema, no clubbing, MUSCULOSKELETAL: no muscle wasting NEURO: no lateralizing signs. SKIN: No Rash PSYCH; flat affect Assessment & Plan Assessment/Plan (1) Gastrointestinal hemorrhage with melena: PLAN: Plan Patient is a 48-year-old gentleman with past medical history significant for alcoholic cirrhosis of the liver admitted with melena 1. Acute GI bleed ? Secondary to upper GI bleed from gastric ulcer exacerbated by patient thrombocytopenia as well as antiplatelet use. Patient underwent emergent upper EGD by Dr. White with gastroenterology was found to have Spurting gastric ulcers with a visible vessel. Injected. Treated with a heater probe. - Non- bleeding duodenal ulcers with no stigmata of bleeding. Patient currently managed in intensive care unit ? 12/20/2023; patient hemoglobin did drop to 9.4 we will continue with monitoring 2. Chronic alcohol use at risk for withdrawal ? Patient is on phenobarb and Precedex Precedex has since been discontinued 3. Hypovolemic shock ? Resuscitated with with blood transfusion and subsequently IV fluids in addition to norepinephrine ? 12/20/2023 norepinephrine has been weaned off 4.Anemia ? Secondary to acute blood loss anemia, patient was transfused. 2 unit PRBC. Monitoring H&H with plans to transfuse if patient is deemed to be symptomatic or hemoglobin falls below 7 ? 12/20/2023; hemoglobin this a.m. 9.4 we will continue with monitoring 5. Elevated troponin ? Secondary to demand ischemia patient presentation not consistent with acute coronary syndrome , 6. Coronary artery disease ? With previous STEMI with subsequent PCI with stent to LAD and RCA lesion patient is on guideline directed medical therapy. His dual antiplatelet therapy held in view of his presentation 7. Hypokalemia ? Corrected per protocol 8. Hyponatremia ? Secondary to chronic alcohol use monitoring with daily BMPs 9. Acute renal failure ? Suspected to be secondary to hepatorenal syndrome as well as volume depletion patient be resuscitated with IV fluid with monitoring of electrolyte with daily BMPs 10. Paroxysmal atrial fibrillation ? Patient not on systemic anticoagulation due to significant risk for bleeding rate remains controlled 11. Chronic disease ? Stable 12. Essential hypertension ? Patient antihypertensives on hold given his low blood pressure 13. Thrombocytopenia Secondary to chronic alcohol use 14. Tobacco dependence - Counseled on cessation, offered nicotine patch for tobacco cravings 15. Obstructive sleep apnea ? Consistent use of PAP therapy encourage 16. Asthmatic bronchitis ? Bronchodilator treatment as needed 17. Acute alcoholic transaminitis ? Monitoring LFTs 18. DVT prophylaxis ? Bilateral SCDs 19. Diarrhea ? Patient has been placed in enteric precautions while C. difficile is being ruled out Time spent in the patient's overall evaluation,decision-making process, review of diagnostic data, adjustment of management, discussion with other providers, nursing nursing and ancillary staff involved in patient's care documentation, 50 Minutes Charges/Coding Visit Charges Inpatient E&M: 03426 Subs Hosp L3
[2023-12-20] MEDS: Potassium Chloride 20mEq/100mL 20 MEQ/100 ML IV.SOLN. 100 MEQ IV BOLUS ×2 (08:51→10:02)
[2023-12-20] MEDS: Potassium Chloride Oral Tablet 20 MEQ 40 MEQ PO (08:51)
[2023-12-20] MEDS: 0.9% Normal Saline (250mL Bag) 250 ML 15 ML IV (08:52)
--- NOTE | 2023-12-20 09:34 | CASEMGMT ---
Social Work SW met w/pt in room, spoke w/pt about mental health, substance abuse, and POA. SW initially spoke w/pt about mental health. Pt states he has been diagnosed w/anxiety and depression. He states has never been in counseling. Pt states took Xanax for 10 years but it stopped working. He states he also does not have a PCP at present, and this is who used to prescribe the medication. His PCP moved to [place] and he does not have a new PCP. Pt states he has been off of it for 4-5 months, he is interested in getting on new medication for anxiety and depression. Pt denies being suicidal, denies wanting to harm himself. Pt denies any history of ever wanting to harm himself, of being suicidal. SW inquired about pt's substance abuse history. Pt states, I'm an alcoholic if you want to know the truth. Pt states drinks a fifth of [employer] daily, states drinks 7 and 7s. Pt states has been drinking since he was 17. He has been able to quit for periods of time in the past, most recently he states quit from May 12-November 10. Pt does not identify any trigger that prompted him to start drinking again, he states he just started drinking again. Pt has not been through treatment before, he is open to speaking w/Thong, pt navigator, and receiving resources. Pt states he knows he needs to stop drinking, aware of the effects on his health. Pt did mention his truck is broken down, but then also states his mother and girlfriend both drive and can get him to where he needs to go. SW also mentioned to pt that his Medicaid insurance may also provide transportation. Pt states he has not history of any other substance abuse, other than smoking marijuana. Pt states he does still plan to use marijuana. SW also spoke w/pt about POA. Pt would like to complete POA for Healthcare papers, would like to name his girlfriend as POA for healthcare. SW explained will follow up w/him about this when he is feeling a bit better, pt agreeable to this. DNAIELA remains available and will continue to follow, will ask Thong from [facility] to see pt. AMAURY Rocha
[2023-12-20] MEDS: Potassium Phosphate 30 MM in 0.9% Normal Saline (250mL Bag) 250 ML 42 MM IV (10:04)
[2023-12-20] MEDS: Thiamine Hydrochloride 200 MG in 0.9% Normal Saline (50mL Bag) 50 ML IV (10:04)
[2023-12-20] MEDS: Folic Acid 1 MG in 0.9% Normal Saline (50mL Bag) 50 ML 200 MG IV (10:04)
[2023-12-20 10:51] LABS: M R Staph aureus DNA By PCR Negative (Negative)
[2023-12-20 10:52] LABS: Probe Check PASS; Specimen Processing Control PASS
[2023-12-20] MEDS: Cyanocobalamin (B12) 1,000 MCG/ML Vial 1000 MCG IM (11:28)
[2023-12-20] MEDS: LORazepam 1 MG Tablet 2 MG PO (13:49)
[2023-12-20] MEDS: Carvedilol 25 MG Tablet PO ×2 (14:02→21:16)
--- NOTE | 2023-12-20 14:47 | CASEMGMT ---
Social Work SW spoke w/pt about LW/POA, he may want to complete POA papers while here, SW will check back when pt is feeling better. AMAURY Rocha
--- NOTE | 2023-12-20 15:36 | CASEMGMT ---
JI MARTIN into pt room, pt lying in bed with eyes closed. Attempted to waken pt and he opened his eyes but would not consent to assessment. Asked pt if he would like RN VERONICA to call his mother or sig other to answer assessment questions. Pt states Just open the jar and give it all. JI MARTIN assessment not completed at this time. Spoke to pt nurse who states pt just was given phenobarb and ativan.
[2023-12-20] MEDS: Pantoprazole Sodium 40 MG in 0.9% Normal Saline (100mL MB+) 100 ML 330 MG IV (21:16)
[2023-12-21] VITALS (27 sets, daily range): BP systolic 87–131; BP diastolic 52–91; PULSE 76–127; RESP 15–30; TEMP 36.2–38.3; O2SAT 92–100; BMI 24.0
[2023-12-21] MEDS: LORazepam 1 MG Tablet 2 MG PO ×2 (00:58→08:52)
[2023-12-21] MEDS: Phenobarbital 32.4 MG Tablet 64.8 MG PO ×3 (02:10→09:48)
[2023-12-21 04:36] LABS: Absolute Neutrophil Count 5.3 X10^3/uL (2.0-7.7); Basophil# 0.01 X10^3/uL; Basophil% 0.1 % (0-1); Eosinophil# 0.07 X10^3/uL; Hematocrit 23.4 % (40-54); Hemoglobin 7.9 g/dL (13.0-16.5); Lymphocyte % 11.8 % (19-41); Mean Corp Hgb Conc 33.8 g/dL (32-36); Mean Corpuscular Hgb 35.3 pg (27.0-32.0); Mean Corpuscular Volume 104.5 fL (80-94); Mean Platelet Vol. 12.4 fl (6.2-12.0); Monocyte# 0.55 X10^3/uL; Monocyte% 8.1 % (0-10); NRBC Flagged by Analyzer 0.6 % (0-5); Neutrophil # 5.28 X10^3/uL (2.7-7.7); Neutrophil % 77.8 % (47-70); POSITIVE COUNT YES; POSITIVE MORPHOLOGY YES; Platelet Count 58 K/mm3 (150-450); RBC Distribution Width SD 77.2 fl (35.1-43.9); Red Blood Count 2.24 M/mm3 (4.6-6.2); White Blood Count 6.8 K/mm3 (4.4-11.0)
[2023-12-21 04:44] LABS: Differential Indicated SCAN CRITERIA MET
[2023-12-21 04:57] LABS: ALB/GLOB Ratio 0.8 RATIO (0.9-2.4); AST(SGOT) 157 U/L (15-37); Alanine Aminotransfer ALT/SGPT 51 U/L (16-61); Albumin, Serum 2.1 g/dL (3.2-5.0); Alkaline Phosphatase 159 U/L (45-117); Anion Gap 7 (5-15); BUN 15 mg/dL (7-18); BUN/Creat Ratio 16.4 RATIO (10-20); Calcium,Total 7.4 mg/dL (8.5-10.1); Chloride 103 mmol/L (98-107); Creatinine, Serum 0.91 mg/dL (0.70-1.30); EST Glomerular Filtration Rate 94 mL/min (>60); Est Glom Filt Rate - Afr Amer 113 mL/min (>60); Estimated Creatinine Clearance 88.61 ml/min; Globulin 2.7 g/dL (2.2-4.2); Glucose 129 mg/dL (74-106); Potassium 3.5 mmol/L (3.5-5.1); Protein, Total 4.8 g/dL (6.4-8.2); Sodium Level 137 mmol/L (136-145)
[2023-12-21] MEDS: Piperacil/Tazobactam 3.375 GM in 0.9% Normal Saline (50mL MB+) 50 ML IV ×3 (06:02→20:40)
--- NOTE | 2023-12-21 06:58 | PCM.PN.INT ---
Assessment & Plan Assessment/Plan (1) Gastrointestinal hemorrhage with melena: (2) Alcoholic cirrhosis of liver: QUALIFIERS: Ascites presence: unspecified Qualified Code(s): K70.30 - Alcoholic cirrhosis of liver without ascites PLAN: Plan RECOMMENDATIONS: 1. Continue phenobarbital taper. Continue as needed Ativan. 2. Continue thiamine and folic acid. 3. Continue empiric antibiotics. 4. Transfuse if hemoglobin drops below 7 g/dL. 5. Continue PPI therapy. IMPRESSIONS: 1. Hypotension I do suspect that the patient's hypotension was likely multifactorial in etiology. While I agree that there was likely a hemorrhagic component to his presenting blood pressures, I believe that a component of his hypotension was related to polypharmacy, with phenobarbital and Precedex having been administered. Lastly, an evolving infectious process may also be contributing, as the patient's chest imaging from December 19 demonstrated a right basilar infiltrate. The patient has been weaned from vasopressor support. C. difficile PCR was negative. The patient will be continued on empiric antibiotics, pending finalized culture workup. 2. Anemia related to upper GI bleed The patient presented to the hospital with melena in the setting of bleeding gastric ulcers, which were treated endoscopically by gastroenterology. The patient will be continued on PPI therapy as ordered. Otherwise, continue to monitor blood counts and transfuse if hemoglobin drops below 7 g/dL. 3. Acute kidney injury Resolved. Most likely prerenal in etiology. The patient's creatinine has improved with volume expansion. Will continue to monitor urine output for now. There is no current indication for renal replacement therapy. 4. Elevated troponin Most likely related to demand ischemia in the setting of presenting anemia and melena. Continue current medical management. 5. Chronic alcohol dependency The patient has a longstanding history of alcohol dependency. The patient did have a positive alcohol level upon presentation. Plan to continue phenobarbital taper and as needed Ativan, along with thiamine and folic acid repletion. 6. History of coronary artery disease status post PCI/heart failure with preserved ejection fraction/hypertension/hyperlipidemia Complicates care, management, recovery and prognosis. Continue to hold home antihypertensives for now. This note was generated with [employer] dictation software. It may contain incorrect words, spelling, and punctuation that were not noted in checking the note before signing. Subjective Subjective The patient was seen and examined at the bedside this morning. Events from the last 24 hours have been reviewed. The patient has become more delirious over the last 24 hours and has been experiencing visual hallucinations. Nursing staff reported that he did require Ativan administration overnight. The patient's last CIWA score this morning was noted to be 14. Hemoglobin has dropped to 7.9 g/dL. Platelet count remains stable at 58,000. Total bilirubin has decreased to 1.5. Objective Data Objective Data The patient's most recent lab work, culture data and imaging studies have all been personally reviewed. Stool for occult blood was positive on December 17. C. difficile PCR was negative. Blood and urine cultures are pending. Vital Signs: Vital Signs Temp Pulse Resp BP Pulse Ox O2 Del Method O2 Flow Rate 100.3 F H 117 H 25 H 95/76 98 Room Air 2 12/21/23 06:00 12/21/23 06:00 12/21/23 06:00 12/21/23 06:00 12/21/23 06:00 12/21/23 06:00 12/19/23 11:24 Oxygen Flow Rate (L/min) 2 Oxygen Delivery Method Room Air Weight: 149 lb 7.574 oz Body Mass Index (BMI) 24.0 Intake & Output: Intake and Output for Last 24 Hours 12/19/23 12/20/23 12/21/23 23:59 23:59 23:59 Intake Total 3542.4033 / 3542.4033 1184.78 / 1284.78 387.5 / 387.5 Output Total 3275 / 3275 1650 / 2000 350 / 350 Balance 267.4033 / 267.4033 -465.22 / -715.22 37.5 / 37.5 Medical Nutrition Assessment Dietitian: Malnutrition Criteria Met Start: 12/20/23 11:52 Freq: Status: Active Protocol: Document 12/20/23 11:52 RMA (Rec: 12/20/23 11:52 RMA [id number]) Nutrition Malnutrition Evidence of Malnutrition Exists Yes Malnutrition (severe): Chronic,Social/Behavioral/ Environmental Evidenced By Suboptimal Energy Intake ( Severe),Weight Loss (Severe) Clinical Problem Chronic Disease or Condition Related Malnutrition Etiology severe protein-calorie malnutrition in the context of chronic alcohol abuse related to inadequate energy and nutrient-dense oral intake Signs/Symptoms as evidenced by greater than 25% unintentional weight loss in less than 1 year and oral intake meeting < 50% of estimated nutritional needs x last 6 months Status Active Problem Recommendation Dietitian Recommendations/Changes Continue liberalized regular diet; restrict sodium as indicated once PO established with meals. Will add 240mL ensure plus HP w/ breakfast and dinner trays. Adjust ONS as needed once PO established with meals. Lab / Micro Data Attestation: I reviewed the patient's lab results. 12/21/23 04:26 12/21/23 04:26 Labs: Laboratory Results - last 24 hr 12/20/23 05:45: Differential Comment SCANNED, Platelet Estimate MKD DEC, Anisocytosis 1+, Microcytosis RARE, Macrocytosis 1+, Stomatocytes RARE, Bite Cells RARE, Sodium 140, Potassium 3.2 L, Chloride 104, Carbon Dioxide 26.0, Anion Gap 10, BUN 32 H, Creatinine 0.95, Estim Creat Clear Calc 84.88, Est GFR (MDRD) Af Amer 108, Est GFR (MDRD) Non-Af 89, BUN/Creatinine Ratio 33.5 H, Glucose 94, Calcium 7.7 L, Phosphorus 1.4 L, Magnesium 1.8, Total Bilirubin 1.50 H, AST 207 H, ALT 56, Alkaline Phosphatase 181 H, Total Protein 4.6 L, Albumin 2.2 L, Globulin 2.4, Albumin/Globulin Ratio 0.9 12/20/23 09:10: MRSA (PCR) Negative 12/21/23 04:26: WBC 6.8, RBC 2.24 L, Hgb 7.9 L, Hct 23.4 L, MCV 104.5 H, MCH 35.3 H, MCHC 33.8, RDW Std Deviation 77.2 H, RDW Coeff of Amanda 20.0 H, Plt Count 58 L, MPV 12.4 H, Immature Gran % (Auto) 1.200 H, Neut % (Auto) 77.8 H, Lymph % (Auto) 11.8 L, [place] % (Auto) 8.1, Eos % (Auto) 1.0, Baso % (Auto) 0.1, Absolute Neuts (auto) 5.3, Absolute Lymphs (auto) 0.80 L, Nucleated RBC % 0.6, Sodium 137, Potassium 3.5, Chloride 103, Carbon Dioxide 27.0, Anion Gap 7, BUN 15, Creatinine 0.91, Estim Creat Clear Calc 88.61, Est GFR (MDRD) Af Amer 113, Est GFR (MDRD) Non-Af 94, BUN/Creatinine Ratio 16.4, Glucose 129 H, Calcium 7.4 L, Total Bilirubin 1.50 H, AST 157 H, ALT 51, Alkaline Phosphatase 159 H, Total Protein 4.8 L, Albumin 2.1 L, Globulin 2.7, Albumin/Globulin Ratio 0.8 L Micro: Microbiology 12/20/23 05:53 Stool Clostridioides difficile (PCR) - Final 12/18/23 18:20 Stool Stool Occult Blood (LISANDRA) - Final Occult Blood Positive Radiography Diagnostic Testing: Radiology Impression Chest X-Ray 12/20/23 06:54 IMPRESSION: Mild right basilar airspace disease. Findings may indicate atelectasis or infection. Electronically Signed: Tristan Bryant MD at 7:55 EDT Reading Location ID and State: [address] [place] [address] Tel , Service support , Physical Exam Const alert and no apparent distress HEENT normocephalic and head/scalp atraumatic Teeth and Gingiva: poor dentition Eyes PERRL and EOMs intact bilaterally Neck supple General: trachea midline Chest inspection of chest normal Resp normal respiratory effort Effort and Inspection: tachypneic Auscultation: Negative for rales, rhonchi or wheezes Cardio S1 normal heart sound and S2 normal heart sound Rate: tachycardic GI normal to inspection, nondistended, normoactive bowel sounds Extremity no clubbing, cyanosis or edema Skin no rashes or lesions noted Neuro CN's II-XII intact bilaterally and moves all extremities Psych Activity / Motor Behavior: restless Charges/Coding Visit Charges Inpatient E&M: 10107 Subs Hosp L2
--- NOTE | 2023-12-21 07:27 | PCM.PN.HOSP ---
Reason for Visit Reason for Visit: Diagnoses Hypocalcemia (12/18/23) Hypo-osmolality and hyponatremia (12/18/23) Hypokalemia (12/18/23) Alcohol abuse, uncomplicated (12/18/23) Old myocardial infarction (12/18/23) Hypotension, unspecified (12/18/23) Alcoholic hepatitis without ascites (12/18/23) Alcoholic cirrhosis of liver without ascites (12/18/23) Melena (12/18/23) Gastrointestinal hemorrhage, unspecified (12/18/23) Acute kidney failure, unspecified (12/18/23) Other specified abnormal findings of blood chemistry (12/18/23) Adverse effect of unspecified drugs, medicaments and biological substances, initial encounter (12/18/23) Personal history of peptic ulcer disease (12/18/23) Subjective Subjective Patient hemoglobin continues to drop. Stool for C. difficile came back negative. Patient is however hallucinating. Also did receive Ativan for agitation during the night Objective Data Objective Data Vital Signs: Vital Signs Temp Pulse Resp BP Pulse Ox O2 Del Method O2 Flow Rate 100.2 F H 115 H 27 H 102/85 H 100 Room Air 2 12/21/23 07:00 12/21/23 07:00 12/21/23 07:00 12/21/23 07:00 12/21/23 07:00 12/21/23 07:00 12/19/23 11:24 Oxygen Flow Rate (L/min) 2 Oxygen Delivery Method Room Air Weight: 67.8 kg Body Mass Index (BMI) 24.0 Intake & Output: Intake and Output for Last 24 Hours 12/19/23 12/20/23 12/21/23 23:59 23:59 23:59 Intake Total 3542.4033 / 3542.4033 1184.78 / 1284.78 387.5 / 387.5 Output Total 3275 / 3275 1650 / 2000 350 / 350 Balance 267.4033 / 267.4033 -465.22 / -715.22 37.5 / 37.5 Medical Nutrition Assessment Dietitian: Malnutrition Criteria Met Start: 12/20/23 11:52 Freq: Status: Active Protocol: Document 12/20/23 11:52 RMA (Rec: 12/20/23 11:52 RMA [id number]) Nutrition Malnutrition Evidence of Malnutrition Exists Yes Malnutrition (severe): Chronic,Social/Behavioral/ Environmental Evidenced By Suboptimal Energy Intake ( Severe),Weight Loss (Severe) Clinical Problem Chronic Disease or Condition Related Malnutrition Etiology severe protein-calorie malnutrition in the context of chronic alcohol abuse related to inadequate energy and nutrient-dense oral intake Signs/Symptoms as evidenced by greater than 25% unintentional weight loss in less than 1 year and oral intake meeting < 50% of estimated nutritional needs x last 6 months Status Active Problem Recommendation Dietitian Recommendations/Changes Continue liberalized regular diet; restrict sodium as indicated once PO established with meals. Will add 240mL ensure plus HP w/ breakfast and dinner trays. Adjust ONS as needed once PO established with meals. Lab / Micro Data 12/21/23 04:26 12/21/23 04:26 Labs: Laboratory Results - last 24 hr 12/20/23 09:10: MRSA (PCR) Negative 12/21/23 04:26: WBC 6.8, RBC 2.24 L, Hgb 7.9 L, Hct 23.4 L, MCV 104.5 H, MCH 35.3 H, MCHC 33.8, RDW Std Deviation 77.2 H, RDW Coeff of Amanda 20.0 H, Plt Count 58 L, MPV 12.4 H, Immature Gran % (Auto) 1.200 H, Neut % (Auto) 77.8 H, Lymph % (Auto) 11.8 L, [place] % (Auto) 8.1, Eos % (Auto) 1.0, Baso % (Auto) 0.1, Absolute Neuts (auto) 5.3, Absolute Lymphs (auto) 0.80 L, Nucleated RBC % 0.6, Sodium 137, Potassium 3.5, Chloride 103, Carbon Dioxide 27.0, Anion Gap 7, BUN 15, Creatinine 0.91, Estim Creat Clear Calc 88.61, Est GFR (MDRD) Af Amer 113, Est GFR (MDRD) Non-Af 94, BUN/Creatinine Ratio 16.4, Glucose 129 H, Calcium 7.4 L, Total Bilirubin 1.50 H, AST 157 H, ALT 51, Alkaline Phosphatase 159 H, Total Protein 4.8 L, Albumin 2.1 L, Globulin 2.7, Albumin/Globulin Ratio 0.8 L Micro: Microbiology 12/20/23 05:53 Stool Clostridioides difficile (PCR) - Final 12/18/23 18:20 Stool Stool Occult Blood (LISANDRA) - Final Occult Blood Positive Radiography Diagnostic Testing: Radiology Impression Chest X-Ray 12/20/23 06:54 IMPRESSION: Mild right basilar airspace disease. Findings may indicate atelectasis or infection. Electronically Signed: Tristan Bryant MD at 7:55 EDT Reading Location ID and State: [facility] / [place] Tel , Service support , Physical Exam Narrative GENERAL: In no apparent distress HEENT: Atraumatic; normocephalic EYES; Anicteric, Normal Conjunctiva NECK; supple, normal thyroid, RESPIRATORY: Diminished to auscultation CARDIOVASCULAR: Regular S1 S2, GI: soft, normoactive bowel sounds, : No Renal angle tenderness; EXTREMITIES: No edema, no clubbing, MUSCULOSKELETAL: no muscle wasting NEURO: no lateralizing signs. SKIN: No Rash PSYCH; flat affect Assessment & Plan Assessment/Plan (1) Gastrointestinal hemorrhage with melena: PLAN: Plan Patient is a 48-year-old gentleman with past medical history significant for alcoholic cirrhosis of the liver admitted with melena 1. Acute GI bleed ? Secondary to upper GI bleed from gastric ulcer exacerbated by patient thrombocytopenia as well as antiplatelet use. Patient underwent emergent upper EGD by Dr. White with gastroenterology was found to have Spurting gastric ulcers with a visible vessel. Injected. Treated with a heater probe. - Non-bleeding duodenal ulcers with no stigmata of bleeding. Patient currently managed in intensive care unit ? 12/20/2023; patient hemoglobin did drop to 9.4 we will continue with monitoring ? 12/20/patient hemoglobin down to 7.9 2. Chronic alcohol use at risk for withdrawal ? Patient is on phenobarb and Precedex Precedex has since been discontinued ? 12/21/2023; patient remains on phenobarb taper. Did experience agitation necessitating patient being given Ativan during the night to 3. Hypovolemic shock ? Resuscitated with with blood transfusion and subsequently IV fluids in addition to norepinephrine ? 12/20/2023 norepinephrine has been weaned off 4.Anemia ? Secondary to acute blood loss anemia, patient was transfused. 2 unit PRBC. Monitoring H&H with plans to transfuse if patient is deemed to be symptomatic or hemoglobin falls below 7 ? 12/20/2023; hemoglobin this a.m. 9.4 we will continue with monitoring ? 12/21/2023; hemoglobin down to 7.9 5. Elevated troponin ? Secondary to demand ischemia patient presentation not consistent with acute coronary syndrome , 6. Coronary artery disease ? With previous STEMI with subsequent PCI with stent to LAD and RCA lesion patient is on guideline directed medical therapy. His dual antiplatelet therapy held in view of his presentation 7. Hypokalemia ? Corrected per protocol 8. Hyponatremia ? Secondary to chronic alcohol use monitoring with daily BMPs 9. Acute renal failure ? Suspected to be secondary to hepatorenal syndrome as well as volume depletion patient be resuscitated with IV fluid with monitoring of electrolyte with daily BMPs 10. Paroxysmal atrial fibrillation ? Patient not on systemic anticoagulation due to significant risk for bleeding rate remains controlled 11. Chronic disease ? Stable 12. Essential hypertension ? Patient antihypertensives on hold given his low blood pressure 13. Thrombocytopenia Secondary to chronic alcohol use 14. Tobacco dependence - Counseled on cessation, offered nicotine patch for tobacco cravings 15. Obstructive sleep apnea ? Consistent use of PAP therapy encourage 16. Asthmatic bronchitis ? Bronchodilator treatment as needed 17. Acute alcoholic transaminitis ? Monitoring LFTs 18. DVT prophylaxis ? Bilateral SCDs 19. Diarrhea ? Patient has been placed in enteric precautions while C. difficile is being ruled out ? 12/21/2023 stool for C. difficile came back negative isolation discontinued Time spent in the patient's overall evaluation,decision-making process, review of diagnostic data, adjustment of management, discussion with other providers, nursing nursing and ancillary staff involved in patient's care documentation, 50 Minutes Charges/Coding Visit Charges Inpatient E&M: [id number] [place] [id number]
[2023-12-21] MEDS: Carvedilol 25 MG Tablet PO ×2 (07:39→19:42)
[2023-12-21] MEDS: Pantoprazole Sodium 40 MG in 0.9% Normal Saline (100mL MB+) 100 ML 330 MG IV ×2 (07:50→20:40)
[2023-12-21] MEDS: 0.9% Normal Saline (250mL Bag) 250 ML 15 ML IV (07:52)
[2023-12-21] MEDS: Folic Acid 1 MG Tablet PO (09:29)
[2023-12-21] MEDS: Thiamine Hydrochloride 100 MG Tablet PO (09:29)
[2023-12-21] MEDS: LORazepam 2 MG/ML Syringe IV (09:57)
[2023-12-21] MEDS: 0.9% Saline Lock 10 ML Syringe IV (10:03)
--- NOTE | 2023-12-21 10:42 | CASEMGMT ---
RN CM NOTE: RN CM noted on CIWA that pt is oriented this AM. RN CM about to enter his room to complete initial RN CM assessment, but pt's RN, Arelis, asked RN VERONICA to not enter room. Pt remains very restless. Noted pt received Ativan during the night d/t agitation. RN CM assessment to be completed at a later time. Dajuan BSN JI MARTIN
--- NOTE | 2023-12-21 12:25 | CASEMGMT ---
Social Work Pt is not fully alert and oriented at this time. SW will follow up when appropriate as time allows in regard to LW/POA. AMAURY Rocha
[2023-12-21] MEDS: dexMEDEtomidine 400 MCG in 0.9% Normal Saline (100mL Bag) 96 ML 8.5 MCG CONT INF (13:43)
--- NOTE | 2023-12-21 17:07 | PN.GI_ITS ---
Subjective Subjective Patient is going through withdrawal at this time. He is not able to give history as he is hallucinating. Objective Data Objective Data Vital Signs: Vital Signs Temp Pulse Resp BP Pulse Ox O2 Del Method O2 Flow Rate 97.6 F L 88 25 H 91/71 95 Room Air 2 12/21/23 12:00 12/21/23 16:00 12/21/23 16:00 12/21/23 16:00 12/21/23 16:00 12/21/23 16:00 12/19/23 11:24 Oxygen Flow Rate (L/min) 2 Oxygen Delivery Method Room Air Weight: 149 lb 7.574 oz Body Mass Index (BMI) 24.0 Intake & Output: Intake and Output for Last 24 Hours 12/19/23 12/20/23 12/21/23 23:59 23:59 23:59 Intake Total 3542.4033 / 3542.4033 1184.78 / 1284.78 595.43 / 595.43 Output Total 3275 / 3275 1650 / 2000 350 / 350 Balance 267.4033 / 267.4033 -465.22 / -715.22 245.43 / 245.43 Medical Nutrition Assessment Dietitian: Malnutrition Criteria Met Start: 12/20/23 11:52 Freq: Status: Active Protocol: Document 12/20/23 11:52 RMA (Rec: 12/20/23 11:52 RMA [id number]) Nutrition Malnutrition Evidence of Malnutrition Exists Yes Malnutrition (severe): Chronic,Social/Behavioral/ Environmental Evidenced By Suboptimal Energy Intake ( Severe),Weight Loss (Severe) Clinical Problem Chronic Disease or Condition Related Malnutrition Etiology severe protein-calorie malnutrition in the context of chronic alcohol abuse related to inadequate energy and nutrient-dense oral intake Signs/Symptoms as evidenced by greater than 25% unintentional weight loss in less than 1 year and oral intake meeting < 50% of estimated nutritional needs x last 6 months Status Active Problem Recommendation Dietitian Recommendations/Changes Continue liberalized regular diet; restrict sodium as indicated once PO established with meals. Will add 240mL ensure plus HP w/ breakfast and dinner trays. Adjust ONS as needed once PO established with meals. Lab / Micro Data 12/21/23 04:26 12/21/23 04:26 Labs: Laboratory Results - last 24 hr 12/21/23 04:26: WBC 6.8, RBC 2.24 L, Hgb 7.9 L, Hct 23.4 L, MCV 104.5 H, MCH 35.3 H, MCHC 33.8, RDW Std Deviation 77.2 H, RDW Coeff of Amanda 20.0 H, Plt Count 58 L, MPV 12.4 H, Immature Gran % (Auto) 1.200 H, Neut % (Auto) 77.8 H, Lymph % (Auto) 11.8 L, [place] % (Auto) 8.1, Eos % (Auto) 1.0, Baso % (Auto) 0.1, Absolute Neuts (auto) 5.3, Absolute Lymphs (auto) 0.80 L, Nucleated RBC % 0.6, Sodium 137, Potassium 3.5, Chloride 103, Carbon Dioxide 27.0, Anion Gap 7, BUN 15, Creatinine 0.91, Estim Creat Clear Calc 88.61, Est GFR (MDRD) Af Amer 113, Est GFR (MDRD) Non-Af 94, BUN/Creatinine Ratio 16.4, Glucose 129 H, Calcium 7.4 L, T otal Bilirubin 1.50 H, AST 157 H, ALT 51, Alkaline Phosphatase 159 H, Total Protein 4.8 L, Albumin 2.1 L, Globulin 2.7, Albumin/Globulin Ratio 0.8 L Micro: Microbiology 12/19/23 07:50 Blood Culture (Wb) - Right Hand Blood Culture - Preliminary No growth in 48 hours. 12/20/23 11:00 Urine Catheter - Catheter Urine Culture - Preliminary Culture exhibits no growth. 12/20/23 05:53 Stool Clostridioides difficile (PCR) - Final 12/18/23 18:20 Stool Stool Occult Blood (LISANDRA) - Final Occult Blood Positive Physical Exam Narrative GENERAL: In no apparent distress HEENT: Atraumatic; normocephalic EYES; Anicteric, Normal Conjunctiva NECK; supple, normal thyroid, RESPIRATORY: Diminished to auscultation CARDIOVASCULAR: Regular S1 S2, GI: soft, normoactive bowel sounds, : No Renal angle tenderness; EXTREMITIES: No edema, no clubbing, MUSCULOSKELETAL: no muscle wasting NEURO: no lateralizing signs. SKIN: No Rash PSYCH; flat affect Assessment & Plan Assessment/Plan (1) Alcoholic hepatitis: QUALIFIERS: Ascites presence: unspecified Qualified Code(s): K 70.10 - Alcoholic hepatitis without ascites PLAN: His labs are consistent with alcoholic hepatitis. His alcohol level currently is 110. He will be given phenobarbital. His Madrey score is 32. He cannot be given steroids due to his acute upper GI bleed. 12/19/2023-his Omaira is getting better. It is down to 24. He is not a steroid candidate. He is not exhibiting any signs of worsening alcoholic hepatitis at this time. (2) Alcoholic cirrhosis of liver: QUALIFIERS: Ascites presence: unspecified Qualified Code(s): K 70.30 - Alcoholic cirrhosis of liver without ascites PLAN: Likely alcoholic cirrhosis by his lab work and imaging there is suspicious for cirrhosis. He does have hepatosplenomegaly on imaging. Coupled with his thrombocytopenia in the setting of antiplatelet therapy with decompensated liver disease being upper GI bleed. He is very high risk and has a very high mortality. He does not have any sign of ascites at this time. He has mild jaundice. He also has acute kidney injury that is likely secondary to ATN or prerenal azotemia from GI blood loss but also could be secondary to hepatorenal syndrome. His INR is pending. 12/19/2023-decompensated alcoholic cirrhosis. He will need to get alpha- fetoprotein and check ammonia level. No sign of ascites at this time. He is up about 4 pounds since admission yesterday. He still remains on low-dose pressor therapy. (3) Alcohol abuse: PLAN: Current alcohol level is 110. He will be receiving phenobarbital. (4) Acute hypotension: PLAN: Acute hypotension secondary to GI bleed. (5) Acute upper gastrointestinal bleeding: PLAN: He will need to undergo emergent endoscopy. He was explained alternatives, risk, benefits including not withstanding bleeding, infection, sepsis, perforation, need for emergent urgent . He will have an ASA of 3. I instructed ER to give him octreotide and ceftriaxone along with PPI drip. 12/19/2023-acute GI bleed with multiple peptic ulcers in the setting of alcoholic gastritis and aspirin usage with a history of non-ST segment elevation ND's status post history of AICD. Recent echocardiogram shows EF is 45%. Would recommend to continue to hold aspirin therapy. Continue PPI as previously ordered. If hemoglobin stays stable then diet can be advanced tomorrow. 12/21/2023-his hemoglobin is down to 7.9. He could be oozing from his previous bleeding sites. Recommend to restart octreotide and PPI drip. Keep him n.p.o. past midnight and we will possibly have to perform a repeat endoscopy tomorrow. Charges/Coding Visit Charges Inpatient E&M: 77518 Subs Hosp L3
[2023-12-21] MEDS: Octreotide 0.5 MG in Dextrose 5%-Water (250mL Bag) 249 ML 25 MG CONT INF (17:41)
[2023-12-21] MEDS: dexMEDEtomidine 400 MCG in 0.9% Normal Saline (100mL Bag) 96 ML 10.2 MCG CONT INF (23:16)
[2023-12-22] VITALS (33 sets, daily range): BP systolic 92–129; BP diastolic 63–98; PULSE 75–117; RESP 15–26; TEMP 35.8–36.8; O2SAT 94–100; BMI 24.0
[2023-12-22] MEDS: Octreotide 0.5 MG in Dextrose 5%-Water (250mL Bag) 249 ML 25 MG CONT INF ×3 (03:41→23:38)
[2023-12-22] MEDS: Piperacil/Tazobactam 3.375 GM in 0.9% Normal Saline (50mL MB+) 50 ML IV ×3 (04:49→21:20)
[2023-12-22 04:57] LABS: Absolute Lymphocyte Count 0.68 X10^3/uL (0.83-4.51); Absolute Neutrophil Count 4.5 X10^3/uL (2.0-7.7); Basophil# 0.02 X10^3/uL; Basophil% 0.3 % (0-1); Eosinophil# 0.15 X10^3/uL; Eosinophils% 2.4 % (0-5); Hematocrit 23.9 % (40-54); Hemoglobin 7.8 g/dL (13.0-16.5); Lymphocyte # 0.68 X10^3/ul (0.83-4.51); Lymphocyte % 10.9 % (19-41); Mean Corp Hgb Conc 32.6 g/dL (32-36); Mean Corpuscular Hgb 35.3 pg (27.0-32.0); Mean Corpuscular Volume 108.1 fL (80-94); Mean Platelet Vol. 11.4 fl (6.2-12.0); Monocyte# 0.81 X10^3/uL; Monocyte% 12.9 % (0-10); Neutrophil # 4.49 X10^3/uL (2.7-7.7); Neutrophil % 71.7 % (47-70); POSITIVE COUNT YES; POSITIVE MORPHOLOGY YES; Platelet Count 96 K/mm3 (150-450); RBC Distribution Width CV 19.9 % (11.6-14.6); RBC Distribution Width SD 80.4 fl (35.1-43.9); Red Blood Count 2.21 M/mm3 (4.6-6.2); White Blood Count 6.3 K/mm3 (4.4-11.0)
[2023-12-22 05:31] LABS: ALB/GLOB Ratio 0.7 RATIO (0.9-2.4); AST(SGOT) 77 U/L (15-37); Alanine Aminotransfer ALT/SGPT 42 U/L (16-61); Alkaline Phosphatase 161 U/L (45-117); Anion Gap 9 (5-15); BUN 14 mg/dL (7-18); BUN/Creat Ratio 18.4 RATIO (10-20); Calcium,Total 7.7 mg/dL (8.5-10.1); Chloride 106 mmol/L (98-107); Creatinine, Serum 0.76 mg/dL (0.70-1.30); EST Glomerular Filtration Rate 115 mL/min (>60); Est Glom Filt Rate - Afr Amer 140 mL/min (>60); Globulin 2.8 g/dL (2.2-4.2); Glucose 98 mg/dL (74-106); Potassium 4.1 mmol/L (3.5-5.1); Protein, Total 4.8 g/dL (6.4-8.2); Sodium Level 140 mmol/L (136-145)
[2023-12-22 05:58] LABS: Differential Indicated SCAN CRITERIA MET
--- NOTE | 2023-12-22 07:16 | PN.HOSP_ITS ---
Reason for Visit Reason for Visit: Diagnoses Hypocalcemia (12/18/23) Hypo-osmolality and hyponatremia (12/18/23) Hypokalemia (12/18/23) Alcohol abuse, uncomplicated (12/18/23) Old myocardial infarction (12/18/23) Hypotension, unspecified (12/18/23) Alcoholic hepatitis without ascites (12/18/23) Alcoholic cirrhosis of liver without ascites (12/18/23) Melena (12/18/23) Gastrointestinal hemorrhage, unspecified (12/18/23) Acute kidney failure, unspecified (12/18/23) Other specified abnormal findings of blood chemistry (12/18/23) Adverse effect of unspecified drugs, medicaments and biological substances, initial encounter (12/18/23) Personal history of peptic ulcer disease (12/18/23) Subjective Subjective Patient seen, had to be started on Precedex drip given his agitation. Patient is scheduled to undergo repeat EGD this morning. Hemoglobin continues to drop. Objective Data Objective Data Vital Signs: Vital Signs Temp Pulse Resp BP Pulse Ox O2 Del Method O2 Flow Rate 97.5 F L 91 22 H 127/76 H 96 Nasal Cannula 2 12/22/23 03:00 12/22/23 07:00 12/22/23 07:00 12/22/23 07:00 12/22/23 07:00 12/22/23 07:00 12/22/23 07:00 Oxygen Flow Rate (L/min) 2 Oxygen Delivery Method Nasal Cannula Weight: 67.9 kg Body Mass Index (BMI) 24.0 Intake & Output: Intake and Output for Last 24 Hours 12/20/23 12/21/23 12/22/23 23:59 23:59 23:59 Intake Total 1184.78 / 1284.78 1014.50 / 1021.98 373.38 / 373.38 Output Total 0 / 1999 350 / 350 Balance -465.22 / -715.22 664.50 / 671.98 373.38 / 373.38 Medical Nutrition Assessment Dietitian: Malnutrition Criteria Met Start: 12/20/23 11:52 Freq: Status: Active Protocol: Document 12/20/23 11:52 RMA (Rec: 12/20/23 11:52 RMA [id number]) Nutrition Malnutrition Evidence of Malnutrition Exists Yes Malnutrition (severe): Chronic,Social/Behavioral/ Environmental Evidenced By Suboptimal Energy Intake ( Severe),Weight Loss (Severe) Clinical Problem Chronic Disease or Condition Related Malnutrition Etiology severe protein-calorie malnutrition in the context of chronic alcohol abuse related to inadequate energy and nutrient-dense oral intake Signs/Symptoms as evidenced by greater than 25% unintentional weight loss in less than 1 year and oral intake meeting < 50% of estimated nutritional needs x last 6 months Status Active Problem Recommendation Dietitian Recommendations/Changes Continue liberalized regular diet; restrict sodium as indicated once PO established with meals. Will add 240mL ensure plus HP w/ breakfast and dinner trays. Adjust ONS as needed once PO established with meals. Lab / Micro Data 12/22/23 04:48 12/22/23 04:48 Labs: Laboratory Results - last 24 hr 12/22/23 04:48: WBC 6.3, RBC 2.21 L, Hgb 7.8 L, Hct 23.9 L, MCV 108.1 H, MCH 35.3 H, MCHC 32.6, RDW Std Deviation 80.4 H, RDW Coeff of Amanda 19.9 H, Plt Count 96 L, MPV 11.4, Immature Gran % (Auto) 1.800 H, Neut % (Auto) 71.7 H, Lymph % (Auto) 10.9 L, [place] % (Auto) 12.9 H, Eos % (Auto) 2.4, Baso % (Auto) 0.3, Absolute Neuts (auto) 4.5, Absolute Lymphs (auto) 0.68 L, Nucleated RBC % 1.0, Sodium 140, Potassium 4.1, Chloride 106, Carbon Dioxide 25.0, Anion Gap 9, BUN 14, Creatinine 0.76, Estim Creat Clear Calc 106.10, Est GFR (MDRD) Af Amer 140, Est GFR (MDRD) Non-Af 115, BUN/Creatinine Ratio 18.4, Glucose 98, Calcium 7.7 L, Total Bilirubin 1.00, AST 77 H, ALT 42, Alkaline Phosphatase 161 H, Total Protein 4.8 L, Albumin 2.0 L, Globulin 2.8, Albumin/Globulin Ratio 0.7 L Micro: Microbiology 12/19/23 07:50 Blood Culture (Wb) - Right Hand Blood Culture - Preliminary No growth in 48 hours. 12/20/23 11:00 Urine Catheter - Catheter Urine Culture - Preliminary Culture exhibits no growth. 12/20/23 05:53 Stool Clostridioides difficile (PCR) - Final 12/18/23 18:20 Stool Stool Occult Blood (LISANDRA) - Final Occult Blood Positive Physical Exam Narrative GENERAL: In no apparent distress HEENT: Atraumatic; normocephalic EYES; Anicteric, Normal Conjunctiva NECK; supple, normal thyroid, RESPIRATORY: Diminished to auscultation CARDIOVASCULAR: Regular S1 S2, GI: soft, normoactive bowel sounds, : No Renal angle tenderness; EXTREMITIES: No edema, no clubbing, MUSCULOSKELETAL: no muscle wasting NEURO: no lateralizing signs. SKIN: No Rash PSYCH; flat affect Assessment & Plan Assessment/Plan (1) Gastrointestinal hemorrhage with melena: PLAN: Plan Patient is a 48-year-old gentleman with past medical history significant for alcoholic cirrhosis of the liver admitted with melena 1. Acute GI bleed ? Secondary to upper GI bleed from gastric ulcer exacerbated by patient thrombocytopenia as well as antiplatelet use. Patient underwent emergent upper EGD by Dr. White with gastroenterology was found to have Spurting gastric ulcers with a visible vessel. Injected. Treated with a heater probe. - Non- bleeding duodenal ulcers with no stigmata of bleeding. Patient currently managed in intensive care unit ? 12/20/2023; patient hemoglobin did drop to 9.4 we will continue with monitoring ? 12/21/2023atient hemoglobin down to 7.9 ? 12/22/2023; scheduled to undergo repeat EGD. 2. Chronic alcohol use at risk for withdrawal ? Patient is on phenobarb and Precedex Precedex has since been discontinued ? 12/21/2023; patient remains on phenobarb taper. Did experience agitation necessitating patient being given Ativan during the night to ? 12/22/2023; patient had to be started on Precedex drip. 3. Hypovolemic shock ? Resuscitated with with blood transfusion and subsequently IV fluids in addition to norepinephrine ? 12/20/2023 norepinephrine has been weaned off 4.Anemia ? Secondary to acute blood loss anemia, patient was transfused. 2 unit PRBC. Monitoring H&H with plans to transfuse if patient is deemed to be symptomatic or hemoglobin falls below 7 ? 12/20/2023; hemoglobin this a.m. 9.4 we will continue with monitoring ? 12/21/2023; hemoglobin down to 7.9 5. Elevated troponin ? Secondary to demand ischemia patient presentation not consistent with acute coronary syndrome , 6. Coronary artery disease ? With previous STEMI with subsequent PCI with stent to LAD and RCA lesion patient is on guideline directed medical therapy. His dual antiplatelet therapy held in view of his presentation 7. Hypokalemia ? Corrected per protocol 8. Hyponatremia ? Secondary to chronic alcohol use monitoring with daily BMPs 9. Acute renal failure ? Suspected to be secondary to hepatorenal syndrome as well as volume depletion patient be resuscitated with IV fluid with monitoring of electrolyte with daily BMPs 10. Paroxysmal atrial fibrillation ? Patient not on systemic anticoagulation due to significant risk for bleeding rate remains controlled 11. Chronic disease ? Stable 12. Essential hypertension ? Patient antihypertensives on hold given his low blood pressure 13. Thrombocytopenia Secondary to chronic alcohol use 14. Tobacco dependence - Counseled on cessation, offered nicotine patch for tobacco cravings 15. Obstructive sleep apnea ? Consistent use of PAP therapy encourage 16. Asthmatic bronchitis ? Bronchodilator treatment as needed 17. Acute alcoholic transaminitis ? Monitoring LFTs 18. DVT prophylaxis ? Bilateral SCDs 19. Diarrhea ? Patient has been placed in enteric precautions while C. difficile is being ruled out ? 12/21/2023 stool for C. difficile came back negative isolation discontinued 20. Severe malnutrition. Related to: in the context of chronic alcohol abuse related to inadequate energy and nutrient-dense oral intake As evidenced by: greater than 25% unintentional weight loss in less than 1 year and oral intake meeting < 50% of estimated nutritional needs x last 6 months With treatment/resources used including: Continue liberalized regular diet; restrict sodium as indicated once PO established with meals. Will add 240mL ensure plus HP w/ breakfast and dinner trays. Adjust ONS as needed once PO established with meals. Time spent in the patient's overall evaluation,decision-making process, review of diagnostic data, adjustment of management, discussion with other providers, nursing nursing and ancillary staff involved in patient's care documentation, 50 Minutes Charges/Coding Visit Charges Inpatient E&M: 06750 Subs Hosp L3
[2023-12-22 07:20] LABS: Anisocytosis 1+; Platelet Estimate ADEQUATE (ADEQ)
--- NOTE | 2023-12-22 07:44 | PCM.PN.INT ---
Assessment & Plan Assessment/Plan (1) Gastrointestinal hemorrhage with melena: (2) Alcoholic cirrhosis of liver: QUALIFIERS: Ascites presence: unspecified Qualified Code(s): K70.30 - Alcoholic cirrhosis of liver without ascites PLAN: Plan RECOMMENDATIONS: 1. Continue Precedex as ordered. 2. Continue thiamine and folic acid. 3. Continue empiric antibiotics to complete 7 days of therapy. 4. Transfuse if hemoglobin drops below 7 g/dL. 5. Continue PPI therapy and octreotide, per GI. IMPRESSIONS: 1. Hypotension I do suspect that the patient's hypotension was likely multifactorial in etiology. While I agree that there was likely a hemorrhagic component to his presenting blood pressures, I believe that a component of his hypotension was related to polypharmacy, with phenobarbital and Precedex having been administered. Lastly, an evolving infectious process may also be contributing, as the patient's chest imaging from December 19 demonstrated a right basilar infiltrate. The patient has been weaned from vasopressor support. C. difficile PCR was negative. The patient will be continued on empiric antibiotics, given the findings noted on chest imaging to complete a total of 7 days of therapy. 2. Anemia related to upper GI bleed The patient presented to the hospital with melena in the setting of bleeding gastric ulcers, which were treated endoscopically by gastroenterology. The patient will be continued on PPI therapy as ordered. Otherwise, continue to monitor blood counts and transfuse if hemoglobin drops below 7 g/dL. 3. Elevated troponin Most likely related to demand ischemia in the setting of presenting anemia and melena. Continue current medical management. 4. Acute alcohol withdrawal The patient has a longstanding history of alcohol dependency. The patient did have a positive alcohol level upon presentation. The patient was initially being maintained on a phenobarbital taper but have persistently elevated CIWA scores, for which Precedex was initiated. Continue thiamine and folic acid as ordered. 5. History of coronary artery disease status post PCI/heart failure with preserved ejection fraction/hypertension/hyperlipidemia Complicates care, management, recovery and prognosis. Continue current supportive care as noted above. This note was generated with [employer] dictation software. It may contain incorrect words, spelling, and punctuation that were not noted in checking the note before signing. Subjective Subjective The patient was seen and examined at the bedside this morning. Events from the last 24 hours have been reviewed. The patient is currently afebrile, hemodynamically stable and maintaining appropriate oxygen saturations on 2 L/min via nasal cannula. Due to elevated CIWA scores and agitation, the patient ultimately had to be restarted on Precedex yesterday. Hemoglobin this morning was noted to be 7.8 g/dL. Platelet count is improved to 96,000. Total bilirubin has normalized. Objective Data Objective Data The patient's most recent lab work, culture data and imaging studies have all been personally reviewed. Stool for occult blood was positive on December 17. C. difficile PCR was negative. Blood and urine cultures are pending. Vital Signs: Vital Signs Temp Pulse Resp BP Pulse Ox O2 Del Method O2 Flow Rate 97.5 F L 91 22 H 127/76 H 96 Nasal Cannula 2 12/22/23 03:00 12/22/23 07:00 12/22/23 07:00 12/22/23 07:00 12/22/23 07:00 12/22/23 07:00 12/22/23 07:00 Oxygen Flow Rate (L/min) 2 Oxygen Delivery Method Nasal Cannula Weight: 149 lb 11.102 oz Body Mass Index (BMI) 24.0 Intake & Output: Intake and Output for Last 24 Hours 12/20/23 12/21/23 12/22/23 23:59 23:59 23:59 Intake Total 1184.78 / 1284.78 1014.50 / 1021.98 373.38 / 373.38 Output Total 1650 / 2000 350 / 350 Balance -465.22 / -715.22 664.50 / 671.98 373.38 / 373.38 Medical Nutrition Assessment Dietitian: Malnutrition Criteria Met Start: 12/20/23 11:52 Freq: Status: Active Protocol: Document 12/20/23 11:52 RMA (Rec: 12/20/23 11:52 RMA [id number]) Nutrition Malnutrition Evidence of Malnutrition Exists Yes Malnutrition (severe): Chronic,Social/Behavioral/ Environmental Evidenced By Suboptimal Energy Intake ( Severe),Weight Loss (Severe) Clinical Problem Chronic Disease or Condition Related Malnutrition Etiology severe protein-calorie malnutrition in the context of chronic alcohol abuse related to inadequate energy and nutrient-dense oral intake Signs/Symptoms as evidenced by greater than 25% unintentional weight loss in less than 1 year and oral intake meeting < 50% of estimated nutritional needs x last 6 months Status Active Problem Recommendation Dietitian Recommendations/Changes Continue liberalized regular diet; restrict sodium as indicated once PO established with meals. Will add 240mL ensure plus HP w/ breakfast and dinner trays. Adjust ONS as needed once PO established with meals. Lab / Micro Data Attestation: I reviewed the patient's lab results. 12/22/23 04:48 12/22/23 04:48 Labs: Laboratory Results - last 24 hr 12/22/23 04:48: WBC 6.3, RBC 2.21 L, Hgb 7.8 L, Hct 23.9 L, MCV 108.1 H, MCH 35.3 H, MCHC 32.6, RDW Std Deviation 80.4 H, RDW Coeff of Amanda 19.9 H, Plt Count 96 L, MPV 11.4, Immature Gran % (Auto) 1.800 H, Neut % (Auto) 71.7 H, Lymph % (Auto) 10.9 L, [place] % (Auto) 12.9 H, Eos % (Auto) 2.4, Baso % (Auto) 0.3, Absolute Neuts (auto) 4.5, Absolute Lymphs (auto) 0.68 L, Nucleated RBC % 1.0, Platelet Estimate ADEQUATE, Anisocytosis 1+, Sodium 140, Potassium 4.1, Chloride 106, Carbon Dioxide 25.0, Anion Gap 9, BUN 14, Creatinine 0.76, Estim Creat Clear Calc 106.10, Est GFR (MDRD) Af Amer 140, Est GFR (MDRD) Non-Af 115, BUN/Creatinine Ratio 18.4, Glucose 98, Calcium 7.7 L, Total Bilirubin 1.00, AST 77 H, ALT 42, Alkaline Phosphatase 161 H, Total Protein 4.8 L, Albumin 2.0 L, Globulin 2.8, Albumin/Globulin Ratio 0.7 L Micro: Microbiology 12/19/23 07:50 Blood Culture (Wb) - Right Hand Blood Culture - Preliminary No growth in 48 hours. 12/20/23 11:00 Urine Catheter - Catheter Urine Culture - Preliminary Culture exhibits no growth. 12/20/23 05:53 Stool Clostridioides difficile (PCR) - Final 12/18/23 18:20 Stool Stool Occult Blood (LISANDRA) - Final Occult Blood Positive Radiography Diagnostic Testing: Radiology Impression Chest X-Ray 12/20/23 06:54 IMPRESSION: Mild right basilar airspace disease. Findings may indicate atelectasis or infection. Electronically Signed: Tristan Bryant MD at 7:55 EDT , Physical Exam Const alert and no apparent distress General Appearance: cooperative HEENT normocephalic and head/scalp atraumatic Teeth and Gingiva: poor dentition Eyes PERRL and EOMs intact bilaterally Neck supple General: trachea midline Chest inspection of chest normal Resp normal respiratory effort Effort and Inspection: tachypneic Auscultation: Negative for rales, rhonchi or wheezes Cardio regular rate, regular rhythm, S1 normal heart sound and S2 normal heart sound GI normal to inspection, nondistended, normoactive bowel sounds Extremity no clubbing, cyanosis or edema Skin no rashes or lesions noted Neuro CN's II-XII intact bilaterally and moves all extremities Psych cooperative Activity / Motor Behavior: restless Charges/Coding Visit Charges Inpatient E&M: 44359 Subs Hosp L2
[2023-12-22] MEDS: Pantoprazole Sodium 40 MG in 0.9% Normal Saline (100mL MB+) 100 ML 330 MG IV ×2 (10:43→21:16)
[2023-12-22] MEDS: CHLORHEXIDINE GLUC 2% CLOTH 1 EACH TOWELETTE TOPICAL (10:45)
[2023-12-22] MEDS: dexMEDEtomidine 400 MCG in 0.9% Normal Saline (100mL Bag) 96 ML 6.8 MCG CONT INF (10:50)
--- NOTE | 2023-12-22 11:12 | CASEMGMT ---
JI MARTIN Assessment: Face to Face with pt for initial transition planning/care coordination assessment. RN VERONIAC introduced self and role at [facility] [place], pt voices understanding and consents to assessment. Pt is A&O x3 and answers all questions appropriately at this time. Pt lying in bed in no distress with oxygen on. Care providers, pharmacy, and demographics verified/updated. Admitting Dx:UGIB, increased troponin, ETOH abuse with PUD Strata: 3 PCP:Pt does not have one currently. Pt states he wants to use his sig other's physician. He is agreeable to appt being set up for him at id. Will call sig other to find out name of PCP. Specialists:Pt states he stopped going to his specialists. Preferred Pharmacy:[facility] [place] Retail Insurance:YUKO Albarran Prescription Benefit: yes LNOK:Yeni Srivastava, sig other; Holli Almazan, mother Living Arrangements: Pt lives alone in a single story home with 1 step to enter. Pt reports he was I in ADL/IADLs prior to admission. Pt orders food from [employer]. Transportation: Pt drives but currently does not have an operating vehicle. Provided pt handout from [employer] who assists with vehicle repairs that SW requested to be given. 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 DME:Denies HHC/SNF:Denies hx of Pt states no concerns with going home at time of id. Pt states he drinks a fifth of whiskey per day but has stopped for 6 mos in April. Pt states he knows he can stop this on his own and does not want any resources to assist with this. Pt smokes a half pack of cigarettes per day and smokes marijuana daily. Pt states he does not have a desire to stop this. Pt denies an other drug use. Pt does not feel he will have any needs at id. No therapy ordered, board states BR. Pt states no further concerns/needs. CM to follow. Advised pt to ask CM if any further question/concerns/needs arise, voices understanding. Pt Goal:Home Plan:Home pending course of hospitalization, therapy evals (will need ordered), will need PCP set up
--- NOTE | 2023-12-22 14:06 | NURSING ---
Patient left unit to Endo for EGD
--- NOTE | 2023-12-22 14:21 | PRE.ANES_ITS ---
ASA Classification* ASA Classification ASA Classification: 3 Assessment & Plan Anesthesia* Anesthesia Assessment Anesthesia Assessment: Discussed sedation and/or anesthesia options, risks, benefits, and alternatives with patient/parents/legal guardian/POA. Questions invited. The patient/parents/legal guardian/POA seems to understand and agrees to proceed with anesthesia plan. Reviewed the physical assessment, medical history, allergy history and patient home medications list prior to surgery/procedure/anesthetic and documented any changes. Performed airway and anesthesia risk assessments. Anesthesia Type Anesthesia Type: MAC History Source History Obtained from:: Patient and Chart Anesthesia Focused Assessment* Temperature: 97.1 F Pulse Rate: 117 Blood Pressure: 113/89 Respiratory Rate: 21 Pulse Ox: 95 Oxygen Delivery Method: Room Air Airway Assessment Mouth opens: >3 cm Mallampati Score: III Teeth Condition: Chipped/Broken (Multiple chipped) and Loose (None loose at the moment.) Neck Range of motion (ROM): Full ROM Pertinent Findings EKG Pertinent Findings:: December 20, 2023. Atrial fibrillation with rapid ventricular response. Left anterior fascicular block. T wave abnormality consider lateral ischemia. Focused Labs Anesthesia Preop lab: CBC WBC 6.3 K/mm3 (4.4-11.0) 12/22/23 04:48 RBC 2.21 M/mm3 (4.6-6.2) L 12/22/23 04:48 Hgb 7.8 g/dL (13.0-16.5) L 12/22/23 04:48 Hct 23.9 % (40-54) L 12/22/23 04:48 Plt Count 96 K/mm3 (150-450) L 12/22/23 04:48 CHEMISTRY Potassium 4.1 mmol/L (3.5-5.1) 12/22/23 04:48 Sodium 140 mmol/L (136-145) 12/22/23 04:48 Magnesium 1.8 mg/dL (1.6-2.6) 12/20/23 05:45 Phosphorus 1.4 mg/dL (2.5-4.9) L 12/20/23 05:45 BUN 14 mg/dL (7-18) 12/22/23 04:48 Creatinine 0.76 mg/dL (0.70-1.30) 07/25/24 04:48 Glucose 98 mg/dL (74-106) 12/22/23 04:48 TSH 0.78 uIU/mL (0.358-3.74) 12/19/23 05:40 COAG PT 13.7 SECONDS (11.7-14.9) 12/20/23 05:45 Pre-Assessment Diagnosis/Proposed Procedure Planned Operative Procedure(s): EGD for Acute blood loss upper GI Anesthesia History Anesthesia History - correctional casework specialist: Anesthesia History - correctional casework specialist Hx Hospitalization Any Problems With Anesthesia No 12/22/23 05:25 Cholinesterase deficiency You/Your Family Experience No 12/22/23 05:25 fever (hyperthermia) with Relationship Recent Exposure to Contagious No 12/22/23 05:25 Disease Does patient have nerve No 12/22/23 05:25 stimulator Patient instructed to have device shut off --Does patient have Pacemaker or ICD? When Was Last Pacemaker Check QUESTION #4 FULL TEXT: You/Your Family Experience fever (hyperthermia) with Anesthesia Last Oral Intake Last Oral intake: Last Oral Intake NPO since 00:00 12/22/23 05:25 Meds taken in AM with sips of No 12/22/23 05:25 water? Meds patient instructed to take am of surgery PONV PONV - correctional casework specialist: PONV - correctional casework specialist Female HX of Motion Sickness HX of N/V After Surgery Non-Smoker Duration of Surgery greater than 60 minutes Number of Risk Factors PONV Score Height & Weight Height & Weight: Anesthesia: Height & Weight Height 5 ft 6.14 in 12/22/23 05:25 Weight: 67.9 kg 12/22/23 05:25 Body Mass Index (BMI) 24.0 12/22/23 05:25 Respiratory Assessment Respiratory Assessment - correctional casework specialist: Respiratory Tract Infection Hx - correctional casework specialist Hx Respiratory Tract Infection No 12/22/23 05:25 STOP Sleep Apnea STOP Sleep Apnea - correctional casework specialist: STOP Sleep Apnea - correctional casework specialist Hx Hypertension Yes 12/21/23 13:20 Hx Sleep Apnea Yes 12/18/23 23:25 CPAP No 12/18/23 23:25 BIPAP No 12/18/23 23:25 Do you snore loudly (louder than talking or can be heard Do you often feel tired/ fatigued/ sleepy during daytime? Has anyone observed you stop breathing during sleep? STOP Results Positive 12/18/23 23:25 QUESTION #5 FULL TEXT : Do you snore loudly (louder than talking or can be heard through closed doors)? Tobacco Use History Tobacco Use History - correctional casework specialist: Tobacco Use History - correctional casework specialist Tobacco Use Smoking Status Current every day smoker 12/19/23 09:15 Hx Tobacco Use Yes 12/18/23 23:25 Years Smoking Packs Smoked per Day Smoking Cessation Date was within the last 15 years Hx Smoking Cessation Date Hx Smoking Cessation Counseling Any additional information?: Yes Packs Smoked per Day: 0.5 Hematologic Medial History Hematologic Hx - correctional casework specialist: Hematologic Medical Hx - purchasing specialist Hx of Blood Transfusion Hx of Transfusion in last 3 Months Date of Last Transfusion (if within last 3 months) Ever experience any problems with transfusion(s)? Specify any problems Hx of Preganancy in last 3 Months Nurse Filling Out Transfusion & Questions: Date: Time: Patient unable to answer at Yes 12/18/23 23:25 this time (ie. confused, unrespo /Reproduction History /Reproductive History - correctional casework specialist: /Reproductive Hx- correctional casework specialist Hx Now Gestational Age (in weeks): EDC: Hx Hx Para Hx Section SAB Active Medications Active Medications: Current Medications Generic Name Dose Route Start Last Admin Trade Name Freq PRN Reason Stop Dose Admin Calamine/Phenol 1 applic 12/20/23 00:29 Menthol/Lanolin/Calamine/Znox 113 Gm Tube TOPICAL TID PRN PRN RASH/TOPICAL IRRITATION Protocol Carvedilol 25 mg 12/20/23 14:00 12/21/23 19:42 Carvedilol 25 Mg Tablet PO 25 mg BID PJ Administration Protocol Chlorhexidine Gluconate 1 each 12/19/23 10:00 12/22/23 10:45 Chlorhexidine Gluc 2% Cloth 1 Each Towelette TOPICAL 1 each DAILY PJ Administration Folic Acid 1 mg 12/21/23 08:00 12/22/23 08:02 Folic Acid 1 Mg Tablet PO Not Given BREAKFAST PJ Piperacillin Sod/Tazobactam 50 mls @ 12.5 mls/hr 12/18/23 23:35 12/22/23 14:05 Sod 3.375 gm/ Sodium Chloride IV 0 mls/hr Q8 PJ Infusion Sodium Chloride 250 mls @ 15 mls/hr 12/19/23 00:03 12/22/23 13:38 IV 0 mls/hr .[id number] PRN Infusion Additional IVPB Infusion Sodium Chloride 250 mls @ 15 mls/hr 12/19/23 00:03 IV .[id number] PRN Saline Flush Pantoprazole Sodium 40 mg/ 110 mls @ 330 mls/hr 12/20/23 22:00 12/22/23 11:04 Sodium Chloride IV Infused Q12 PJ Infusion Dexmedetomidine HCl 400 mcg/ 100 mls @ 8.475 mls/hr 12/21/23 13:15 12/22/23 12:00 Sodium Chloride CONT INF 0.4 mcg/kg/hr .[id number] PJ 6.8 mls/hr Titration Protocol 0.5 MCG/KG/HR Octreotide Acetate 0.5 mg/ 250 mls @ 25 mls/hr 12/21/23 17:30 12/22/23 13:37 Dextrose CONT INF 25 mls/hr .Q10H PJ Administration Nicotine 21 mg 12/21/23 10:00 12/22/23 10:45 Nicotine 21 Mg Patch TD 21 mg DAILY PJ Administration Ondansetron HCl 4 mg 12/18/23 21:23 Ondansetron 4 Mg/2 Ml Vial IV Q8H PRN PRN NAUSEA/VOMITING Sodium Chloride 10 - 40 ml 12/19/23 00:03 12/21/23 10:03 0.9% Saline Lock 10 Ml Syringe IV 10 ml UD PRN Administration SALINE FLUSH Thiamine HCl 100 mg 12/21/23 08:00 12/22/23 08:02 Thiamine Hydrochloride 100 Mg Tablet PO Not Given BREAKFAST PJ PFSH Medical History Alcohol abuse Anxiety PAF (paroxysmal atrial fibrillation) Tobacco use HLD (hyperlipidemia) Crohn's disease Sleep apnea COPD (chronic obstructive pulmonary disease) Asthma Congestive heart failure (CHF) Hypertension ICD (implantable cardioverter-defibrillator) in place Heart attack Home Medications ?Medication ?Instructions ?Recorded ?Last Taken ?Type aspirin 81 mg tablet,delayed 81 mg PO BREAKFAST Heart 30 days 10/03/23 Unknown Rx release #30 tabs atorvastatin 80 mg tablet 80 mg PO QHS Cholesterol 30 days 10/03/23 Unknown Rx #30 tabs carvedilol 25 mg tablet 25 mg PO BID BP 10/03/23 Unknown History lisinopril 10 mg tablet 10 mg PO DAILY Heart 30 days #30 10/03/23 Unknown Rx tabs Allergy/AdvReac Type Severity Reaction Status Date / Time bee venom protein (honey bee) Allergy Mild Swelling Verified 10/03/23 01:16 Family History Mother Hypertension Heart disease Father Hypertension CAD (coronary artery disease) Heart disease Myocardial infarction Surgical History S/P implantation of automatic cardioverter/defibrillator (AICD) Hx of heart artery stent Social History household members: none number of children: 1 current occupational status: disabled pets and animals: No Smoking Status: Current every day smoker tobacco type: cigarettes alcohol intake: current alcohol intake frequency: 3 or more drinks per day details: Whiskey 3-4 shots per day last drink october 01 hs substance use type: does not use Review of Systems (Anesthesia) ROS Narrative System reviewed and no additional complaints, except as documented.
--- NOTE | 2023-12-22 14:55 | POSTOPAN2_ITS ---
Anesthesia Postop Eval I Sum Postop Eval Completion status Anesthesia document: Postop Eval 1 completed: Yes Anesthesia Postop Eval I Summary Anesthesia Postop Eval I Summary: Anesthesia Postop Eval I: Assessment Summary Airway patent Yes 12/22/23 14:55 TRACK LAYER HEAD.MDOT Spontaneous unlabored Yes 12/22/23 14:55 TRACK LAYER HEAD.MDOT respirations Mental status Awake,Calm 12/22/23 14:55 TRACK LAYER HEAD.MDOT nausea No 12/22/23 14:55 TRACK LAYER HEAD.MDOT Vomiting No 12/22/23 14:55 TRACK LAYER HEAD.MDOT Anesthesia Postop Eval I: Fluid Summary Crystalloid volume administer 300 12/22/23 14:55 TRACK LAYER HEAD.MDOT (ml) Colloids volume administered ( ml) Blood Product volume administered (ml) Total IV fluid infused 300 12/22/23 14:55 TRACK LAYER HEAD.MDOT Anesthesia Postop Eval I: Summary Notes Anesthesia Complication No 12/22/23 14:55 TRACK LAYER HEAD.MDOT Anesthesia Complication Comment: Post-operative progress note Anesthesia: Postop Eval II Evaluation Mental status: Awake and Calm Pain Level: 0 nausea: No Vomiting: No Complications Anesthesia Complication: No
--- NOTE | 2023-12-22 14:55 | PCM.POST.ANE ---
Anesthesia: Postop Eval I Current Vital Signs Temperature: 97 F Pulse Rate: 107 Blood Pressure: 93/71 Respiratory Rate: 18 Pulse Ox: 97 Oxygen Delivery Method: Room Air Assessment Airway patent: Yes Spontaneous unlabored respirations: Yes Mental status: Awake and Calm nausea: No Vomiting: No Anesthesia Complication: No Fluid Hydration Crystalloid volume administer (ml): 300 Total IV fluid infused: 300 Progress Note Anesthesia document: Postop Eval 1 completed: Yes
--- NOTE | 2023-12-22 14:55 | PCM.POSTANE2 ---
Anesthesia Postop Eval I Sum Postop Eval Completion status Anesthesia document: Postop Eval 1 completed: Yes Anesthesia Postop Eval I Summary Anesthesia Postop Eval I Summary: Anesthesia Postop Eval I: Assessment Summary Airway patent Yes 12/22/23 14:55 INSIDE ACCOUNT REPRESENTATIVE.MDOT Spontaneous unlabored Yes 12/22/23 14:55 INSIDE ACCOUNT REPRESENTATIVE.MDOT respirations Mental status Awake,Calm 12/22/23 14:55 INSIDE ACCOUNT REPRESENTATIVE.MDOT nausea No 12/22/23 14:55 INSIDE ACCOUNT REPRESENTATIVE.MDOT Vomiting No 12/22/23 14:55 INSIDE ACCOUNT REPRESENTATIVE.MDOT Anesthesia Postop Eval I: Fluid Summary Crystalloid volume administer 300 12/22/23 14:55 INSIDE ACCOUNT REPRESENTATIVE.MDOT (ml) Colloids volume administered ( ml) Blood Product volume administered (ml) Total IV fluid infused 300 12/22/23 14:55 INSIDE ACCOUNT REPRESENTATIVE.MDOT Anesthesia Postop Eval I: Summary Notes Anesthesia Complication No 12/22/23 14:55 INSIDE ACCOUNT REPRESENTATIVE.MDOT Anesthesia Complication Comment: Post-operative progress note Anesthesia: Postop Eval II Evaluation Mental status: Awake and Calm Pain Level: 0 nausea: No Vomiting: No Complications Anesthesia Complication: No
[2023-12-22] MEDS: Tamsulosin HCl 0.4 MG Capsule PO (16:42)
[2023-12-22] MEDS: 0.9% Normal Saline (250mL Bag) 250 ML 15 ML IV (21:10)
[2023-12-22] MEDS: Carvedilol 25 MG Tablet PO (21:17)
[2023-12-22] MEDS: Menthol/Lanolin/Calamine/Znox 113 GM Tube 1 APPLIC TOPICAL (21:17)
[2023-12-23] VITALS (24 sets, daily range): BP systolic 95–144; BP diastolic 63–115; PULSE 77–90; RESP 14–22; TEMP 36.5–36.9; O2SAT 94–100; BMI 24.7
[2023-12-23] MEDS: dexMEDEtomidine 400 MCG in 0.9% Normal Saline (100mL Bag) 96 ML 5.1 MCG CONT INF (03:03)
[2023-12-23 04:14] LABS: Basophil# 0.02 X10^3/uL; Basophil% 0.4 % (0-1); Eosinophil# 0.09 X10^3/uL; Eosinophils% 1.8 % (0-5); Hematocrit 21.6 % (40-54); Lymphocyte % 15.7 % (19-41); Mean Corp Hgb Conc 32.4 g/dL (32-36); Mean Corpuscular Hgb 34.7 pg (27.0-32.0); Mean Corpuscular Volume 106.9 fL (80-94); Mean Platelet Vol. 11.3 fl (6.2-12.0); Monocyte# 0.98 X10^3/uL; Monocyte% 19.3 % (0-10); NRBC Flagged by Analyzer 1.6 % (0-5); Neutrophil % 58.9 % (47-70); POSITIVE MORPHOLOGY YES; Platelet Count 157 K/mm3 (150-450); RBC Distribution Width CV 20.1 % (11.6-14.6); RBC Distribution Width SD 77.4 fl (35.1-43.9); Red Blood Count 2.02 M/mm3 (4.6-6.2); White Blood Count 5.1 K/mm3 (4.4-11.0)
[2023-12-23 04:32] LABS: ALB/GLOB Ratio 0.6 RATIO (0.9-2.4); AST(SGOT) 48 U/L (15-37); Alanine Aminotransfer ALT/SGPT 30 U/L (16-61); Albumin, Serum 1.8 g/dL (3.2-5.0); Alkaline Phosphatase 154 U/L (45-117); Anion Gap 5 (5-15); BUN 13 mg/dL (7-18); BUN/Creat Ratio 14.1 RATIO (10-20); Calcium,Total 7.3 mg/dL (8.5-10.1); Chloride 104 mmol/L (98-107); Creatinine, Serum 0.92 mg/dL (0.70-1.30); EST Glomerular Filtration Rate 92 mL/min (>60); Est Glom Filt Rate - Afr Amer 112 mL/min (>60); Estimated Creatinine Clearance 87.65 ml/min; Globulin 2.9 g/dL (2.2-4.2); Glucose 145 mg/dL (74-106); Potassium 3.5 mmol/L (3.5-5.1); Protein, Total 4.7 g/dL (6.4-8.2); Sodium Level 136 mmol/L (136-145)
[2023-12-23] MEDS: 0.9% Saline Lock 10 ML Syringe IV ×2 (05:13→21:22)
[2023-12-23] MEDS: Piperacil/Tazobactam 3.375 GM in 0.9% Normal Saline (50mL MB+) 50 ML IV ×3 (05:14→22:07)
[2023-12-23 05:43] LABS: Differential Indicated SCAN CRITERIA MET
[2023-12-23 05:44] LABS: Anisocytosis 1+
--- NOTE | 2023-12-23 07:09 | PCM.PN.HOSP ---
Reason for Visit Reason for Visit: Diagnoses Hypocalcemia (12/18/23) Hypo-osmolality and hyponatremia (12/18/23) Hypokalemia (12/18/23) Alcohol abuse, uncomplicated (12/18/23) Old myocardial infarction (12/18/23) Hypotension, unspecified (12/18/23) Alcoholic hepatitis without ascites (12/18/23) Alcoholic cirrhosis of liver without ascites (12/18/23) Melena (12/18/23) Gastrointestinal hemorrhage, unspecified (12/18/23) Acute kidney failure, unspecified (12/18/23) Other specified abnormal findings of blood chemistry (12/18/23) Adverse effect of unspecified drugs, medicaments and biological substances, initial encounter (12/18/23) Personal history of peptic ulcer disease (12/18/23) Subjective Subjective Patient underwent repeat EGD the day prior. Hemoglobin down to 7.0 Objective Data Objective Data Vital Signs: Vital Signs Temp Pulse Resp BP Pulse Ox O2 Del Method O2 Flow Rate 97.7 F L 78 19 H 119/76 97 Room Air 2 12/23/23 04:00 12/23/23 07:00 12/23/23 07:00 12/23/23 07:00 12/23/23 07:00 12/23/23 07:00 12/22/23 14:30 Oxygen Flow Rate (L/min) 2 Oxygen Delivery Method Room Air Weight: 69.9 kg Body Mass Index (BMI) 24.7 Intake & Output: Intake and Output for Last 24 Hours 12/21/23 12/22/23 12/23/23 23:59 23:59 23:59 Intake Total 1014.50 / 1021.98 1386.14 / 1631.24 781.62 / 781.62 Output Total 350 / 350 550 / 1100 550 / 550 Balance 664.50 / 671.98 836.14 / 531.24 231.62 / 231.62 Medical Nutrition Assessment Dietitian: Malnutrition Criteria Met Start: 12/20/23 11:52 Freq: Status: Active Protocol: Document 12/20/23 11:52 RMA (Rec: 12/20/23 11:52 RMA [id number]) Nutrition Malnutrition Evidence of Malnutrition Exists Yes Malnutrition (severe): Chronic,Social/Behavioral/ Environmental Evidenced By Suboptimal Energy Intake ( Severe),Weight Loss (Severe) Clinical Problem Chronic Disease or Condition Related Malnutrition Etiology severe protein-calorie malnutrition in the context of chronic alcohol abuse related to inadequate energy and nutrient-dense oral intake Signs/Symptoms as evidenced by greater than 25% unintentional weight loss in less than 1 year and oral intake meeting < 50% of estimated nutritional needs x last 6 months Status Active Problem Recommendation Dietitian Recommendations/Changes Continue liberalized regular diet; restrict sodium as indicated once PO established with meals. Will add 240mL ensure plus HP w/ breakfast and dinner trays. Adjust ONS as needed once PO established with meals. Lab / Micro Data 12/23/23 03:50 12/23/23 03:50 Labs: Laboratory Results - last 24 hr 12/22/23 04:48: Platelet Estimate ADEQUATE, Anisocytosis 1+ 12/23/23 03:50: WBC 5.1, RBC 2.02 L, Hgb 7.0 L, Hct 21.6 L, MCV 106.9 H, MCH 34.7 H, MCHC 32.4, RDW Std Deviation 77.4 H, RDW Coeff of Amanda 20.1 H, Plt Count 157, MPV 11.3, Immature Gran % (Auto) 3.900 H, Neut % (Auto) 58.9, Lymph % (Auto) 15.7 L, [place] % (Auto) 19.3 H, Eos % (Auto) 1.8, Baso % (Auto) 0.4, Absolute Neuts (auto) 3.0, Absolute Lymphs (auto) 0.80 L, Nucleated RBC % 1.6, Anisocytosis 1+, Sodium 136, Potassium 3.5, Chloride 104, Carbon Dioxide 27.0, Anion Gap 5, BUN 13, Creatinine 0.92, Estim Creat Clear Calc 87.65, Est GFR (MDRD) Af Amer 112, Est GFR (MDRD) Non-Af 92, BUN/Creatinine Ratio 14.1, Glucose 145 H, Calcium 7.3 L, Total Bilirubin 0.60, AST 48 H, ALT 30, Alkaline Phosphatase 154 H, Total Protein 4.7 L, Albumin 1.8 L, Globulin 2.9, Albumin/Globulin Ratio 0.6 L Micro: Microbiology 12/20/23 11:00 Urine Catheter - Catheter Urine Culture - Final Culture exhibits no growth. 12/19/23 07:50 Blood Culture (Wb) - Right Hand Blood Culture - Preliminary No growth in 48 hours. 12/20/23 05:53 Stool Clostridioides difficile (PCR) - Final 12/18/23 18:20 Stool Stool Occult Blood (LISANDRA) - Final Occult Blood Positive Physical Exam Narrative GENERAL: In no apparent distress HEENT: Atraumatic; normocephalic EYES; Anicteric, Normal Conjunctiva NECK; supple, normal thyroid, RESPIRATORY: Diminished to auscultation CARDIOVASCULAR: Regular S1 S2, GI: soft, normoactive bowel sounds, : No Renal angle tenderness; EXTREMITIES: No edema, no clubbing, MUSCULOSKELETAL: no muscle wasting NEURO: no lateralizing signs. SKIN: No Rash PSYCH; flat affect Assessment & Plan Assessment/Plan (1) Gastrointestinal hemorrhage with melena: PLAN: Plan Patient is a 48-year-old gentleman with past medical history significant for alcoholic cirrhosis of the liver admitted with melena 1. Acute GI bleed ? Secondary to upper GI bleed from gastric ulcer exacerbated by patient thrombocytopenia as well as antiplatelet use. Patient underwent emergent upper EGD by Dr. White with gastroenterology was found to have Spurting gastric ulcers with a visible vessel. Injected. Treated with a heater probe. - Non-bleeding duodenal ulcers with no stigmata of bleeding. Patient currently managed in intensive care unit ? 12/20/2023; patient hemoglobin did drop to 9.4 we will continue with monitoring ? 12/21/2023atient hemoglobin down to 7.9 ? 12/22/2023; scheduled to undergo repeat EGD. -12/23/2023;Patient underwent repeat EGD the day prior. Hemoglobin down to 7.0 2. Chronic alcohol use at risk for withdrawal ? Patient is on phenobarb and Precedex Precedex has since been discontinued ? 12/21/2023; patient remains on phenobarb taper. Did experience agitation necessitating patient being given Ativan during the night to ? 12/22/2023; patient had to be started on Precedex drip. ? 12/23/2023. Case discussed with nursing staff with plan to wean off Precedex. 3. Hypovolemic shock ? Resuscitated with with blood transfusion and subsequently IV fluids in addition to norepinephrine ? 12/20/2023 norepinephrine has been weaned off 4.Anemia ? Secondary to acute blood loss anemia, patient was transfused. 2 unit PRBC. Monitoring H&H with plans to transfuse if patient is deemed to be symptomatic or hemoglobin falls below 7 ? 12/20/2023; hemoglobin this a.m. 9.4 we will continue with monitoring ? 12/21/2023; hemoglobin down to 7.9 ? 12/23/2023; hemoglobin down to 7.0 plan for patient to be transfused with additional unit PRBC 5. Elevated troponin ? Secondary to demand ischemia patient presentation not consistent with acute coronary syndrome , 6. Coronary artery disease ? With previous STEMI with subsequent PCI with stent to LAD and RCA lesion patient is on guideline directed medical therapy. His dual antiplatelet therapy held in view of his presentation 7. Hypokalemia ? Corrected per protocol 8. Hyponatremia ? Secondary to chronic alcohol use monitoring with daily BMPs 9. Acute renal failure ? Suspected to be secondary to hepatorenal syndrome as well as volume depletion patient be resuscitated with IV fluid with monitoring of electrolyte with daily BMPs 10. Paroxysmal atrial fibrillation ? Patient not on systemic anticoagulation due to significant risk for bleeding rate remains controlled 11. Chronic disease ? Stable 12. Essential hypertension ? Patient antihypertensives on hold given his low blood pressure 13. Thrombocytopenia Secondary to chronic alcohol use 14. Tobacco dependence - Counseled on cessation, offered nicotine patch for tobacco cravings 15. Obstructive sleep apnea ? Consistent use of PAP therapy encourage 16. Asthmatic bronchitis ? Bronchodilator treatment as needed 17. Acute alcoholic transaminitis ? Monitoring LFTs 18. DVT prophylaxis ? Bilateral SCDs 19. Diarrhea ? Patient has been placed in enteric precautions while C. difficile is being ruled out ? 12/21/2023 stool for C. difficile came back negative isolation discontinued 20. Severe malnutrition. Related to: in the context of chronic alcohol abuse related to inadequate energy and nutrient-dense oral intake As evidenced by: greater than 25% unintentional weight loss in less than 1 year and oral intake meeting < 50% of estimated nutritional needs x last 6 months With treatment/resources used including: Continue liberalized regular diet; restrict sodium as indicated once PO established with meals. Will add 240mL ensure plus HP w/ breakfast and dinner trays. Adjust ONS as needed once PO established with meals. Time spent in the patient's overall evaluation,decision-making process, review of diagnostic data, adjustment of management, discussion with other providers, nursing nursing and ancillary staff involved in patient's care documentation, 36 minutes Charges/Coding Visit Charges Inpatient E&M: 09956 Subs Hosp L2
[2023-12-23] MEDS: Folic Acid 1 MG Tablet PO (07:35)
[2023-12-23] MEDS: Thiamine Hydrochloride 100 MG Tablet PO (07:36)
[2023-12-23] MEDS: Carvedilol 25 MG Tablet PO ×2 (07:36→21:17)
[2023-12-23] MEDS: CHLORHEXIDINE GLUC 2% CLOTH 1 EACH TOWELETTE TOPICAL (07:36)
--- NOTE | 2023-12-23 07:37 | PCM.PN.INT ---
Assessment & Plan Assessment/Plan (1) Gastrointestinal hemorrhage with melena: (2) Alcoholic cirrhosis of liver: QUALIFIERS: Ascites presence: unspecified Qualified Code(s): K70.30 - Alcoholic cirrhosis of liver without ascites PLAN: Plan RECOMMENDATIONS: 1. Continue to wean Precedex as tolerated. 2. Continue thiamine and folic acid. 3. Continue empiric antibiotics to complete 7 days of therapy. 4. Transfuse if hemoglobin drops below 7 g/dL. 5. Continue PPI therapy and octreotide, per GI. IMPRESSIONS: 1. Hypotension I do suspect that the patient's hypotension was likely multifactorial in etiology. While I agree that there was likely a hemorrhagic component to his presenting blood pressures, I believe that a component of his hypotension was related to polypharmacy, with phenobarbital and Precedex having been administered. Lastly, an evolving infectious process may also be contributing, as the patient's chest imaging from December 19 demonstrated a right basilar infiltrate. The patient has been weaned from vasopressor support. C. difficile PCR was negative. The patient will be continued on empiric antibiotics, given the findings noted on chest imaging to complete a total of 7 days of therapy. 2. Anemia related to upper GI bleed The patient presented to the hospital with melena in the setting of bleeding gastric ulcers, which were treated endoscopically by gastroenterology. The patient will be continued on PPI therapy as ordered. Otherwise, continue to monitor blood counts and transfuse if hemoglobin drops below 7 g/dL. 3. Elevated troponin Most likely related to demand ischemia in the setting of presenting anemia and melena. Continue current medical management. 4. Acute alcohol withdrawal The patient has a longstanding history of alcohol dependency. The patient did have a positive alcohol level upon presentation. The patient was initially being maintained on a phenobarbital taper but have persistently elevated CIWA scores, for which Precedex was initiated. Continue thiamine and folic acid as ordered. 5. History of coronary artery disease status post PCI/heart failure with preserved ejection fraction/hypertension/hyperlipidemia Complicates care, management, recovery and prognosis. Continue current supportive care as noted above. This note was generated with RegisterPatient[employer] software. It may contain incorrect words, spelling, and punctuation that were not noted in checking the note before signing. Subjective Subjective The patient was seen and examined at the bedside this morning. Events from the last 24 hours have been reviewed. The patient is currently afebrile, hemodynamically stable and maintaining appropriate oxygen saturations on room air. The patient remains on low-dose Precedex with improvement in CIWA scores. Hemoglobin is down to 7.0 g/dL. Platelet count has normalized at 157,000. The patient did undergo repeat endoscopic evaluation yesterday by gastroenterology. Objective Data Objective Data The patient's most recent lab work, culture data and imaging studies have all been personally reviewed. Stool for occult blood was positive on December 17. C. difficile PCR was negative. Blood and urine cultures have not demonstrated any growth to date. Vital Signs: Vital Signs Temp Pulse Resp BP Pulse Ox O2 Del Method O2 Flow Rate 97.7 F L 78 19 H 119/76 97 Room Air 2 12/23/23 04:00 12/23/23 07:00 12/23/23 07:00 12/23/23 07:00 12/23/23 07:00 12/23/23 07:00 12/22/23 14:30 Oxygen Flow Rate (L/min) 2 Oxygen Delivery Method Room Air Weight: 154 lb 1.65 oz Body Mass Index (BMI) 24.7 Intake & Output: Intake and Output for Last 24 Hours 12/21/23 12/22/23 12/23/23 23:59 23:59 23:59 Intake Total 1014.50 / 1021.98 1386.14 / 1631.24 783.32 / 783.32 Output Total 350 / 350 550 / 1100 550 / 550 Balance 664.50 / 671.98 836.14 / 531.24 233.32 / 233.32 Medical Nutrition Assessment Dietitian: Malnutrition Criteria Met Start: 12/20/23 11:52 Freq: Status: Active Protocol: Document 12/20/23 11:52 RMA (Rec: 12/20/23 11:52 RMA [id number]) Nutrition Malnutrition Evidence of Malnutrition Exists Yes Malnutrition (severe): Chronic,Social/Behavioral/ Environmental Evidenced By Suboptimal Energy Intake ( Severe),Weight Loss (Severe) Clinical Problem Chronic Disease or Condition Related Malnutrition Etiology severe protein-calorie malnutrition in the context of chronic alcohol abuse related to inadequate energy and nutrient-dense oral intake Signs/Symptoms as evidenced by greater than 25% unintentional weight loss in less than 1 year and oral intake meeting < 50% of estimated nutritional needs x last 6 months Status Active Problem Recommendation Dietitian Recommendations/Changes Continue liberalized regular diet; restrict sodium as indicated once PO established with meals. Will add 240mL ensure plus HP w/ breakfast and dinner trays. Adjust ONS as needed once PO established with meals. Lab / Micro Data Attestation: I reviewed the patient's lab results. 12/23/23 03:50 12/23/23 03:50 Labs: Laboratory Results - last 24 hr 12/23/23 03:50: WBC 5.1, RBC 2.02 L, Hgb 7.0 L, Hct 21.6 L, MCV 106.9 H, MCH 34.7 H, MCHC 32.4, RDW Std Deviation 77.4 H, RDW Coeff of Amanda 20.1 H, Plt Count 157, MPV 11.3, Immature Gran % (Auto) 3.900 H, Neut % (Auto) 58.9, Lymph % (Auto) 15.7 L, [place] % (Auto) 19.3 H, Eos % (Auto) 1.8, Baso % (Auto) 0.4, Absolute Neuts (auto) 3.0, Absolute Lymphs (auto) 0.80 L, Nucleated RBC % 1.6, Anisocytosis 1+, Sodium 136, Potassium 3.5, Chloride 104, Carbon Dioxide 27.0, Anion Gap 5, BUN 13, Creatinine 0.92, Estim Creat Clear Calc 87.65, Est GFR (MDRD) Af Amer 112, Est GFR (MDRD) Non-Af 92, BUN/Creatinine Ratio 14.1, Glucose 145 H, Calcium 7.3 L, Total Bilirubin 0.60, AST 48 H, ALT 30, Alkaline Phosphatase 154 H, Total Protein 4.7 L, Albumin 1.8 L, Globulin 2.9, Albumin/Globulin Ratio 0.6 L Micro: Microbiology 12/20/23 11:00 Urine Catheter - Catheter Urine Culture - Final Culture exhibits no growth. 12/19/23 07:50 Blood Culture (Wb) - Right Hand Blood Culture - Preliminary No growth in 48 hours. 12/20/23 05:53 Stool Clostridioides difficile (PCR) - Final 12/18/23 18:20 Stool Stool Occult Blood (LISANDRA) - Final Occult Blood Positive Radiography Diagnostic Testing: Radiology Impression Chest X-Ray 12/20/23 06:54 IMPRESSION: Mild right basilar airspace disease. Findings may indicate atelectasis or infection. Electronically Signed: Tristan Bryant MD at 7:55 EDT , Physical Exam Const alert and no apparent distress General Appearance: cooperative HEENT normocephalic and head/scalp atraumatic Teeth and Gingiva: poor dentition Eyes PERRL and EOMs intact bilaterally Neck supple General: trachea midline Chest inspection of chest normal Resp normal respiratory effort Auscultation: Negative for rales, rhonchi or wheezes Cardio regular rate, regular rhythm, S1 normal heart sound and S2 normal heart sound GI normal to inspection, nondistended, normoactive bowel sounds Extremity no clubbing, cyanosis or edema Skin no rashes or lesions noted Neuro CN's II-XII intact bilaterally and moves all extremities Psych cooperative Charges/Coding Visit Charges Inpatient E&M: 92543 Subs Hosp L2
[2023-12-23] MEDS: Pantoprazole Sodium 40 MG in 0.9% Normal Saline (100mL MB+) 100 ML 330 MG IV ×2 (07:44→21:26)
[2023-12-23] MEDS: Octreotide 0.5 MG in Dextrose 5%-Water (250mL Bag) 249 ML 25 MG CONT INF ×2 (11:21→21:58)
[2023-12-23] MEDS: Ensure Plus High Protein 120 ML LIQUID PO ×2 (12:49→16:10)
--- NOTE | 2023-12-23 13:19 | EX.PCM.PN.GI ---
Subjective Subjective Patient underwent upper endoscopy yesterday. He was discovered to have ulcer at the GE junction consistent with a Rylee-Mccord tear that was previously fixed. He also had 2 ulcers 1 in the body and 1 in the antrum that had bleeding stigmata. He denies any abdominal pain. Denies any chest pain shortness of breath. Objective Data Objective Data Vital Signs: Vital Signs Temp Pulse Resp BP Pulse Ox O2 Del Method O2 Flow Rate 97.8 F 86 18 114/77 98 Room Air 2 12/23/23 12:00 12/23/23 13:00 12/23/23 13:00 12/23/23 13:00 12/23/23 13:00 12/23/23 13:00 12/22/23 14:30 Oxygen Flow Rate (L/min) 2 Oxygen Delivery Method Room Air Weight: 154 lb 1.65 oz Body Mass Index (BMI) 24.7 Intake & Output: Intake and Output for Last 24 Hours 12/21/23 12/22/23 12/23/23 23:59 23:59 23:59 Intake Total 1014.50 / 1021.98 1386.14 / 1631.24 1272.10 / 1272.10 Output Total 350 / 350 550 / 1100 800 / 800 Balance 664.50 / 671.98 836.14 / 531.24 472.10 / 472.10 Medical Nutrition Assessment Dietitian: Malnutrition Criteria Met Start: 12/20/23 11:52 Freq: Status: Active Protocol: Document 12/23/23 10:09 MICHELLE (Rec: 12/23/23 10:09 MICHELLE [id number]) Nutrition Malnutrition Evidence of Malnutrition Exists Yes Malnutrition (severe): Chronic,Social/Behavioral/ Environmental Evidenced By Suboptimal Energy Intake ( Severe),Weight Loss (Severe) Clinical Problem Chronic Disease or Condition Related Malnutrition Etiology severe protein-calorie malnutrition in the context of chronic alcohol abuse related to inadequate energy and nutrient-dense oral intake Signs/Symptoms as evidenced by greater than 25% unintentional weight loss in less than 1 year and oral intake meeting < 50% of estimated nutritional needs x last 6 months Status Active Problem Recommendation Dietitian Recommendations/Changes Continue liberalized regular diet; restrict sodium as indicated once PO established with meals. Order 4 oz ensure plus high protein 4x/day w/ medpass Lab / Micro Data 12/23/23 03:50 12/23/23 03:50 Labs: Laboratory Results - last 24 hr 12/23/23 03:50: WBC 5.1, RBC 2.02 L, Hgb 7.0 L, Hct 21.6 L, MCV 106.9 H, MCH 34.7 H, MCHC 32.4, RDW Std Deviation 77.4 H, RDW Coeff of Amanda 20.1 H, Plt Count 157, MPV 11.3, Immature Gran % (Auto) 3.900 H, Neut % (Auto) 58.9, Lymph % (Auto) 15.7 L, [place] % (Auto) 19.3 H, Eos % (Auto) 1.8, Baso % (Auto) 0.4, Absolute Neuts (auto) 3.0, Absolute Lymphs (auto) 0.80 L, Nucleated RBC % 1.6, Anisocytosis 1+, Sodium 136, Potassium 3.5, Chloride 104, Carbon Dioxide 27.0, Anion Gap 5, BUN 13, Creatinine 0.92, Estim Creat Clear Calc 87.65, Est GFR (MDRD) Af Amer 112, Est GFR (MDRD) Non-Af 92, BUN/Creatinine Ratio 14.1, Glucose 145 H, Calcium 7.3 L, Total Bilirubin 0.60, AST 48 H, ALT 30, Alkaline Phosphatase 154 H, Total Protein 4.7 L, Albumin 1.8 L, Globulin 2.9, Albumin/Globulin Ratio 0.6 L 12/23/23 07:30: Blood Type A POSITIVE, Antibody Screen NEGATIVE, Crossmatch See Detail Micro: Microbiology 12/20/23 11:00 Urine Catheter - Catheter Urine Culture - Final Culture exhibits no growth. 12/19/23 07:50 Blood Culture (Wb) - Right Hand Blood Culture - Preliminary No growth in 48 hours. 12/20/23 05:53 Stool Clostridioides difficile (PCR) - Final 12/18/23 18:20 Stool Stool Occult Blood (LISANDRA) - Final Occult Blood Positive Physical Exam Const alert and no apparent distress General Appearance: cooperative HEENT normocephalic and head/scalp atraumatic Teeth and Gingiva: poor dentition Eyes PERRL and EOMs intact bilaterally Neck supple General: trachea midline Chest inspection of chest normal Resp normal respiratory effort Auscultation: Negative for rales, rhonchi or wheezes Cardio regular rate, regular rhythm, S1 normal heart sound and S2 normal heart sound GI normal to inspection, nondistended, normoactive bowel sounds Extremity no clubbing, cyanosis or edema Skin no rashes or lesions noted Neuro CN's II-XII intact bilaterally and moves all extremities Psych cooperative Assessment & Plan Assessment/Plan (1) Alcoholic hepatitis: QUALIFIERS: Ascites presence: unspecified Qualified Code(s): K70.10 - Alcoholic hepatitis without ascites PLAN: His labs are consistent with alcoholic hepatitis. His alcohol level currently is 110. He will be given phenobarbital. His Madrey score is 32. He cannot be given steroids due to his acute upper GI bleed. 12/19/2023-his Omaira is getting better. It is down to 24. He is not a steroid candidate. He is not exhibiting any signs of worsening alcoholic hepatitis at this time. (2) Alcoholic cirrhosis of liver: QUALIFIERS: Ascites presence: unspecified Qualified Code(s): K70.30 - Alcoholic cirrhosis of liver without ascites PLAN: Likely alcoholic cirrhosis by his lab work and imaging there is suspicious for cirrhosis. He does have hepatosplenomegaly on imaging. Coupled with his thrombocytopenia in the setting of antiplatelet therapy with decompensated liver disease being upper GI bleed. He is very high risk and has a very high mortality. He does not have any sign of ascites at this time. He has mild jaundice. He also has acute kidney injury that is likely secondary to ATN or prerenal azotemia from GI blood loss but also could be secondary to hepatorenal syndrome. His INR is pending. 12/19/2023-decompensated alcoholic cirrhosis. He will need to get alpha-fetoprotein and check ammonia level. No sign of ascites at this time. He is up about 4 pounds since admission yesterday. He still remains on low-dose pressor therapy. (3) Alcohol abuse: PLAN: Current alcohol level is 110. He will be receiving phenobarbital. (4) Acute hypotension: PLAN: Acute hypotension secondary to GI bleed. (5) Acute upper gastrointestinal bleeding: PLAN: He will need to undergo emergent endoscopy. He was explained alternatives, risk, benefits including not withstanding bleeding, infection, sepsis, perforation, need for emergent urgent . He will have an ASA of 3. I instructed ER to give him octreotide and ceftriaxone along with PPI drip. 12/19/2023-acute GI bleed with multiple peptic ulcers in the setting of alcoholic gastritis and aspirin usage with a history of non-ST segment elevation TN's status post history of AICD. Recent echocardiogram shows EF is 45%. Would recommend to continue to hold aspirin therapy. Continue PPI as previously ordered. If hemoglobin stays stable then diet can be advanced tomorrow. 12/21/2023-his hemoglobin is down to 7.9. He could be oozing from his previous bleeding sites. Recommend to restart octreotide and PPI drip. Keep him n.p.o. past midnight and we will possibly have to perform a repeat endoscopy tomorrow. PLAN: Plan 12/23/2023-patient is tolerating a diet is not having any pain. His hemoglobin did decrease down to 7.0. He still has his gastric ulcers but there were no stigmata of chronic bleeding that was seen yesterday. Continue to monitor hemoglobin. Is possible equilibration of fluid throughout his body. Continue PPI as previously ordered Charges/Coding Visit Charges Inpatient E&M: 33740 Subs Hosp L3
--- NOTE | 2023-12-23 15:31 | CHAPLAIN ---
Type of Pastoral Visit _x__ Initial Visit ___ Follow-up Visit ___ On-call Visit ___ General Patient Visit ___ Spiritual Assessment ___ Family Conference ___ Bereavement ___ Rapid Response ___ Code Blue ___ Other (describe below) Pastoral Care Referral From _x__ Patient ___ Family ___ Nurse ___ Physician ___ Mine Foreman ___ Newspaper Reporter ___ Other (describe below) Sacrament/Intervention _x__ Active listening ___ Anointing ___ Mandaeism ___ Bereavement ___ Communion ___ Allegra exploration ___ ___ Life review _x__ Prayer ___ Reconciliation ___ Sacrament of Sick _x__ Supportive presence ___ Wedding ___ Other (describe below) Pastoral Comments patient is resting in bed but alert and able to talk; pt denies any needs or concerns but expresses thankfulness for feeling better and the good care he is receiving; pt welcomes a prayer for his support today; pt states he has a great friend, a SO, and a brother that are helpful to him
[2023-12-23] MEDS: Tamsulosin HCl 0.4 MG Capsule PO (16:10)
--- NOTE | 2023-12-23 17:52 | OP.EGD_ITS ---
Patient Name: Silver Almazan Procedure Date: 12/22/2023 2:18 PM Date of : 1975 Age: 48 Procedure: Upper GI endoscopy Indications: Iron deficiency anemia, Melena Providers: Serg White DO Medicines: Monitored Anesthesia Care Patient Profile: This is a 48 year old male. Refer to note in patient chart for documentation of history and physical. Patient has symptoms of acute vomiting. Complications: No immediate complications. Procedure: Pre-Anesthesia Assessment: - Prior to the procedure, a History and Physical was performed, and patient medications and allergies were reviewed. The patient is competent. The risks and benefits of the procedure and the sedation options and risks were discussed with the patient. All questions were answered and informed consent was obtained. Patient identification and proposed procedure were verified by the physician in the pre-procedure area. Mental Status Examination: alert and oriented. Airway Examination: normal oropharyngeal airway and neck mobility. Respiratory Examination: clear to auscultation. CV Examination: normal. Prophylactic Antibiotics: The patient does not require prophylactic antibiotics. Prior Anticoagulants: The patient has taken no anticoagulant or antiplatelet agents. ASA Grade Assessment: III - A patient with severe systemic disease. After reviewing the risks and benefits, the patient was deemed in satisfactory condition to undergo the procedure. The anesthesia plan was to use monitored anesthesia care (MAC). Immediately prior to administration of medications, the patient was re-assessed for adequacy to receive sedatives. The heart rate, respiratory rate, oxygen saturations, blood pressure, adequacy of pulmonary ventilation, and response to care were monitored throughout the procedure. The physical status of the patient was re-assessed after the procedure. After obtaining informed consent, the endoscope was passed under direct vision. Throughout the procedure, the patient's blood pressure, pulse, and oxygen saturations were monitored continuously. The gastroscope was introduced through the mouth, and advanced to the second part of duodenum. The upper GI endoscopy was accomplished without difficulty. The patient tolerated the procedure well. Scope In: 2:45:53 PM Scope Out: 2:49:01 PM Total Procedure Duration Time 0 hours 3 minutes 8 seconds Findings: LA Grade A (one or more mucosal breaks less than 5 mm, not extending between tops of 2 mucosal folds) esophagitis with no bleeding was found 35 to 39 cm from the incisors. One non-bleeding cratered gastric ulcer with no stigmata of bleeding was found in the gastric fundus. The lesion was 6 mm in largest dimension. Two non-bleeding cratered gastric ulcers with no stigmata of bleeding were found in the gastric body. The largest lesion was 7 mm in largest dimension. The first portion of the duodenum was normal. Impression: - LA Grade A reflux esophagitis with no bleeding. - Non-bleeding gastric ulcer with no stigmata of bleeding. - Non-bleeding gastric ulcers with no stigmata of bleeding. - Normal first portion of the duodenum. - No specimens collected. Recommendation: - Use sucralfate tablets 1 gram PO QID for 4 weeks. - Use Protonix (pantoprazole) 40 mg PO BID for 6 months. - Continue present medications. Procedure Code(s): --- Professional --- 91599, Esophagogastroduodenoscopy, flexible, transoral; diagnostic, including collection of specimen(s) by brushing or washing, when performed (separate procedure) CPT copyright 2021 [employer]. All rights reserved. The codes documented in this report are preliminary and upon hatch boss review may be revised to meet current compliance requirements. Serg White DO 12/23/2023 5:52:16 PM This report has been signed electronically. Number of Addenda: 0 Note Initiated On: 12/22/2023 2:18 PM
--- NOTE | 2023-12-23 17:53 | OP.CCLET_ITS ---
12/23/2023 No Primary Care Physician Re : Upper GI endoscopy procedure for Silver Almazan Dear Care Physician This procedure was performed on November. My impressions and recommendations are as follows: Impressions : - LA Grade A reflux esophagitis with no bleeding. - Non-bleeding gastric ulcer with no stigmata of bleeding. - Non-bleeding gastric ulcers with no stigmata of bleeding. - Normal first portion of the duodenum. - No specimens collected. Recommendations : - Use sucralfate tablets 1 gram PO QID for 4 weeks. - Use Protonix (pantoprazole) 40 mg PO BID for 6 months. - Continue present medications. My findings are described in the full procedure note, which is enclosed. If I can be of further assistance, please feel free to contact me at . Sincerely, Serg White, 12/23/2023 5:52:16 PM This report has been signed electronically.
[2023-12-24 03:36] VITALS: BP 138/86; PULSE 84; RESP 18; TEMP 36.7; O2SAT 99
[2023-12-24 04:53] VITALS: BMI 25.7
[2023-12-24] MEDS: Piperacil/Tazobactam 3.375 GM in 0.9% Normal Saline (50mL MB+) 50 ML IV ×3 (05:17→21:40)
[2023-12-24 07:50] LABS: Absolute Neutrophil Count 2.3 X10^3/uL (2.0-7.7); Basophil# 0.02 X10^3/uL; Basophil% 0.4 % (0-1); Eosinophil# 0.05 X10^3/uL; Hematocrit 25.7 % (40-54); Hemoglobin 8.7 g/dL (13.0-16.5); Lymphocyte % 24.6 % (19-41); Mean Corp Hgb Conc 33.9 g/dL (32-36); Mean Corpuscular Volume 100.4 fL (80-94); Mean Platelet Vol. 10.3 fl (6.2-12.0); Monocyte# 1.13 X10^3/uL; Monocyte% 23.2 % (0-10); NRBC Flagged by Analyzer 0.6 % (0-5); Neutrophil # 2.27 X10^3/uL (2.7-7.7); Neutrophil % 46.5 % (47-70); POSITIVE MORPHOLOGY YES; Platelet Count 249 K/mm3 (150-450); RBC Distribution Width CV 22.9 % (11.6-14.6); RBC Distribution Width SD 83.7 fl (35.1-43.9); Red Blood Count 2.56 M/mm3 (4.6-6.2); White Blood Count 4.9 K/mm3 (4.4-11.0)
[2023-12-24 07:53] LABS: Differential Indicated SCAN CRITERIA MET
[2023-12-24 08:20] LABS: ALB/GLOB Ratio 0.6 RATIO (0.9-2.4); AST(SGOT) 33 U/L (15-37); Alanine Aminotransfer ALT/SGPT 21 U/L (16-61); Albumin, Serum 1.8 g/dL (3.2-5.0); Alkaline Phosphatase 138 U/L (45-117); Anion Gap 7 (5-15); BUN 8 mg/dL (7-18); BUN/Creat Ratio 10.5 RATIO (10-20); Calcium,Total 7.3 mg/dL (8.5-10.1); Chloride 104 mmol/L (98-107); Creatinine, Serum 0.76 mg/dL (0.70-1.30); EST Glomerular Filtration Rate 116 mL/min (>60); Est Glom Filt Rate - Afr Amer 140 mL/min (>60); Glucose 98 mg/dL (74-106); Potassium 3.1 mmol/L (3.5-5.1); Protein, Total 4.8 g/dL (6.4-8.2); Sodium Level 136 mmol/L (136-145)
[2023-12-24 08:30] LABS: Anisocytosis 1+; Atypical Lymphocyte RARE %
--- NOTE | 2023-12-24 08:53 | PN.HOSP_ITS ---
Reason for Visit Reason for Visit: Diagnoses Hypocalcemia (12/18/23) Hypo-osmolality and hyponatremia (12/18/23) Hypokalemia (12/18/23) Alcohol abuse, uncomplicated (12/18/23) Old myocardial infarction (12/18/23) Hypotension, unspecified (12/18/23) Alcoholic hepatitis without ascites (12/18/23) Alcoholic cirrhosis of liver without ascites (12/18/23) Melena (12/18/23) Gastrointestinal hemorrhage, unspecified (12/18/23) Acute kidney failure, unspecified (12/18/23) Other specified abnormal findings of blood chemistry (12/18/23) Adverse effect of unspecified drugs, medicaments and biological substances, initial encounter (12/18/23) Personal history of peptic ulcer disease (12/18/23) Subjective Subjective Patient seen continues to improve clinically. Hemoglobin came up to 8.7 following transfusion with 1 unit PRBC. Diagnostic data reviewed this morning significant for hypokalemia of 3.1 additional replacement given Objective Data Objective Data Vital Signs: Vital Signs Temp Pulse Resp BP Pulse Ox O2 Del Method O2 Flow Rate 98.0 F 84 18 138/86 H 99 Room Air 2 12/24/23 03:36 12/24/23 03:36 12/24/23 03:36 12/24/23 03:36 12/24/23 03:36 12/24/23 03:36 12/22/23 14:30 Oxygen Flow Rate (L/min) 2 Oxygen Delivery Method Room Air Weight: 72.6 kg Body Mass Index (BMI) 25.7 Intake & Output: Intake and Output for Last 24 Hours 12/22/23 12/23/23 12/24/23 23:59 23:59 23:59 Intake Total 1386.14 / 1631.24 1803.10 / 1803.10 50 / 50 Output Total 550 / 1100 800 / 801 / Balance 836.14 / 531.24 1003.10 / 1002.10 49 / 49 Medical Nutrition Assessment Dietitian: Malnutrition Criteria Met Start: 12/20/23 11:52 Freq: Status: Active Protocol: Document 12/23/23 10:09 SLA (Rec: 12/23/23 10:09 SLA [id number]) Nutrition Malnutrition Evidence of Malnutrition Exists Yes Malnutrition (severe): Chronic,Social/Behavioral/ Environmental Evidenced By Suboptimal Energy Intake ( Severe),Weight Loss (Severe) Clinical Problem Chronic Disease or Condition Related Malnutrition Etiology severe protein-calorie malnutrition in the context of chronic alcohol abuse related to inadequate energy and nutrient-dense oral intake Signs/Symptoms as evidenced by greater than 25% unintentional weight loss in less than 1 year and oral intake meeting < 50% of estimated nutritional needs x last 6 months Status Active Problem Recommendation Dietitian Recommendations/Changes Continue liberalized regular diet; restrict sodium as indicated once PO established with meals. Order 4 oz ensure plus high protein 4x/day w/ medpass Lab / Micro Data 12/24/23 07:30 12/24/23 07:30 Labs: Laboratory Results - last 24 hr 12/18/23 18:20: Crossmatch See Detail 12/23/23 07:30: Blood Type A POSITIVE, Antibody Screen NEGATIVE, Crossmatch See Detail 12/24/23 07:30: WBC 4.9, RBC 2.56 L, Hgb 8.7 L, Hct 25.7 L, MCV 100.4 H D, MCH 34.0 H, MCHC 33.9, RDW Std Deviation 83.7 H, RDW Coeff of Amanda 22.9 H, Plt Count 249, MPV 10.3, Immature Gran % (Auto) 4.300 H, Neut % (Auto) 46.5 L, Lymph % (Auto) 24.6, [place] % (Auto) 23.2 H, Eos % (Auto) 1.0, Baso % (Auto) 0.4, Absolute Neuts (auto) 2.3, Absolute Lymphs (auto) 1.20, Nucleated RBC % 0.6, Atypical Lymphocytes RARE, Anisocytosis 1+, Sodium 136, Potassium 3.1 L, Chloride 104, Carbon Dioxide 25.0, Anion Gap 7, BUN 8, Creatinine 0.76, Estim Creat Clear Calc 106.10, Est GFR (MDRD) Af Amer 140, Est GFR (MDRD) Non-Af 116, BUN/Creatinine Ratio 10.5, Glucose 98, Calcium 7.3 L, Total Bilirubin 0.70, AST 33, ALT 21, A lkaline Phosphatase 138 H, Total Protein 4.8 L, Albumin 1.8 L, Globulin 3.0, A lbumin/Globulin Ratio 0.6 L Micro: Microbiology 12/19/23 07:50 Blood Culture (Wb) - Right Hand Blood Culture - Final No growth in 5 days. 12/20/23 11:00 Urine Catheter - Catheter Urine Culture - Final Culture exhibits no growth. 12/20/23 05:53 Stool Clostridioides difficile (PCR) - Final 12/18/23 18:20 Stool Stool Occult Blood (LISANDRA) - Final Occult Blood Positive Physical Exam Narrative GENERAL: In no apparent distress HEENT: Atraumatic; normocephalic EYES; Anicteric, Normal Conjunctiva NECK; supple, normal thyroid, RESPIRATORY: Diminished to auscultation CARDIOVASCULAR: Regular S1 S2, GI: soft, normoactive bowel sounds, : No Renal angle tenderness; EXTREMITIES: No edema, no clubbing, MUSCULOSKELETAL: no muscle wasting NEURO: no lateralizing signs. SKIN: No Rash PSYCH; flat affect Assessment & Plan Assessment/Plan (1) Gastrointestinal hemorrhage with melena: PLAN: Plan Patient is a 48-year-old gentleman with past medical history significant for alcoholic cirrhosis of the liver admitted with melena 1. Acute GI bleed ? Secondary to upper GI bleed from gastric ulcer exacerbated by patient thrombocytopenia as well as antiplatelet use. Patient underwent emergent upper EGD by Dr. White with gastroenterology was found to have Spurting gastric ulcers with a visible vessel. Injected. Treated with a heater probe. - Non- bleeding duodenal ulcers with no stigmata of bleeding. Patient currently managed in intensive care unit ? 12/20/2023; patient hemoglobin did drop to 9.4 we will continue with monitoring ? 12/21/2023atient hemoglobin down to 7.9 ? 12/22/2023; scheduled to undergo repeat EGD. -12/23/2023;Patient underwent repeat EGD the day prior. Hemoglobin down to 7.0 ? 12/24/2023; hemoglobin up to 8.7 following blood transfusion. Repeat EGD did not show any further evidence of bleeding. 2. Chronic alcohol use at risk for withdrawal ? Patient is on phenobarb and Precedex Precedex has since been discontinued ? 12/21/2023; patient remains on phenobarb taper. Did experience agitation necessitating patient being given Ativan during the night to ? 12/22/2023; patient had to be started on Precedex drip. ? 12/23/2023. Case discussed with nursing staff with plan to wean off Precedex. 3. Hypovolemic shock ? Resuscitated with with blood transfusion and subsequently IV fluids in addition to norepinephrine ? 12/20/2023 norepinephrine has been weaned off 4.Anemia ? Secondary to acute blood loss anemia, patient was transfused. 2 unit PRBC. Monitoring H&H with plans to transfuse if patient is deemed to be symptomatic or hemoglobin falls below 7 ? 12/20/2023; hemoglobin this a.m. 9.4 we will continue with monitoring ? 12/21/2023; hemoglobin down to 7.9 ? 12/23/2023; hemoglobin down to 7.0 plan for patient to be transfused with additional unit PRBC 5. Elevated troponin ? Secondary to demand ischemia patient presentation not consistent with acute coronary syndrome , 6. Coronary artery disease ? With previous STEMI with subsequent PCI with stent to LAD and RCA lesion patient is on guideline directed medical therapy. His dual antiplatelet therapy held in view of his presentation 7. Hypokalemia ? Corrected per protocol ? 12/24/2023; potassium 3.1 additional replacement given repeat labs ordered for a.m. 8. Hyponatremia ? Secondary to chronic alcohol use monitoring with daily BMPs 9. Acute renal failure ? Suspected to be secondary to hepatorenal syndrome as well as volume depletion patient be resuscitated with IV fluid with monitoring of electrolyte with daily BMPs ? 12/24/2023; TEO resolved 10. Paroxysmal atrial fibrillation ? Patient not on systemic anticoagulation due to significant risk for bleeding rate remains controlled 11. Chronic disease ? Stable 12. Essential hypertension ? Patient antihypertensives on hold given his low blood pressure 13. Thrombocytopenia Secondary to chronic alcohol use 14. Tobacco dependence - Counseled on cessation, offered nicotine patch for tobacco cravings 15. Obstructive sleep apnea ? Consistent use of PAP therapy encourage 16. Asthmatic bronchitis ? Bronchodilator treatment as needed 17. Acute alcoholic transaminitis ? Monitoring LFTs 18. DVT prophylaxis ? Bilateral SCDs 19. Diarrhea ? Patient has been placed in enteric precautions while C. difficile is being ruled out ? 12/21/2023 stool for C. difficile came back negative isolation discontinued 20. Severe malnutrition. Related to: in the context of chronic alcohol abuse related to inadequate energy and nutrient-dense oral intake As evidenced by: greater than 25% unintentional weight loss in less than 1 year and oral intake meeting < 50% of estimated nutritional needs x last 6 months With treatment/resources used including: Continue liberalized regular diet; restrict sodium as indicated once PO established with meals. Will add 240mL ensure plus HP w/ breakfast and dinner trays. Adjust ONS as needed once PO established with meals. Time spent in the patient's overall evaluation,decision-making process, review of diagnostic data, adjustment of management, discussion with other providers, nursing nursing and ancillary staff involved in patient's care documentation, 36 minutes Charges/Coding Visit Charges Inpatient E&M: 05481 Subs Hosp L2
[2023-12-24] MEDS: Octreotide 0.5 MG in Dextrose 5%-Water (250mL Bag) 249 ML 25 MG CONT INF ×2 (09:19→18:15)
[2023-12-24] MEDS: Pantoprazole Sodium 40 MG in 0.9% Normal Saline (100mL MB+) 100 ML 330 MG IV ×2 (09:23→21:39)
[2023-12-24] MEDS: Potassium Chloride Oral Tablet 20 MEQ 40 MEQ PO (09:29)
[2023-12-24 09:30] VITALS: BP 144/112; PULSE 93; RESP 18; TEMP 36.7; O2SAT 99
[2023-12-24 09:31] LABS: Magnesium 1.3 mg/dL (1.6-2.6); Phosphorus 1.7 mg/dL (2.5-4.9)
[2023-12-24] MEDS: Thiamine Hydrochloride 100 MG Tablet PO (09:32)
[2023-12-24] MEDS: Folic Acid 1 MG Tablet PO (09:32)
[2023-12-24] MEDS: Carvedilol 25 MG Tablet PO ×2 (09:32→21:40)
--- NOTE | 2023-12-24 09:47 | CASEMGMT ---
Social Work- SW met with pt to complete HCPOA. Pt states that he has had 3 heart attacks and feels the document is needed. Pt reports that his mom, Holli, is primary agent with [employer], and daughter, Madeline, as alternate agents. Pt was given original and 3 copies for his agents; SW placed a copy on chart as well. Pt reports that he has not slept in 48 hours. Pt reports that normally his days and nights are mixed up; pt sleeps during the day and is awake all night. Pt states that he keeps curtains open, goes outdoors in the sun, keeps lights on, and is active during the day to try to regulate sleep patterns. Pt reports that he has taken melatonin, which makes him feel like he is in a coma and can't move his extremities. Pt reports that he prefers Ativan or Xanax for sleep, however, d/ge'd meds. Pt reports baseline anxiety, generalized. Pt reports he does not have coping skills that he uses. SW encouraged mental health supports; pt declined. Pt denies any other needs at this time. SW to remain available to follow. LAUREN Goodson
--- NOTE | 2023-12-24 13:45 | PN.CC_ITS ---
Objective Data Objective Data Vital Signs: Vital Signs Last response 3 Temperature 36.7 C 12/24/23 09:30 Temperature Source Temporal 12/24/23 09:30 Pulse Rate 93 12/24/23 09:30 Pulse Strength Normal (2+) 12/23/23 09:27 Respiratory Rate 18 12/24/23 09:30 Respiratory Effort Normal, Non-Labored 12/24/23 09:11 Respiratory Depth Normal 12/24/23 09:11 Respiratory Pattern Normal 12/24/23 09:11 Blood Pressure 144/112 H 12/24/23 09:30 Blood Pressure Mean 122 12/24/23 09:30 Blood Pressure Source Monitor 12/24/23 03:36 Blood Pressure Position Semi-Fowlers 12/24/23 03:36 Blood Pressure Location Left Arm 12/24/23 03:36 Baseline BP 103/74 12/22/23 15:22 Pulse Ox 99 12/24/23 09:30 Oxygen Delivery Method Room Air 12/24/23 09:30 Oxygen Flow Rate (L/min) 2 12/22/23 14:30 I&O: I&O Last 24 Hours 3 12/23/23 12/24/23 12/24/23 23:59 11:59 23:59 Intake Total 771 / 1803.10 460 / 460 Output Total 250 / 801 Balance 521 / 1002.10 459 / 459 I&O: Total Stay 3 12/18/23 17:58 thru 12/24/23 11:49 Intake Total 14078.9233 Output Total 6626 Balance 5114.9233 Current Meds Ordered / Administered: Current meds ordered / Administered 3 Generic Name Dose Route Start Last Admin Trade Name Freq PRN Reason Stop Dose Admin Calamine/Phenol 1 applic 12/20/23 00:29 12/22/23 21:17 Menthol/Lanolin/Calamine/Znox 113 Gm Tube TOPICAL 1 applic TID PRN PRN Administration RASH/TOPICAL IRRITATION Protocol Carvedilol 25 mg 12/20/23 14:00 12/24/23 09:32 Carvedilol 25 Mg Tablet PO 25 mg BID PJ Administration Protocol Folic Acid 1 mg 12/21/23 08:00 12/24/23 09:32 Folic Acid 1 Mg Tablet PO 1 mg BREAKFAST PJ Administration Piperacillin Sod/Tazobactam 50 mls @ 12.5 mls/hr 12/18/23 23:35 12/24/23 11:12 Sod 3.375 gm/ Sodium Chloride IV 12/25/23 17:59 Infused Q8 PJ Infusion Sodium Chloride 250 mls @ 15 mls/hr 12/19/23 00:03 12/23/23 23:07 IV Infused .[id number] PRN Infusion Additional IVPB Infusion Sodium Chloride 250 mls @ 15 mls/hr 12/19/23 00:03 IV .[id number] PRN Saline Flush Pantoprazole Sodium 40 mg/ 110 mls @ 330 mls/hr 12/20/23 22:00 12/24/23 11:13 Sodium Chloride IV Infused Q12 PJ Infusion Octreotide Acetate 0.5 mg/ 250 mls @ 25 mls/hr 12/21/23 17:30 12/24/23 09:19 Dextrose CONT INF 25 mls/hr .Q10H PJ Administration Nicotine 21 mg 12/21/23 10:00 12/24/23 09:32 Nicotine 21 Mg Patch TD 21 mg DAILY PJ Administration Nutritional Formula (Lactose Free) 120 ml 12/23/23 14:00 12/24/23 09:33 Ensure Plus High Protein 120 Ml Liquid PO Not Given 4X/DAY PJ Ondansetron HCl 4 mg 12/18/23 21:23 Ondansetron 4 Mg/2 Ml Vial IV Q8H PRN PRN NAUSEA/VOMITING Potassium Chloride 20 meq 12/24/23 17:00 Potassium Chloride Oral Tablet 20 Meq PO BIDCM PJ Sodium Chloride 10 - 40 ml 12/19/23 00:03 12/23/23 21:22 0.9% Saline Lock 10 Ml Syringe IV 10 ml UD PRN Administration SALINE FLUSH Tamsulosin HCl 0.4 mg 12/22/23 17:30 12/23/23 16:10 Tamsulosin Hcl 0.4 Mg Capsule PO 0.4 mg DAILY@1730 PJ Administration Thiamine HCl 100 mg 12/21/23 08:00 12/24/23 09:32 Thiamine Hydrochloride 100 Mg Tablet PO 100 mg BREAKFAST PJ Administration Medical Records Data Medical Nutrition Assessment Dietitian: Malnutrition Criteria Met Start: 12/20/23 11:52 Freq: Status: Active Protocol: Document 12/23/23 10:09 MICHELLE (Rec: 12/23/23 10:09 MICHELLE [id number]) Nutrition Malnutrition Evidence of Malnutrition Exists Yes Malnutrition (severe): Chronic,Social/Behavioral/ Environmental Evidenced By Suboptimal Energy Intake ( Severe),Weight Loss (Severe) Clinical Problem Chronic Disease or Condition Related Malnutrition Etiology severe protein-calorie malnutrition in the context of chronic alcohol abuse related to inadequate energy and nutrient-dense oral intake Signs/Symptoms as evidenced by greater than 25% unintentional weight loss in less than 1 year and oral intake meeting < 50% of estimated nutritional needs x last 6 months Status Active Problem Recommendation Dietitian Recommendations/Changes Continue liberalized regular diet; restrict sodium as indicated once PO established with meals. Order 4 oz ensure plus high protein 4x/day w/ medpass Lab / Micro Data Attestation: I reviewed the patient's lab results. 12/24/23 07:30 12/24/23 07:30 Labs: Laboratory Results - last 24 hr 12/18/23 18:20: Crossmatch See Detail 12/23/23 07:30: Blood Type A POSITIVE, Antibody Screen NEGATIVE, Crossmatch See Detail 12/24/23 07:30: WBC 4.9, RBC 2.56 L, Hgb 8.7 L, Hct 25.7 L, MCV 100.4 H D, MCH 34.0 H, MCHC 33.9, RDW Std Deviation 83.7 H, RDW Coeff of Amanda 22.9 H, Plt Count 249, MPV 10.3, Immature Gran % (Auto) 4.300 H, Neut % (Auto) 46.5 L, Lymph % (Auto) 24.6, [place] % (Auto) 23.2 H, Eos % (Auto) 1.0, Baso % (Auto) 0.4, Absolute Neuts (auto) 2.3, Absolute Lymphs (auto) 1.20, Nucleated RBC % 0.6, Atypical Lymphocytes RARE, Anisocytosis 1+, Sodium 136, Potassium 3.1 L, Chloride 104, Carbon Dioxide 25.0, Anion Gap 7, BUN 8, Creatinine 0.76, Estim Creat Clear Calc 106.10, Est GFR (MDRD) Af Amer 140, Est GFR (MDRD) Non-Af 116, BUN/Creatinine Ratio 10.5, Glucose 98, Calcium 7.3 L, Phosphorus 1.7 L, Magnesium 1.3 L, Total Bilirubin 0.70, AST 33, ALT 21, Alkaline Phosphatase 138 H, Total Protein 4.8 L, Albumin 1.8 L, Globulin 3.0, Albumin/Globulin Ratio 0.6 L Micro: Microbiology 12/19/23 07:50 Blood Culture (Wb) - Right Hand Blood Culture - Final No growth in 5 days. Assessment and Plan . Assessment and plan: [facility] Medical Records Department [address] [place] [address] Progress Note - Hvac Service Manager 12/23/23 0737 MR#: [id number] Acct: [id number] Name: KARTHIK TOUSSAINT Rep #: [id number] : 1975 48 From: Burak Noel DO PCP: Care Physician,No Primary Status: ADM IN Assessment & Plan IMPRESSIONS: 1. Hypotension, multifactorial, resolved 2. Anemia related to upper GI bleed, hemoglobin appears to have stabilized and gibson from 7.0 gm/dL to 8.7 gm/dL after just one unit PRBC yesterday 3. Elevated troponin, most likely related to demand ischemia in the setting of presenting anemia and melena. Continue current medical management. 4. Acute alcohol withdrawal, managed with phenobarbital and then precedex, now resolving. Continue thiamine and folic acid as ordered. 5. History of coronary artery disease status post PCI/heart failure with preserved ejection fraction/hypertension/hyperlipidemia Complicates care, management, recovery and prognosis. Continue current supportive care as noted above. RECOMMENDATIONS: 1. Continue to wean Precedex as tolerated. 2. Continue thiamine and folic acid. 3. Continue empiric antibiotics to complete 7 days of therapy. 4. Transfuse if hemoglobin drops below 7 g/dL. 5. Continue PPI therapy and octreotide, per GI. Critical Care Time: 50 minutes The entirety of this encounter was done via Telemedicine Physical Exam Const alert, oriented x3 and no apparent distress General Appearance: cooperative and well developed HEENT normocephalic Eyes PERRL Subjective Subjective Looks good, no further evidence of active bleeding. he states this hospital saved my life. Endoscopy results noted.
--- NOTE | 2023-12-24 13:56 | ADDICTION ---
Pt was met with to provide resources for substance use and mental health treatment. Pt states that he is not interested in a residential or inpatient tx option but he was open to exploring outpatient resources. Pt was provided a packet of information on addiction and mh tx as well as a list of resources for counseling and support. Pt's SW was also provided a packet of information for support services for pt's mother who is reportedly struggling to cope with her son's JENNIFER. Pt states he is planning to call his mother to pick him up and transport him home after he is discharged from [facility].
[2023-12-24] MEDS: Magnesium Sulfate 4gm/100mL 4 GM/100 ML IV.SOLN. IV (16:51)
[2023-12-24] MEDS: Potassium Chloride Oral Tablet 20 MEQ PO (16:52)
[2023-12-24] MEDS: Na Biphos/Potassium Phosphate PACKET 1 PACKET PO ×2 (16:53→21:40)
[2023-12-24] MEDS: Tamsulosin HCl 0.4 MG Capsule PO (16:54)
[2023-12-24 16:57] VITALS: BP 144/102; PULSE 83; RESP 18; TEMP 36.4; O2SAT 97
[2023-12-24] MEDS: MELATONIN 10 MG TABLET 5 MG PO (21:39)
[2023-12-24] MEDS: 0.9% Saline Lock 10 ML Syringe IV (21:39)
[2023-12-24] MEDS: Magnesium Chloride 64 MG Delay Rel.Tablet 128 MG PO (21:40)
[2023-12-24 21:45] VITALS: BP 125/86; PULSE 76; RESP 18; TEMP 36.2; O2SAT 97
[2023-12-25 03:15] VITALS: BP 130/90; PULSE 78; RESP 18; TEMP 36.6; O2SAT 98
[2023-12-25] MEDS: Octreotide 0.5 MG in Dextrose 5%-Water (250mL Bag) 249 ML 25 MG CONT INF (03:36)
[2023-12-25 04:44] LABS: ALB/GLOB Ratio 0.6 RATIO (0.9-2.4); AST(SGOT) 35 U/L (15-37); Alanine Aminotransfer ALT/SGPT 23 U/L (16-61); Albumin, Serum 1.9 g/dL (3.2-5.0); Alkaline Phosphatase 134 U/L (45-117); Anion Gap 8 (5-15); BUN 6 mg/dL (7-18); BUN/Creat Ratio 7.5 RATIO (10-20); Calcium,Total 7.5 mg/dL (8.5-10.1); Chloride 102 mmol/L (98-107); EST Glomerular Filtration Rate 109 mL/min (>60); Est Glom Filt Rate - Afr Amer 131 mL/min (>60); Glucose 122 mg/dL (74-106); Magnesium 1.9 mg/dL (1.6-2.6); Potassium 3.7 mmol/L (3.5-5.1); Protein, Total 4.9 g/dL (6.4-8.2); Sodium Level 133 mmol/L (136-145)
[2023-12-25] MEDS: Piperacil/Tazobactam 3.375 GM in 0.9% Normal Saline (50mL MB+) 50 ML IV (05:18)
[2023-12-25] MEDS: 0.9% Saline Lock 10 ML Syringe IV (05:18)
[2023-12-25 05:52] VITALS: BMI 25.1
[2023-12-25 06:57] LABS: Absolute Neutrophil Count 2.1 X10^3/uL (2.0-7.7); Basophil# 0.03 X10^3/uL; Basophil% 0.7 % (0-1); Eosinophil# 0.06 X10^3/uL; Eosinophils% 1.4 % (0-5); Hematocrit 26.8 % (40-54); Lymphocyte % 22.8 % (19-41); Mean Corp Hgb Conc 33.6 g/dL (32-36); Mean Corpuscular Hgb 34.2 pg (27.0-32.0); Mean Corpuscular Volume 101.9 fL (80-94); Mean Platelet Vol. 9.7 fl (6.2-12.0); Monocyte# 1.02 X10^3/uL; Monocyte% 23.3 % (0-10); NRBC Flagged by Analyzer 0 % (0-5); Neutrophil # 2.14 X10^3/uL (2.7-7.7); Neutrophil % 48.8 % (47-70); POSITIVE MORPHOLOGY YES; Platelet Count 295 K/mm3 (150-450); RBC Distribution Width CV 22.5 % (11.6-14.6); RBC Distribution Width SD 83.8 fl (35.1-43.9); Red Blood Count 2.63 M/mm3 (4.6-6.2); White Blood Count 4.4 K/mm3 (4.4-11.0)
[2023-12-25 06:58] LABS: Differential Indicated SCAN CRITERIA MET
[2023-12-25 07:37] VITALS: O2SAT 95
--- NOTE | 2023-12-25 08:41 | PCM.DC.SUM ---
Providers Date of Admission: 12/18/23 Date of Discharge: 12/25/23 Primary Care Physician: Janis Primary Care Phys Consultations 12/19/23 05:52 Consult: Donor Specialist / Pulmonary Medicine Routine Consulting Provider: Intensivists/Pulmonary Med Reason for Consult: hypotension requiring levo EMERGENT Consult: No Notified: Yes Date Notified: 12/19/23 Time Notified: 05:52 Method of Notification: Verbal 12/19/23 05:53 Consult: Gastroenterology Routine Consulting Provider: [facility] Reason for Consult: UGIB EMERGENT Consult: No Notified: Yes Date Notified: 12/19/23 Time Notified: 05:53 Method of Notification: ED Physician Initiated Reason For Visit: UGIB, INCREASED TROPONIN, ETOH ABUSE W PUD AND Diagnosis Discharge Diagnosis (1) Gastrointestinal hemorrhage with melena: Status: Acute Code(s): K92.1 - Melena Plan Patient is a 48-year-old gentleman with past medical history significant for alcoholic cirrhosis of the liver admitted with melena 1. Acute GI bleed ? Secondary to upper GI bleed from gastric ulcer exacerbated by patient thrombocytopenia as well as antiplatelet use. Patient underwent emergent upper EGD by Dr. White with gastroenterology was found to have Spurting gastric ulcers with a visible vessel. Injected. Treated with a heater probe. - Non-bleeding duodenal ulcers with no stigmata of bleeding. Patient currently managed in intensive care unit ? 12/20/2023; patient hemoglobin did drop to 9.4 we will continue with monitoring ? 12/21/2023atient hemoglobin down to 7.9 ? 12/22/2023; scheduled to undergo repeat EGD. -12/23/2023;Patient underwent repeat EGD the day prior. Hemoglobin down to 7.0 ? 12/24/2023; hemoglobin up to 8.7 following blood transfusion. Repeat EGD did not show any further evidence of bleeding. 2. Chronic alcohol use at risk for withdrawal ? Patient is on phenobarb and Precedex Precedex has since been discontinued ? 12/21/2023; patient remains on phenobarb taper. Did experience agitation necessitating patient being given Ativan during the night to ? 12/22/2023; patient had to be started on Precedex drip. ? 12/23/2023. Case discussed with nursing staff with plan to wean off Precedex. 3. Hypovolemic shock ? Resuscitated with with blood transfusion and subsequently IV fluids in addition to norepinephrine ? 12/20/2023 norepinephrine has been weaned off 4.Anemia ? Secondary to acute blood loss anemia, patient was transfused. 2 unit PRBC. Monitoring H&H with plans to transfuse if patient is deemed to be symptomatic or hemoglobin falls below 7 ? 12/20/2023; hemoglobin this a.m. 9.4 we will continue with monitoring ? 12/21/2023; hemoglobin down to 7.9 ? 12/23/2023; hemoglobin down to 7.0 plan for patient to be transfused with additional unit PRBC 5. Elevated troponin ? Secondary to demand ischemia patient presentation not consistent with acute coronary syndrome , 6. Coronary artery disease ? With previous STEMI with subsequent PCI with stent to LAD and RCA lesion patient is on guideline directed medical therapy. His dual antiplatelet therapy held in view of his presentation 7. Hypokalemia ? Corrected per protocol ? 12/24/2023; potassium 3.1 additional replacement given repeat labs ordered for a.m. 8. Hyponatremia ? Secondary to chronic alcohol use monitoring with daily BMPs 9. Acute renal failure ? Suspected to be secondary to hepatorenal syndrome as well as volume depletion patient be resuscitated with IV fluid with monitoring of electrolyte with daily BMPs ? 12/24/2023; TEO resolved 10. Paroxysmal atrial fibrillation ? Patient not on systemic anticoagulation due to significant risk for bleeding rate remains controlled 11. Chronic disease ? Stable 12. Essential hypertension ? Patient antihypertensives on hold given his low blood pressure 13. Thrombocytopenia Secondary to chronic alcohol use 14. Tobacco dependence - Counseled on cessation, offered nicotine patch for tobacco cravings 15. Obstructive sleep apnea ? Consistent use of PAP therapy encourage 16. Asthmatic bronchitis ? Bronchodilator treatment as needed 17. Acute alcoholic transaminitis ? Monitoring LFTs 18. DVT prophylaxis ? Bilateral SCDs 19. Diarrhea ? Patient has been placed in enteric precautions while C. difficile is being ruled out ? 12/21/2023 stool for C. difficile came back negative isolation discontinued 20. Severe malnutrition. Related to: in the context of chronic alcohol abuse related to inadequate energy and nutrient-dense oral intake As evidenced by: greater than 25% unintentional weight loss in less than 1 year and oral intake meeting < 50% of estimated nutritional needs x last 6 months With treatment/resources used including: Continue liberalized regular diet; restrict sodium as indicated once PO established with meals. Will add 240mL ensure plus HP w/ breakfast and dinner trays. Adjust ONS as needed once PO established with meals. Time spent in the patient's overall evaluation,decision-making process, review of diagnostic data, adjustment of management, discussion with other providers, nursing nursing and ancillary staff involved in patient's care documentation, 36 minutes Medications at Discharge Home Medications atorvastatin 80 mg tablet 80 mg PO QHS Cholesterol 30 days #30 tabs 10/03/23 carvedilol 25 mg tablet 25 mg PO BID BP 10/03/23 folic acid 1 mg tablet 1 mg PO BREAKFAST #30 tabs 12/25/23 iron, carbonyl 45 mg tablet (Feosol) 45 mg PO DAILY #30 tabs 12/25/23 magnesium chloride 64 mg (magnesium chloride) tablet,delayed release (Mag 64) 128 mg (2 x 64 mg) PO BID #20 tabs 12/25/23 pantoprazole 40 mg tablet,delayed release (Protonix) 40 mg PO DAILY #60 tabs 12/25/23 potassium chloride 20 mEq tablet,extended release(part/cryst) 20 meq PO BIDCM #20 tabs 12/25/23 potassium, sodium phosphates 280 mg-160 mg-250 mg oral powder packet 1 packet PO BID #2 ea 12/25/23 tamsulosin 0.4 mg capsule 0.4 mg PO DAILY@1730 #30 caps 12/25/23 thiamine HCl (vitamin B1) 100 mg tablet 100 mg PO BREAKFAST #30 tabs 12/25/23 Physical Exam Narrative GENERAL: In no apparent distress HEENT: Atraumatic; normocephalic EYES; Anicteric, Normal Conjunctiva NECK; supple, normal thyroid, RESPIRATORY: Diminished to auscultation CARDIOVASCULAR: Regular S1 S2, GI: soft, normoactive bowel sounds, : No Renal angle tenderness; EXTREMITIES: No edema, no clubbing, MUSCULOSKELETAL: no muscle wasting NEURO: no lateralizing signs. SKIN: No Rash PSYCH; flat affect Medical Records Data Medical Nutrition Assessment Dietitian: Malnutrition Criteria Met Start: 12/20/23 11:52 Freq: Status: Active Protocol: Document 12/23/23 10:09 [facility] (Rec: 12/23/23 10:09 [facility] [id number]) Nutrition Malnutrition Evidence of Malnutrition Exists Yes Malnutrition (severe): Chronic,Social/Behavioral/ Environmental Evidenced By Suboptimal Energy Intake ( Severe),Weight Loss (Severe) Clinical Problem Chronic Disease or Condition Related Malnutrition Etiology severe protein-calorie malnutrition in the context of chronic alcohol abuse related to inadequate energy and nutrient-dense oral intake Signs/Symptoms as evidenced by greater than 25% unintentional weight loss in less than 1 year and oral intake meeting < 50% of estimated nutritional needs x last 6 months Status Active Problem Recommendation Dietitian Recommendations/Changes Continue liberalized regular diet; restrict sodium as indicated once PO established with meals. Order 4 oz ensure plus high protein 4x/day w/ medpass Weight / BMI Weight Weight: 70.9 kg Body Mass Index (BMI) 25.1 ABG / Lab / Microbiology Data 12/25/23 06:20 12/25/23 04:05 Laboratory: Laboratory Results - last 24 hr 12/24/23 07:30: Phosphorus 1.7 L, Magnesium 1.3 L 12/25/23 04:05: WBC Cancelled, Corrected WBC Cancelled, RBC Cancelled, Hgb Cancelled, Hct Cancelled, MCV Cancelled, MCH Cancelled, MCHC Cancelled, RDW Std Deviation Cancelled, RDW Coeff of Amanda Cancelled, Plt Count Cancelled, MPV Cancelled, Immature Gran % (Auto) Cancelled, Neut % (Auto) Cancelled, Lymph % (Auto) Cancelled, Petroleum % (Auto) Cancelled, Eos % (Auto) Cancelled, Baso % (Auto) Cancelled, Absolute Neuts (auto) Cancelled, Absolute Lymphs (auto) Cancelled, Total Counted Cancelled, Neutrophils % (Manual) Cancelled, Band Neutrophils % Cancelled, Lymphocytes % (Manual) Cancelled, Monocytes % (Manual) Cancelled, Eosinophils % (Manual) Cancelled, Basophils % (Manual) Cancelled, Metamyelocytes % Cancelled, Myelocytes % Cancelled, Promyelocytes % Cancelled, Blast Cells % Cancelled, Plasma Cell % (Manual) Cancelled, Other Cells % Cancelled, Nucleated RBC % Cancelled, Nucleated RBCs/100 WBC Cancelled, Differential Comment Cancelled, Diff Path Review Cancelled, Hypersegmented Neuts Cancelled, Atypical Lymphocytes Cancelled, Reactive Lymphocytes Cancelled, Smudge Cells Cancelled, Toxic Granulation Cancelled, Toxic Vacuolation Cancelled, Dohle Bodies Cancelled, Santiago Rods Cancelled, Platelet Estimate Cancelled, Plt Morphology Comment Cancelled, RBC Morphology Cancelled 12/25/23 04:05: RBC Morphology Cancelled, Polychromasia Cancelled, Hypochromasia Cancelled, Basophilic Stippling Cancelled, Anisocytosis Cancelled, Microcytosis Cancelled, Macrocytosis Cancelled, Spherocytes Cancelled, Sickle Cells Cancelled, Target Cells Cancelled, Tear Drop Cells Cancelled, Ovalocytes Cancelled, Stomatocytes Cancelled, [place] Bodies Cancelled, Nivia Cells Cancelled, Bite Cells Cancelled, Crenated Cell Cancelled, Acanthocytes (Spur) Cancelled, Rouleaux Cancelled, Schistocytes Cancelled, Sodium 133 L, Potassium 3.7, Chloride 102, Carbon Dioxide 23.0, Anion Gap 8, BUN 6 L, Creatinine 0.80, Estim Creat Clear Calc 100.80, Est GFR (MDRD) Af Amer 131, Est GFR (MDRD) Non-Af 109, BUN/Creatinine Ratio 7.5 L, Glucose 122 H, Calcium 7.5 L, Magnesium 1.9, Total Bilirubin 0.80, AST 35, ALT 23, Alkaline Phosphatase 134 H, Total Protein 4.9 L, Albumin 1.9 L, Globulin 3.0, Albumin/Globulin Ratio 0.6 L 12/25/23 06:20: WBC 4.4, RBC 2.63 L, Hgb 9.0 L, Hct 26.8 L, MCV 101.9 H, MCH 34.2 H, MCHC 33.6, RDW Std Deviation 83.8 H, RDW Coeff of Amanda 22.5 H, Plt Count 295, MPV 9.7, Immature Gran % (Auto) 3.000 H, Neut % (Auto) 48.8, Lymph % (Auto) 22.8, Petroleum % (Auto) 23.3 H, Eos % (Auto) 1.4, Baso % (Auto) 0.7, Absolute Neuts (auto) 2.1, Absolute Lymphs (auto) 1.00, Nucleated RBC % 0 Microbiology: Microbiology 12/19/23 07:50 Blood Culture (Wb) - Right Hand Blood Culture - Final No growth in 5 days. 12/20/23 11:00 Urine Catheter - Catheter Urine Culture - Final Culture exhibits no growth. 12/20/23 05:53 Stool Clostridioides difficile (PCR) - Final 12/18/23 18:20 Stool Stool Occult Blood (LISANDRA) - Final Occult Blood Positive D/C Instructions Discharge Diet: No restrictions Discharge Activity: Return to Normal Activity Call your doctor if you observe: Fever of 101 or Higher, Shortness of breath, Fainting spells and Chest pain Meaningful Use Info Meaningful Use Meaningful Use Diagnoses (Choose all that apply): None applicable Ischemic Stroke Statin Dosing Therapy Reference: STATIN DOSE THERAPY REFERENCE: * Patients > 75 years receive moderate or high dose statin therapy. * Patients 75 years or YOUNGER should receive HIGH intensity statin dose unless contraindicated. You will be required to document reason for non-treatment if statin daily dose does not meet guidelines. HIGH DOSE STATIN THERAPY DAILY Atorvastatin > than or = to 40 mg Rosuvastatin > than or = to 20 mg Amlodipine + Atorvastatin > than or = to 2.5/40 mg Ezetimibe + Simvastatin 10/80 mg Simvastatin 80mg Discharge Plan Admission Admit Date/Time: 12/18/23 21:41 Attending Provider: Arturo Mazariegos Primary Care Provider: Care Physician,No Primary Consulting Providers: Serg White; Shorty Medina; Agapito Huang; Burak Noel; Terry Lobo; Hiren Collado; Kina Wilburn; Jac Bowman; Jorge Barnhart; Hermelinda Segovia; Ascencion Powell; Basilio Simpson; Ludwin Muñiz; Mikel Samuel; Israel Brewster; Tom Johnson Discharge Orders/Prescriptions Prescriptions: New thiamine HCl (vitamin B1) 100 mg Tablet 100 mg PO BREAKFAST Qty: 30 0RF potassium chloride 20 mEq Tablet,Er Particles/Crystals 20 meq PO BIDCM Qty: 20 0RF tamsulosin 0.4 mg Capsule 0.4 mg PO DAILY@1730 Qty: 30 0RF folic acid 1 mg Tablet 1 mg PO BREAKFAST Qty: 30 0RF potassium, sodium phosphates 280-160-250 mg Powder In Packet 1 packet PO BID Qty: 2 0RF magnesium chloride [Mag 64] 64 mg Tablet,Delayed Release (Dr/Ec) 128 mg PO BID Qty: 20 0RF pantoprazole [Protonix] 40 mg tablet,delayed release (DR/EC) 40 mg PO DAILY Qty: 60 0RF iron, carbonyl [Feosol] 45 mg tablet 45 mg PO DAILY Qty: 30 0RF Continued carvedilol 25 mg tablet 25 mg PO BID atorvastatin 80 mg Tablet 80 mg PO QHS 30 Days Qty: 30 0RF Discontinued aspirin 81 mg Tablet,Delayed Release (Dr/Ec) 81 mg PO BREAKFAST 30 Days Qty: 30 0RF lisinopril 10 mg Tablet 10 mg PO DAILY 30 Days Qty: 30 0RF Referrals / Follow Up: Friend,DO Serg [Med Staff - Active Staff] - Within 2 Weeks Care Physician,No Primary [Primary Care Provider] - Within 2 Weeks Disposition Disposition (needs filled in before D/C Order can be placed): Home, Self Care Charges/Coding Visit Charges Inpatient E&M: 87296 Disch Hosp >30min
[2023-12-25 10:11] VITALS: BP 96/74; PULSE 85; RESP 18; TEMP 36.4; O2SAT 97
[2023-12-25] MEDS: Folic Acid 1 MG Tablet PO (10:14)
[2023-12-25] MEDS: Thiamine Hydrochloride 100 MG Tablet PO (10:14)
[2023-12-25] MEDS: Magnesium Chloride 64 MG Delay Rel.Tablet 128 MG PO (10:15)
[2023-12-25] MEDS: Na Biphos/Potassium Phosphate PACKET 1 PACKET PO (10:15)
[2023-12-25] MEDS: Potassium Chloride Oral Tablet 20 MEQ PO (10:16)
== END 2023-12-25 11:38 | disposition home or self-care (01) | DRG 377 ==
LOC: ED 21:19 → SDC 21:28 → AC 21:32 → ICU 23:28 → SDC 12-21 12:59 → ICU 12-21 12:59 → PCU 12-23 17:15
PROVIDERS: Internal Medicine; Internal Medicine Critical Care Medicine; Admitting Provider Internal Medicine Gastroenterology; Emergency Provider Emergency Medicine; Visit Provider Internal Medicine
PROC: 0DJ08ZZ Inspection of Upper Intestinal Tract, Via Natural or Artificial Opening Endoscopic (ICD-10-PCS; CPT 43235; principal; 2023-12-18 21:45)
DX: K25.4 Chronic or unspecified gastric ulcer with hemorrhage (principal); K76.7 Hepatorenal syndrome; R57.1 Hypovolemic shock; N17.0 Acute kidney failure with tubular necrosis; E43 Unspecified severe protein-calorie malnutrition; I24.89 Other forms of acute ischemic heart disease; D68.32 Hemorrhagic disorder due to extrinsic circulating anticoagulants; E87.20 Acidosis, unspecified; I50.32 Chronic diastolic (congestive) heart failure; F10.239 Alcohol dependence with withdrawal, unspecified; D62 Acute posthemorrhagic anemia; E87.1 Hypo-osmolality and hyponatremia; K31.1 Adult hypertrophic pyloric stenosis; E83.51 Hypocalcemia; J44.9 Chronic obstructive pulmonary disease, unspecified; I11.0 Hypertensive heart disease with heart failure; K26.9 Duodenal ulcer, unspecified as acute or chronic, without hemorrhage or perforation; I48.0 Paroxysmal atrial fibrillation; K21.00 Gastro-esophageal reflux disease with esophagitis, without bleeding; K70.10 Alcoholic hepatitis without ascites; K70.30 Alcoholic cirrhosis of liver without ascites; E87.6 Hypokalemia; E78.5 Hyperlipidemia, unspecified; M19.90 Unspecified osteoarthritis, unspecified site; G47.33 Obstructive sleep apnea (adult) (pediatric); I25.2 Old myocardial infarction; I25.10 Atherosclerotic heart disease of native coronary artery without angina pectoris; F17.210 Nicotine dependence, cigarettes, uncomplicated; E83.42 Hypomagnesemia; K31.84 Gastroparesis; I95.2 Hypotension due to drugs; R19.7 Diarrhea, unspecified; T42.3X5A Adverse effect of barbiturates, initial encounter; Y90.5 Blood alcohol level of 100-119 mg/100 ml; T39.015A Adverse effect of aspirin, initial encounter; K29.21 Alcoholic gastritis with bleeding; F41.1 Generalized anxiety disorder; Z79.82 Long term (current) use of aspirin; Z79.899 Other long term (current) drug therapy; Z95.5 Presence of coronary angioplasty implant and graft; Z95.810 Presence of automatic (implantable) cardiac defibrillator; Z68.25 Body mass index [BMI] 25.0-25.9, adult
CPT/HCPCS: 36415; 36569; 71045; 74174; 80053; 81001; 82077; 82274; 82803; 83605; 83735; 84100; 84145; 84443; 84484; 85025; 85610; 85730; 86850; 86900; 86901; 86920; 86922; 87040; 87086; 87493; 87641; 93005; 94762; 97162; 97166; 97530; 97802; 99284; 99406; J7030; J7040; J7050; J7120; P9016; Q9967; A4216; J0612; J2354; J3420; J3490